=== PATIENT | female | born 1945 | race Caucasian/White ===

== ENCOUNTER → 2016-05-18 | Outpatient (CLI) | payer OTHER, MEDICARE | LOC: FIMAGING 10:35 | DX: Z12.31 Encounter for screening mammogram for malignant neoplasm of breast (principal); Z85.3 Personal history of malignant neoplasm of breast; Z80.3 Family history of malignant neoplasm of breast | CPT/HCPCS: G0202 ==

== ENCOUNTER → 2016-05-29 | Outpatient (CLI) | payer OTHER, MEDICARE | LOC: FIMAGING 10:15 | PROVIDERS: ATTEND Internal Medicine | DX: L90.5 Scar conditions and fibrosis of skin (principal) ==

== ENCOUNTER 2017-03-01 10:20 | Day surgery (SDC) | payer OTHER, MEDICARE ==
--- NOTE | 2017-03-01 07:23 | PDHPUP ---
History & Physical Update H&P update statement: This history and physical update is based on an assessment of the patient which was completed after admission or registration (within 24 hours), but prior to the surgery/procedure. updated
[~2017-03-01 10:20] MED LIST: CLINDAMYCIN 900 MG/DEXTROSE 50 ML IV ONE
[2017-03-01] MEDS ORDERED: LIDOCAINE 1% 2 ML INJ ID PRN (10:31)
[2017-03-01] MEDS ORDERED: LR 1,000 ML IV ONE (10:31)
[2017-03-01 11:07] VITALS: PULSE 74
[2017-03-01] MEDS ORDERED: CLINDAMYCIN 900 MG/DEXTROSE 50 ML IV ONE (11:30)
--- NOTE | 2017-03-01 11:43 | PDANEPAE ---
ANE History of Present Illness I& D of R breast ANE Past Medical History - Cardiovascular History Hx Hypertension: Yes Hx Arrhythmias: No Hx Chest Pain: No Hx Coronary Artery / Peripheral Vascular Disease: No Hx CHF / Valvular Disease: No Hx Palpitations: No Cardiovascular History Comment: AORTIC REGURITATION. HX PVC'S,SINUS TACH - Pulmonary History Hx COPD: No Hx Asthma/Reactive Airway Disease: Yes Hx Oxygen in Use at Home: No Hx Sleep Apnea: No Sleep Apnea Screening Result - Last Documented: Negative Pulmonary History Comment: ASTHMA TRIGGERS VIRUS. PE 1983 - Neurologic History Hx Cerebrovascular Accident: No Hx Seizures: No Hx Dementia: No - Endocrine History Hx Diabetes: Yes Endocrine History Comment: NIDDM - Renal History Hx Renal Disorders: No - Liver History Hx Hepatic Disorders: No - Neurological & Psychiatric Hx Hx Neurological and Psychiatric Disorders: No - Cancer History Hx Cancer: Yes Cancer History Comment: BREAST POST LYMPHEDEMA - Congenital Disorder History Hx Congenital Disorders: No - GI History Hx Gastrointestinal Disorders: Yes Gastrointestinal History Comment: REFLUX - Other Health History Other Health History: RT LEG RELLEX SYMPATHETIC DYSTROPHY. CHRONIC SINUS - Chronic Pain History Chronic Pain: Yes (RT BREAST) - Surgical History Prior Surgeries: RT BREAST LUMPECTOMY 01/29/2017 DEVELOPED POST HEMATOMA. RT EYE VITRECTOMY 04/2014. RT BREAST LUMPECTOMY. RT KNEE SCOPE. RT SHLDR SCOPE. LT ARM ORIF. APPENDECTOMY ANE Review of Systems Review of Systems: - Exercise capacity METS (RN): 4 METS ANE Patient History - Allergies Allergies/Adverse Reactions: meperidine HCl [From Demerol] Allergy (Intermediate, Verified 01/15/14 00:03) TACHYCARDIC levofloxacin [From Levaquin] Allergy (Mild, Verified 01/15/14 00:03) "COULDNT STAND UP - NO STRENGTH" epinephrine [Epinephrine] Allergy (Unknown, Verified 01/15/14 00:03) TACHYCARDIC acetaminophen [From Percocet] Allergy (Verified 03/01/17 11:27) Other-Enter Comments oxycodone [From Percocet] Allergy (Verified 03/01/17 11:27) Other-Enter Comments Penicillins Allergy (Verified 01/15/14 00:03) THROAT SWELLING - Home Medications Home Medications: Atenolol [Tenormin 50 mg (RX)] 50 mg PO DAILY06 01/15/14 [Last Taken 03/01/17] CETIRIZINE HCL [ZYRTEC] 10 mg PO DAILY06 01/15/14 [Last Taken 02/28/17] Fluticasone Nasal [Flonase Nasal [place] (RX)] 1 sprays NASAL PRN 01/15/14 [Last Taken 02/28/17] Losartan Potassium [Cozaar] 100 mg PO DAILY06 01/15/14 [Last Taken 03/01/17] Montelukast Sodium [Singulair] 10 mg PO DAILY06 01/15/14 [Last Taken 03/01/17] metFORMIN HCL [Glucophage] 500 mg PO DAILY06 01/15/14 [Last Taken 02/28/17] Herbal Drugs DAILY 02/28/17 [Last Taken 02/22/17] Nexium DAILY06 02/28/17 [Last Taken 03/01/17] - NPO status NPO Since - Liquids (Date): 03/01/17 NPO Since - Liquids (Time): 08:00 NPO Since - Solids (Date): 02/28/17 NPO Since - Solids (Time): 21:30 - Anes Hx Hx Anesthesia Complications (with details): postoperative hypoxia with previous anesthetics - Smoking Hx Smoking Status: Never smoked - Alcohol Use Alcohol Use: Rarely - Family Anes Hx Family Anes Hx: none ANE Labs/Vital Signs - Vital Signs Blood Pressure: 133/81 Heart Rate: 74 Respiratory Rate: 14 O2 Sat (%): 93 Height: 173.99 cm Weight: 95.254 kg ANE Physical Exam - Airway Neck exam: FROM Mallampati Score: Class 1 Mouth exam: normal dental/mouth exam - Pulmonary Pulmonary: clear to auscultation - Cardiovascular Cardiovascular: regular rate and rhythym (1) ANE Anesthesia Plan Anesthesia Plan: general endotracheal anesthesia (possibility of need for postop O2 use discussed.)
[2017-03-01] MEDS ORDERED: MIDAZOLAM 2 MG/2 ML VIAL IVP ONE (11:48)
[2017-03-01] MEDS ORDERED: REMIFENTANIL HCL 1 MG VIAL ONE (11:59)
[2017-03-01] MEDS ORDERED: PROPOFOL 200 MG/20 ML VIAL ONE (12:00)
[2017-03-01] MEDS ORDERED: ROCURONIUM 50 MG/5 ML VIAL ONE (12:06)
[2017-03-01] MEDS ORDERED: DEXAMETHASONE 4 MG/ML VIAL ONE (12:06)
[2017-03-01] MEDS ORDERED: BUPIVACAINE 0.5% 30 ML SDV ONE (12:09)
[2017-03-01] MEDS ORDERED: PHENYLEPHRINE HCL 100 MCG/ML SYR ONE (12:17)
[2017-03-01] MEDS ORDERED: THROMBIN (BOVINE) 5,000 UNIT VIAL TP ONE (12:36)
[2017-03-01] MEDS ORDERED: GLYCOPYRROLATE 0.2 MG/1 ML VIAL ONE ×2 (12:45)
[2017-03-01] MEDS ORDERED: NEOSTIGMINE METHYLSULFATE 3 MG/3 ML SYR ONE (12:45)
--- NOTE | 2017-03-01 12:49 | POSTOPPROG ---
Post Op Note Date of Operation: 03/01/17 Surgeon: José Arango Anesthesiologist: CARMEN Anesthesia: GET(General Endotracheal) Pre-op Diagnosis: RIGHT BREAST HEMATOMA Post-op Diagnosis: SAME Indication: PAIN Procedure: I&D RT BREAST HEMATOMA Findings: 50 CC HEMATOMA Inf/Abcess present in the surg proc area at time of surgery?: No Depth: Deep Incisional (Fascial) EBL: Minimal Complications: 0 Drains: Grant Graham
[2017-03-01] MEDS ORDERED: ALBUTEROL 3 ML DEYVIAL IH PRN (13:01)
[2017-03-01] MEDS ORDERED: ALBUTEROL 3 ML DEYVIAL ONE (13:10)
--- NOTE | 2017-03-01 14:01 | PDHOMEO2F ---
Home Oxygen Face to Face Home Orders: I certify that a physician or a nurse practitioner or physician's assistant elementary teacher has had a [id number] encounter with this patient on the date of this order due to the diagnosis listed, which relates to the primary reason the patient requires home oxygen. Alternative treatments have been tried, or considered, and deemed ineffective. It is anticipated that supplemental oxygen will result in improvement with treatment. Home oxygen qualifying diagnosis: postop hypoxia SpO2 on room air (%): 84 Frequency of home oxygen needed: continuous Home oxygen liters per minute: 0.5-2 l/min to maintain O2Sat > 92 Home oxygen delivery device: nasal cannula Concentrator: Yes E-tanks for mobility and back up: Yes If ordering portable O2, is the patient mobile in the home?: Yes I certify that, based on these findings, the home oxygen is medically necessary for this patient for the following length of time. Length of time home oxygen needed: 1 week
[2017-03-01] MEDS ORDERED: IBUPROFEN 800 MG TAB PO ONE (14:06)
--- NOTE | 2017-03-01 14:09 | POSTANESTH ---
Post Anesthetic Evaluation Cardiovascular Status: Normal, Stable Respiratory Status: Tx Decrease in SpO2 Level of Consciousness/Mental Status: Can Participate in Eval Pain Control: Adequate, Prn Tx Ordered Nausea/Vomiting Control: Adequate, Prn Tx Ordered Complications Possibly Related to Anesthesia: Other, See Comments (patient with postoperative hypoxia after general anesthesia. She will require supplemental O2 at home. Discussed with patient, questions answered.)
[2017-03-01] MEDS ORDERED: IBUPROFEN 200 MG TAB PO ONE (14:13)
[2017-03-01 14:44] VITALS: RESP 19
[2017-03-01 17:06] VITALS: BP 127/87; O2SAT 95
[2017-03-01 17:09] VITALS: TEMP 98.1
== END 2017-03-01 16:40 | disposition home or self-care (01) ==
LOC: FSGY 10:20
PROVIDERS: ATTEND Surgery
PROC: 0H9T0ZZ Drainage of Right Breast, Open Approach (ICD-10-PCS; principal; 2017-03-01 11:45)
DX: N64.89 Other specified disorders of breast (principal); L76.32 Postprocedural hematoma of skin and subcutaneous tissue following other procedure; N64.4 Mastodynia; I10 Essential (primary) hypertension; J45.909 Unspecified asthma, uncomplicated; K22.70 Barrett's esophagus without dysplasia; I35.1 Nonrheumatic aortic (valve) insufficiency; E11.9 Type 2 diabetes mellitus without complications; Z85.3 Personal history of malignant neoplasm of breast; Z86.711 Personal history of pulmonary embolism
CPT/HCPCS: J1100; J2250; J2370; J2704; J2710

== ENCOUNTER 2017-03-11 21:19 | Emergency (ER) | payer OTHER, MEDICARE ==
[2017-03-11 21:26] VITALS: RESP 18
--- NOTE | 2017-03-11 22:14 | EDPHY ---
H & P Time Seen by Provider: 03/11/17 21:37 HPI/ROS: CHIEF COMPLAINT: [Breast swelling, pain ] HISTORY OF PRESENT ILLNESS: The patient is a 72-year-old female with a remote history of breast cancer in 2008. She had a lumpectomy at that time. Patient had a repeat lumpectomy on 01/29/2017. She subsequently developed hematoma. This required repeat surgery on 03/07/2017. A drain was placed. On Saturday the patient saw her physician, Dr. Arango, and her breasts was noted to be slightly more red and swollen. The drain was pulled. Patient was started on Bactrim. The patient states that since that time she has had increased swelling and pain. Drastically increased today. She also reports fevers and chills. Her temperature was 100degrees at home. She describes moderate pain. Her daughter is a nurse. She states that this is much more red and swollen than it had been yesterday. REVIEW OF SYSTEMS: My complete review of systems is negative except as mentioned in the HPI. Past Medical/Surgical History: Includes breast cancer, prediabetes, asthma, coronary artery disease with [place] Past surgical history: Lumpectomy Social history: Patient works at [employer]. She denies smoking. Smoking Status: Never smoked Physical Exam: 37.1, 131/90, 82, 18, 97% on room air GENERAL: Well-appearing, in no acute distress, alert. HEENT: Eyes normal to inspection, normal pharynx, no signs of dehydration. NECK: [No thyromegaly, no lymphadenopathy, supple. RESPIRATORY: Clear to auscultation bilaterally, no rales, rhonchi or wheezing. Chest: Patient has a markedly swollen right breast. There is significant erythema surrounding the breast. This is warm to touch. There is streaking into the right axilla. There is a 4 in palpable mass. This is not fluctuant. CVS: Regular rate and rhythm, no rubs, murmurs, or gallops. ABDOMEN: Soft, nontender, nondistended, no organomegaly. BACK: Normal to inspection, no CVA tenderness. SKIN: Normal color, no rash, warm, dry. No pallor. EXTREMITIES: No pedal edema, no calf tenderness, no Homans sign or cords, no joint swelling. NEURO/PSYCH: Alert and oriented x3, normal mood and affect, normal motor sensory exam. No obvious cranial nerve deficit. Constitutional: Initial Vital Signs Temperature (C) 37.1 C 03/11/17 21:25 Heart Rate 82 03/11/17 21:25 Respiratory Rate 18 03/11/17 21:25 Blood Pressure 131/90 H 03/11/17 21:25 O2 Sat (%) 97 03/11/17 21:25 O2 Delivery Mode Room Air Allergies/Adverse Reactions: meperidine HCl [From Demerol] Allergy (Intermediate, Verified 03/11/17 21:27) TACHYCARDIC levofloxacin [From Levaquin] Allergy (Mild, Verified 03/11/17 21:27) "COULDNT STAND UP - NO STRENGTH" epinephrine [Epinephrine] Allergy (Unknown, Verified 03/11/17 21:27) TACHYCARDIC oxycodone [From Percocet] Allergy (Verified 03/11/17 21:27) Other-Enter Comments Penicillins Allergy (Verified 03/11/17 21:27) THROAT SWELLING Home Medications: Medication Instructions Recorded Atenolol [Tenormin 50 mg (RX)] 50 mg PO DAILY06 01/15/14 CETIRIZINE HCL [ZYRTEC] 10 mg PO DAILY06 01/15/14 Fluticasone Nasal [Flonase Nasal 1 sprays NASAL PRN 01/15/14 [place] (RX)] Losartan Potassium [Cozaar] 100 mg PO DAILY06 01/15/14 Montelukast Sodium [Singulair] 10 mg PO DAILY06 01/15/14 metFORMIN HCL [Glucophage] 500 mg PO DAILY06 01/15/14 Herbal Drugs DAILY 02/28/17 Nexium DAILY06 02/28/17 Medical Decision Making ED Course/Re-evaluation: In the emergency department I discussed possible etiologies with the patient and her daughter. I answered all her questions. IV was placed. Laboratory studies and blood cultures were obtained. Patient was given vancomycin 1 g IV. I discussed the case with Dr. Burden who will admit the patient for further evaluation and care. I discussed the plan with the patient. I answered all her questions. Differential Diagnosis: My differential includes but is not limited to cellulitis, abscess, malignancy, mass, bacteremia, sepsis Departure - Departure Disposition: [facility] Inpatient Acute Clinical Impression: Cellulitis Qualifiers: Site of cellulitis: other site Qualified Code(s): L03.818 - Cellulitis of other sites Condition: Good Referrals: Lilia Romero MD [Primary Care Provider] - As per Instructions
[2017-03-11] MEDS ORDERED: VANCOMYCIN HCL/NORMAL SALINE 250 ML IV ONE (22:22)
[2017-03-11 22:28] LABS: PLATELET COUNT 353 10^3/uL (150-400)
[2017-03-11 22:37] LABS: INR 1.03 (0.83-1.16); PROTIME(PATIENT) 13.7 SEC (12.0-15.0)
[2017-03-11 23:01] VITALS: TEMP 97.9
[2017-03-11] MEDS ORDERED: NS 1,000 ML IV ONE (23:24)
[2017-03-12 00:54] VITALS: BP 117/70; PULSE 75; O2SAT 96
--- NOTE | 2017-03-12 03:13 | GCON ---
[f rep st] CONSULTATION DATE OF CONSULTATION: 03/11/2017 CHIEF COMPLAINT: Right breast pain. HISTORY OF PRESENT ILLNESS: This is a 72-year-old, patient of my partner Dr. Arango. Briefly, she had lumpectomy all the way back in 2008 and had a persistent area of what appeared to be necrotic breast tissue and was subsequently taken back for repeat lumpectomy in January of this year. At any rate, had a hematoma at the residual operative site and subsequently went back last week on the with Dr. Arango where this was washed out and a drain was placed on an outpatient procedure. She subsequently went home. She followed up with him in clinic this last Saturday. The drain output was fairly minimal, and there was no residual cellulitis, and the drain was subsequently removed. She states that Donnie she felt well, yesterday began to have what appeared to be more general malaise feeling, but otherwise felt fine. She did have a little bit of increasing fullness in her breast and today this increased even more so to the point where she had worsening cellulitis and pain at the area in addition to the cellulitis and pain, which she describes as burning, constant, and nonradiating 7/10 at worst intensity. She does endorse having chills, but without gregoria fever. Because of this, she presented to the emergency department. Upon presentation, she was evaluated by the ED physician, who noted a fair amount of induration and fluctuance on the right breast. On my examination, currently the patient complains of the same. She has gotten some pain medicine, which has helped somewhat. She is overall well-appearing, but does still complain of persistent pain. She is currently taking Bactrim, which was prescribed on Saturday for the cellulitis, which I think is appropriate. PAST MEDICAL HISTORY: Breast cancer, pre-diabetes, asthma, coronary artery disease with a history of CA. PAST SURGICAL HISTORY: Lumpectomy x2. 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 Denies illicit drug use. Nonsmoker. REVIEW OF SYSTEMS: A full 10-point review was performed and, unless explicitly stated above, is otherwise negative. PHYSICAL EXAMINATION: VITAL SIGNS: Temp 36.6, blood pressure 104/84, her heart rate is 76, and she is 94% on room air. CONSTITUTIONAL: She is in no apparent distress. She appears comfortable. EYES: Her pupils are equal, round , and reactive to light and accommodation. EARS, NOSE, MOUTH, THROAT: Moist mucous membranes. Her hearing is normal. CARDIOVASCULAR: She has a regular rate and rhythm without murmur. RESPIRATORY: She has no respiratory distress, rales, or rhonchi. BREASTS: The previous drainage and drain sites on the right breast are well healed. In the superior portion of the central portion of the breast, there is a significant amount of induration with central fluctuance, which is tender to palpation. There is no nipple drainage or ipsilateral axillary adenopathy. The left breast is unremarkable. SKIN: Aside from the cellulitis on the right breast, she has no other skin lesions. MUSCULOSKELETAL: Full strength, no weakness, no tenderness. NEUROLOGIC: She is alert and oriented x3. Her cranial nerves 2-12 are intact. PSYCH: She is interacting appropriately, she is not anxious, and she has a linear thought process. LYMPH/HEMO/IMMUNOLOGIC: No cervical, axillary, or groin lymphadenopathy appreciated. LABORATORY DATA: Leukocytosis to 12,000 without a left shift. H and H 12 and 36. Coag's are normal. Chemistry is unremarkable. Bedside ultrasound performed by me does show a significant probably 3 x 2 fluid collection 2 cm deep to the area of greatest induration, which appears simple without loculations. ASSESSMENT AND PLAN: A 72-year-old female with breast cellulitis and underlying fluid collection status post drainage procedure. I discussed my findings with the patient. It appears as though the fluid collection has recurred. The overlying cellulitis, at this point is not overly concerning, but I do feel that she warrants aspiration here at the bedside to remove that residual fluid collection today. I also told her that given the aggressive nature of the fluid recurrence and cellulitis that she would likely benefit from at least a dose of IV antibiotics and re-evaluation to see whether or not she meets criteria for admission at that point in time or can be discharged home. She is eager to be discharged home. After discussing the risks, benefits , and alternatives, she does wish to proceed with bedside aspiration. Please see separate dictation for this. /[id number]/MODL MTDD
--- NOTE | 2017-03-12 03:17 | GOP ---
[f rep st] OPERATIVE REPORT DATE OF OPERATION: 03/11/2017 SURGEON: Ignacio Burden MD FINANCIAL REPORTING ANALYST: None. ANESTHESIA: 1% lidocaine. PREOPERATIVE DIAGNOSIS: Right breast hematoma. POSTOPERATIVE DIAGNOSIS: Right breast hematoma. PROCEDURE PERFORMED: Right breast fluid aspiration, ultrasound-guided. FINDINGS: Fluid completely removed, approximately 45 cc in total. It did appear somewhat purulent. Cultures were taken. SPECIMENS: Fluid for culture. DESCRIPTION OF PROCEDURE: The patient was greeted in the Emergency Room [place]. After describing the r isks, benefits, and alternatives, consent was signed. A World Health Organization time-out was perfo rmed, after which the right breast was prepped and draped in the typical sterile fashion. I anesthet ized the area using approximately 5 cc of 1% lidocaine without epinephrine. After successful anesthe tization, I used an 18-gauge needle and successfully entered the cavity, which was identified via ult rasound guidance. Once in the cavity, I removed approximately 45 cc of mostly seropurulent fluid, a portion of which was sent for cultures. After this was done, hemostasis was obtained with gentle pre ssure. A post-procedure ultrasound showed that the fluid cavity had completely resolved. The patien t tolerated the procedure well, with no intraprocedural complications. DRAINS: None. /[id number]/MODL
== END 2017-03-12 00:52 | disposition still patient (30) ==
LOC: EEVIPCON 22:22 → UNDOADMOB 22:22
PROC: 0H9T3ZX Drainage of Right Breast, Percutaneous Approach, Diagnostic (ICD-10-PCS; principal; 2017-03-11)
DX: N61.0 Mastitis without abscess (principal); Z85.3 Personal history of malignant neoplasm of breast; E11.9 Type 2 diabetes mellitus without complications; I25.10 Atherosclerotic heart disease of native coronary artery without angina pectoris
CPT/HCPCS: 10021; 96361; 96365; 99285; J3370

== ENCOUNTER 2017-03-13 14:47 | Inpatient (IN) | payer OTHER, MEDICARE ==
[2017-03-13] MEDS ORDERED: ERTAPENEM 1 GM VIAL IVP SCH (16:30)
[2017-03-13] MEDS ORDERED: ONDANSETRON 4 MG/2 ML VIAL IVP PRN (16:31)
[2017-03-13] MEDS ORDERED: HYDROmorphONE/DILAUDID 1 MG/ML INJ IVP PRN (16:31)
[2017-03-13] MEDS ORDERED: diphenhydrAMINE 25 MG CAP PO PRN (16:32)
--- NOTE | 2017-03-13 18:45 | GHP ---
[f rep st] HISTORY AND PHYSICAL DATE OF ADMISSION: 03/13/2017 HISTORY OF PRESENT ILLNESS: The patient is a 72-year-old female with a history of breast cancer who is now status post right surgical breast biopsy with benign findings of stromal fibrosis and ductal h yperplasia without atypia. She developed a hematoma which was quite tender and eventually elected fo r incision and drainage. Her Esther drain was removed and her wound had healed. Two days ago, on mas, she developed increased tenderness, warmth, and general malaise. She was seen in the emerg ency department and underwent aspiration with reportedly gross purulence. About 45 mL were removed. This was confirmed with ultrasound guidance. Cultures ultimately revealed coagulase negative Staph and ESBL Klebsiella pneumonia. She was given vancomycin in the ED and told to continue her Bactrim. She returned today with increased tenderness and redness of her right breast despite the above. Als o, she and her daughter, who is a nurse, note a malodor. She denies fevers or chills but is feeling tired. No nausea, vomiting, diarrhea, or constipation. PAST MEDICAL AND SURGICAL HISTORY: Right breast cancer status post lumpectomy, shoulder surgery, RSD resulting from a crush injury of her lower extremity, lymphedema, hypertension, history of pulmonary embolism, section, arthroscopic knee surgery, ovarian cystectomy, appendectomy, tonsillecto my, breast lumpectomy. 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 She comes today with her daughter who is a nurse. She also has a grandchild. FAMILY HISTORY: Noncontributory. MEDICINES: Please see MAR. ALLERGIES: Penicillin, meperidine, levofloxacin, oxycodone, and epinephrine. REVIEW OF SYSTEMS: Negative aside from that in the HPI. PHYSICAL EXAMINATION: GENERAL: A well-developed, well-nourished, pleasant, 72-year-old female, aler t and oriented x3, in no acute distress. HEENT: Normocephalic, atraumatic. Mucous membranes moist. Sclerae anicteric. CHEST: Clear to auscultation bilaterally. CARDIAC: Regular rate and rhythm. ABDOMEN: Soft, nontender. BREAST EXAM: Right breast with tenderness, erythema and warmth. Incisi on is clean, dry, and intact. IMPRESSION: This is a 72-year-old female with a recurrent right breast abscess. PLAN: Admit the patient for observation and IV antibiotics. I have also discussed this with Dr. Shanta Pollard, who will assist in antibiotic selection and will continue to follow her along. We plan to br ing her to the operating room tomorrow for incision and drainage. We will hold any anticoagulants. Risks and options have been discussed with both Mahnaz and her daughter and they request to proceed. /[id number]/MODL
[2017-03-13] MEDS: diphenhydrAMINE 25 MG CAP PO PRN (20:36)
[2017-03-13] MEDS: ERTAPENEM 1 GM VIAL IVP SCH (21:23)
[2017-03-14] MEDS: ACETAMINOPHEN 325 MG TAB PO PRN ×2 (05:22→13:46)
--- NOTE | 2017-03-14 05:36 | GCON ---
[f rep st] CONSULTATION INFECTIOUS DISEASE CONSULTATION. DATE OF CONSULTATION: 03/13/2017 REQUESTING PHYSICIAN: JERMAN Butler. REASON FOR CONSULTATION: Right breast infection. HISTORY OF PRESENT ILLNESS: The patient is a 72-year-old female with a past medical history of breas t cancer, who underwent right-sided lumpectomy in January for persistent breast mass which revealed benign findings. Postoperatively, she developed a hematoma which required incision and drainage. Th e patient had a MAGALY drain in place which had stopped draining and subsequently was removed. Thereafte r, she developed recurrent erythema, edema, and tenderness. This was associated with significant mal aise with chills but no fever. The patient had progressive symptoms prompting her evaluation in the emergency department on 03/11/2017. She underwent aspiration of a recurrent fluid collection at that point in time, which yielded 45 mL of seropurulent fluid. Gram stain of the specimen showed 1+ GPC these with 1+ gram-negative rods. Culture is currently growing an ESBL producing Klebsiella pneumoni ae. She also had blood cultures done at the time of presentation with 1 of 4 bottles showing coagula se-negative Staphylococcus. She was given a dose of vancomycin and discharged home on Bactrim. She initially felt significantly improved post aspiration, but developed recurrent pain, erythema, indura tion, and tenderness with malaise, prompting admission today. She is scheduled to undergo incision a nd drainage of the right breast in the a.m. She does not have any active fever. Did have subjective chills but no rigors. She also describes having intermittent flank pain over the last several days. She has had some nausea, but no vomiting or diarrhea. Given the ice impression she had a prior pen icillin allergy at age 8, which she described as being consistent with anaphylaxis. When she took Le vaquin, she developed tendinopathy in the hip. Given isolation of ESBL producing Klebsiella pneumoni ae, breast infection, and allergy history, I am now asked to assist in her ongoing management. 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 PAST SURGICAL HISTORY: Prior lumpectomy and lumpectomy as outlined above, shoulder surgery, C-sectio n, arthroscopic knee surgery, appendectomy, tonsillectomy. MEDICATIONS: Prior to admission, Bactrim DS twice daily, metformin 500 mg p.o. daily, atenolol 25 mg p.o. daily, Zyrtec 10 mg p.o. daily, Flonase nasal spray daily, vitamin D 2000 units p.o. daily, pro biotics daily, losartan 100 mg p.o. daily, Singulair 10 mg p.o. daily, albuterol as needed, Nexium 40 mg p.o. daily, Flovent 1 puff twice daily. ALLERGIES: Penicillin associated with anaphylaxis at approximately age 8, levofloxacin associated wi th tendon inflammation and inability to ambulate, meperidine. Vancomycin associated with scalp itchi ng which is consistent with red man syndrome rather than true allergy. SOCIAL HISTORY: No tobacco or alcohol use. 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 FAMILY HISTORY: Noncontributory. REVIEW OF SYSTEMS: Outside that noted in the HPI, remainder of a review of systems is unremarkable. PHYSICAL EXAMINATION: VITAL SIGNS: Temperature 37.1, heart rate 82, respiratory rate 16, blood pres sure 113/74, oxygen saturation 92% on room air. GENERAL: Patient is well nourished, well developed, in no acute distress. She appears nontoxic. HEENT: There is no scleral icterus, conjunctival inje ction, or conjunctival petechiae. Oropharynx clear without lesions. Dentition is in good repair. M ucous membranes are moist. No nasal discharge. NECK: Supple without palpable lymphadenopathy or th yromegaly. CHEST: Clear to auscultation bilaterally without adventitious sounds. Respiratory effor t is normal. CARDIOVASCULAR: Regular rate and rhythm with a 2/6 systolic ejection murmur heard at t he left and right upper sternal borders. ABDOMEN: Soft, nontender, nondistended. There is no palpa ble organomegaly. BACK: No CVA tenderness bilaterally. BREASTS: Right breast shows erythema, dianne ration, warmth and tenderness over the upper quadrants bilaterally; no palpable fluctuance or express ible discharge. Erythema does not extend over the chest wall or into the upper extremity. MUSCULOSK ELETAL: No cyanosis, clubbing, or edema. LYMPHATICS: No cervical or supraclavicular nodes palpable . No lymphangitis in right upper extremity. NEUROLOGIC: Patient is alert and interacts appropriate ly with examiner. Cranial nerves 2-12 are grossly intact. Sensation is grossly intact. Muscle tone and bulk are normal. LABORATORY DATA: White blood cell count 12.5, hematocrit 36.6, platelets 353, neutrophils 53%, lymph ocytes 28%, creatinine 0.9 (laboratory data is from 03/11/2017). Blood cultures from 03/11/2017 with 1 of 4 bottles showing coagulase-negative Staph; breast cultures from 03/11/2017 showing 1+ GPC, 1+ gram-negative rods, 4+ white blood cells with growth of Klebsiella pneumoniae which is an ESBL produc ing organisms; no Gram positives are growing to date; isolate is resistant to Bactrim. IMPRESSION: 1. Right breast infection with probable recurrent infected hematoma/seroma: Cultures have shown aletha wth of extended-spectrum beta-lactamaseses producing Klebsiella pneumoniae and Gram stain also showed gram-positive cocci. No gram-positive key have grown, however. Will initiate therapy with ertape nem, which will provide activity against extended-spectrum beta-lactamaseses producing Klebsiella pne umoniae as well as activity against gram-positive key other than methicillin-resistant Staphylococc us aureus. Given allergy history is remote, suspect will tolerate ertapenem. Will premedicate with Benadryl prior to infusion. Agree with plans for incision and drainage of this will be necessary for definitive resolution. 2. Positive blood cultures: 1 of 4 bottles with growth of coagulase-negative Staphylococcus. Suspe ct this represents skin contamination rather than true bacteremia. 3. Penicillin allergy: See above discussion. RECOMMENDATIONS: 1. Ertapenem 1 g IV q.24 hours with Benadryl premedication. 2. Follow up prior cultures as available and will obtain new intraoperative cultures. 3. Repeat blood cultures x2 sets. 4. Contact isolation for ESBL. 5. Plan of care discussed with patient and family this evening. Thank you for this consultation. We will continue to follow the patient with you. /[id number]/MODL
[2017-03-14 05:48] LABS: PLATELET COUNT 437 10^3/uL (150-400)
[2017-03-14] MEDS: ERTAPENEM 1 GM VIAL IVP SCH (09:01)
[2017-03-14] MEDS ORDERED: MIDAZOLAM 2 MG/2 ML VIAL IVP ONE (09:26)
[2017-03-14] MEDS ORDERED: BUPIVACAINE 0.5% 30 ML SDV ONE (09:28)
--- NOTE | 2017-03-14 09:28 | PDANEPAE ---
ANE History of Present Illness R breast hematoma drainage, I and D ANE Past Medical History - Cardiovascular History Hx Hypertension: Yes Hx Arrhythmias: No Hx Chest Pain: No Hx Coronary Artery / Peripheral Vascular Disease: No Hx CHF / Valvular Disease: No Hx Palpitations: No Cardiovascular History Comment: AORTIC REGURITATION. HX PVC'S,SINUS TACH - Pulmonary History Hx COPD: No Hx Asthma/Reactive Airway Disease: Yes Hx Oxygen in Use at Home: No Hx Sleep Apnea: No Sleep Apnea Screening Result - Last Documented: Negative Pulmonary History Comment: ASTHMA TRIGGERS VIRUS. PE 1982. probable sleep apnea, requiring O2 recently - Neurologic History Hx Cerebrovascular Accident: No Hx Seizures: No Hx Dementia: No - Endocrine History Hx Diabetes: Yes Endocrine History Comment: NIDDM - Renal History Hx Renal Disorders: No - Liver History Hx Hepatic Disorders: No - Neurological & Psychiatric Hx Hx Neurological and Psychiatric Disorders: No - Cancer History Hx Cancer: Yes Cancer History Comment: BREAST POST LYMPHEDEMA - Congenital Disorder History Hx Congenital Disorders: No - GI History Hx Gastrointestinal Disorders: Yes Gastrointestinal History Comment: REFLUX - Other Health History Other Health History: RT LEG RELLEX SYMPATHETIC DYSTROPHY. CHRONIC SINUS - Chronic Pain History Chronic Pain: No (RT BREAST) - Surgical History Prior Surgeries: RT BREAST LUMPECTOMY 01/29/2017 DEVELOPED POST HEMATOMA. RT EYE VITRECTOMY 04/2014. RT BREAST LUMPECTOMY. RT KNEE SCOPE. RT SHLDR SCOPE. LT ARM ORIF. APPENDECTOMY ANE Review of Systems Review of systems is: negative Review of Systems: - Exercise capacity Exercise capacity: >=4 METS ANE Patient History - Allergies Allergies/Adverse Reactions: Penicillins Allergy (Severe, Verified 03/13/17 16:34) THROAT SWELLING meperidine HCl [From Demerol] Allergy (Intermediate, Verified 03/11/17 21:27) TACHYCARDIC levofloxacin [From Levaquin] Allergy (Mild, Verified 03/11/17 21:27) "COULDNT STAND UP - NO STRENGTH" oxycodone [From Percocet] Allergy (Mild, Verified 03/13/17 16:34) Other-Enter Comments epinephrine [Epinephrine] Allergy (Unknown, Verified 03/11/17 21:27) TACHYCARDIC - Home Medications Home Medications: Atenolol [Tenormin 50 mg (RX)] 25 mg PO DAILY06 01/15/14 [Last Taken 03/13/17] CETIRIZINE HCL [ZYRTEC] 10 mg PO DAILY06 01/15/14 [Last Taken 02/28/17] Fluticasone Nasal [Flonase Nasal [place] (RX)] 1 sprays NASAL DAILY PRN 01/15/14 [ Last Taken 02/28/17] Losartan Potassium [Cozaar] 100 mg PO DAILY06 01/15/14 [Last Taken 03/13/17] Montelukast Sodium [Singulair] 10 mg PO DAILY06 01/15/14 [Last Taken 03/13/17] Albuterol [Proventil Inhaler HFA (*)] 1 - 2 puffs IH Q4H PRN 03/13/17 [Last Taken Unknown] Cholecalciferol Vit D3 [Vitamin D3 (*)] 2,000 units PO DAILY 03/13/17 [Last Taken 03/13/17] Esomeprazole Mag Trihydrate [Nexium] 40 mg PO DAILY 03/13/17 [Last Taken ] Fluticasone Hfa 220 Mcg [Flovent 220 MCG Hfa MDI (*)] 1 puffs IH BID PRN [Last Taken Unknown] Herbals/Supplements -Info Only 1 ea PO DAILY 03/13/17 [Last Taken 03/13/17] metFORMIN HCL [Metformin HCl ER] 500 mg PO DAILY 03/13/17 [Last Taken 03/13/17] - NPO status NPO Since - Liquids (Date): 03/14/17 NPO Since - Liquids (Time): 00:00 NPO Since - Solids (Date): 03/14/17 NPO Since - Solids (Time): 00:00 - Smoking Hx Smoking Status: Never smoked ANE Labs/Vital Signs - Labs Result Diagrams: 03/14/17 05:35 03/14/17 05:35 - Vital Signs Blood Pressure: 115/65 Heart Rate: 86 Respiratory Rate: 16 O2 Sat (%): 88 Height: 173.99 cm Weight: 96.2 kg ANE Physical Exam - Airway Neck exam: FROM Mallampati Score: Class 1 Mouth exam: normal dental/mouth exam - Pulmonary Pulmonary: no respiratory distress - Cardiovascular Cardiovascular: regular rate and rhythym - ASA Status ASA Status: III ANE Anesthesia Plan Anesthesia Plan: GA w LMA
[2017-03-14] MEDS ORDERED: fentaNYL 100 MCG/2 ML INJ ONE (09:41)
[2017-03-14] MEDS ORDERED: DEXAMETHASONE 4 MG/ML VIAL ONE (09:41)
[2017-03-14] MEDS ORDERED: ONDANSETRON 4 MG/2 ML VIAL ONE (09:41)
[2017-03-14] MEDS ORDERED: LIDOCAINE 2% 100 MG/5 ML SYR ONE (09:41)
[2017-03-14] MEDS ORDERED: PROPOFOL 200 MG/20 ML VIAL ONE (09:41)
[2017-03-14] MEDS ORDERED: ACETAMINOPHEN 500 MG TAB PO PRN (10:03)
[2017-03-14] MEDS ORDERED: fentaNYL 100 MCG/2 ML INJ IVP PRN (10:03)
[2017-03-14] MEDS ORDERED: HYDROmorphONE/DILAUDID 1 MG/ML INJ IVP PRN (10:03)
[2017-03-14] MEDS ORDERED: DEXAMETHASONE 4 MG/ML VIAL IVP PRN (10:03)
[2017-03-14] MEDS ORDERED: NALOXONE HCL 0.4 MG/ML INJ IVP PRN (10:03)
[2017-03-14] MEDS ORDERED: ONDANSETRON 4 MG/2 ML VIAL IVP PRN (10:03)
[2017-03-14] MEDS ORDERED: HYDROCODONE/APAP 5/325 TAB PO PRN (10:03)
[2017-03-14] MEDS ORDERED: PROMETHAZINE HCL 25 MG/ML INJ IVP PRN (10:03)
--- NOTE | 2017-03-14 10:03 | POSTANESTH ---
Post Anesthetic Evaluation Cardiovascular Status: Similar to Pre-Op Cond Respiratory Status: Similar to Pre-op Cond. Level of Consciousness/Mental Status: Can Participate in Eval, Moderately Sleepy Pain Control: Adequate, Prn Tx Ordered Nausea/Vomiting Control: Adequate, Prn Tx Ordered Complications Possibly Related to Anesthesia: None Noted
[2017-03-14] MEDS ORDERED: HYDROmorphone HCL/NS/PF 0.4 MG/2 ML SYR IVP PRN (10:30)
[2017-03-14] MEDS ORDERED: FLUTICASONE NASAL 120 SPRAYS/16 GM MDI EACHNARE PRN (10:37)
[2017-03-14] MEDS ORDERED: FLUTICASONE HFA 220 MCG MDI IH PRN (10:37)
--- NOTE | 2017-03-14 10:42 | POSTOPPROG ---
Post Op Note Date of Operation: 03/14/17 Surgeon: José Arango Back Hoe Operator: Hossein Lomax Anesthesiologist: Dr Grady Anesthesia: GET(General Endotracheal) Pre-op Diagnosis: right breast abscess Post-op Diagnosis: same Indication: same, infection Procedure: R breast I&D Findings: abscess, small amount of purulent material Inf/Abcess present in the surg proc area at time of surgery?: Yes Depth: Deep Incisional (Fascial) EBL: Minimal Drains: [place] Specimen(s): cultures
[2017-03-14] MEDS ORDERED: NON-FORMULARY NEW DRUG (Losartan Potassium [Cozaar] 100 MG) PO SCH (10:45)
[2017-03-14] MEDS ORDERED: NON-FORMULARY NEW DRUG (Esomeprazole Mag Trihydrate [Nexium] 40 MG) PO SCH (10:45)
[2017-03-14] MEDS ORDERED: CETIRIZINE HCL 10 MG PO SCH (10:45)
--- NOTE | 2017-03-14 11:33 | GOP ---
[f rep st] OPERATIVE REPORT DATE OF OPERATION: 03/14/2017 SURGEON: José Arango MD INSPECTOR RAG SORTING: JERMAN Smith ANESTHESIOLOGIST: Dave Grady MD PREOPERATIVE DIAGNOSIS: Breast abscess POSTOPERATIVE DIAGNOSIS: Breast abscess. PROCEDURE PERFORMED: Right breast mastotomy and drainage. FINDINGS: The patient was found to have a previous biopsy pocket containing some purulent fluid with some gas in the pocket. DESCRIPTION OF PROCEDURE: The patient was taken to the operating room where she received satisfactor y general and mask anesthesia by Dr. Grady. She was placed in supine position, prepped and draped in the usual sterile fashion. Incision was made through a previous old incision, carried through th e subcutaneous tissue to the breast tissue. The biopsy cavity was entered. A fair amount of purulen t fluid was encountered along with some gas, this was all drained out and suctioned clear and then co piously irrigated and sharply debrided in a few areas. Two 0.5 inch [place] drains were brought out through the wound and secured to the skin with 3-0 nylon sutures. The wound was dressed. She tolera bri the procedure well. There were no complications. She was taken to the recovery room in good con dition. /[id number]/MODL
--- NOTE | 2017-03-14 15:14 | ASMTCMCOM ---
CM Note CM Note Notes: Spoke w/RN, pt went to surgery today for drainage of wound, had drain placed. Unclear if will need IV abx, GRIS w/f. Date Signed: 03/14/2017 03:14 PM Electronically Signed By:Jade Vergara RN
[2017-03-14] MEDS: CETIRIZINE 10 MG TAB PO SCH (15:57)
[2017-03-14] MEDS: ATENOLOL 50 MG TAB PO SCH (15:57)
[2017-03-14] MEDS: MONTELUKAST SODIUM 10 MG TAB PO SCH (15:57)
[2017-03-14] MEDS: LOSARTAN POTASSIUM 50 MG TAB PO SCH (15:58)
[2017-03-14] MEDS: PANTOPRAZOLE SODIUM 40 MG TAB PO SCH (15:58)
[2017-03-14] MEDS: metFORMIN SR 500 MG TAB PO SCH (15:58)
--- NOTE | 2017-03-14 16:31 | PCMIDPN ---
Assessment/Plan: Assessment: Right breast infected hematoma. Status post incision and drainage. Patient feels much better. Prior cultures positive for Klebsiella pneumoniae. This isolate has ESBL characteristics. Covering currently with ertapenem 1 g daily. Plan for a 2 week duration of treatment. Probable PICC line placement tomorrow. Plan: 1. Continue IV ertapenem 1 g daily. 2. PICC line placement tomorrow. 3. Probable discharge home with 2 weeks of home IV antibiotics verses infusion center. 03/14/17 17:12 03/14/17 17:13 Subjective: Patient is resting in her hospital bed. She feels better than yesterday and definitely better than this weekend. Still feels weak and unable to go home. No fevers or chills. Objective: Ertapenem # 2 Vital Signs Temp Pulse Resp BP Pulse Ox 37.1 C 82 16 112/67 92 03/14/17 15:53 03/14/17 15:53 03/14/17 15:53 03/14/17 15:53 03/14/17 15:53 Microbiology 03/14/17 10:14 Gram Stain - Final Breast - Eswab Laboratory Results 03/14/17 05:35 03/14/17 05:35 03/13/17 03/14/17 03/15/17 05:59 05:59 05:59 Intake Total 240 200 Balance 240 200 - Physical Exam General Appearance: WD/WN, alert, no apparent distress, non-toxic Skin: normal color, warm/dry, No rash Neuro/Psych: alert, normal mood/affect, oriented x 3 ICD10 Worksheet Patient Problems: Problems Problem Status Onset Cellulitis Acute
[2017-03-14] MEDS: HYDROCODONE/APAP 5/325 TAB PO PRN (20:50)
[2017-03-15] MEDS: HYDROCODONE/APAP 5/325 TAB PO PRN ×2 (00:12→21:40)
[2017-03-15] MEDS: LOSARTAN POTASSIUM 50 MG TAB PO SCH (05:35)
[2017-03-15] MEDS: MONTELUKAST SODIUM 10 MG TAB PO SCH (05:36)
[2017-03-15] MEDS: ATENOLOL 50 MG TAB PO SCH (05:36)
[2017-03-15] MEDS: ACETAMINOPHEN 325 MG TAB PO PRN ×2 (05:45→14:20)
[2017-03-15] MEDS: CETIRIZINE 10 MG TAB PO SCH (08:38)
[2017-03-15] MEDS: metFORMIN SR 500 MG TAB PO SCH (08:38)
[2017-03-15] MEDS: PANTOPRAZOLE SODIUM 40 MG TAB PO SCH (08:38)
[2017-03-15] MEDS: diphenhydrAMINE 25 MG CAP PO PRN (08:38)
[2017-03-15] MEDS ORDERED: NON-FORMULARY NEW DRUG (Metformin Hcl [Metformin Hcl Er] 500 MG) PO SCH (09:00)
[2017-03-15] MEDS ORDERED: ALTEPLASE 2 MG VIAL IVP PRN (09:18)
[2017-03-15] MEDS: ERTAPENEM 1 GM VIAL IVP SCH (09:23)
--- NOTE | 2017-03-15 09:47 | ASMTCMCOM ---
CM Note CM Note Notes: Spoke w/pt, will likely need home IV infusion. CM faxed [employer] and pt would like [facility] for homecare, Gissel at [facility] notified. DC Plan: home care + Home infusion? Date Signed: 03/15/2017 09:46 AM Electronically Signed By:Jade Vergara RN
--- NOTE | 2017-03-15 12:44 | SOAPPROG ---
SOAP Progress Note Assessment/Plan: Assessment: 72-year-old female status post right breast incision and drainage postop day 1 Worried about increased hardness around surgical site, no fevers, tolerating diet, pain well controlled, reports there was significant drainage during the night when she rolled over a out of [place] drain site. Physical exam Nontoxic alert accompanied by daughter Right breast incision clean, mostly dry comma [place] in place, firm tissue superior and lateral to the incision likely indurated indurated versus hematoma Plan: Continue antibiotics per Infectious Disease, likely discharge on Saturday Patient seen examined by Dr. Arango 03/15/17 12:43 Objective: Vital Signs Temp Pulse Resp BP Pulse Ox 36.9 C 68 14 107/65 90 L 03/15/17 11:51 03/15/17 11:51 03/15/17 11:51 03/15/17 11:51 03/15/17 11:51 Microbiology 03/14/17 10:14 Gram Stain - Final Breast - Eswab Laboratory Results 03/14/17 05:35 03/14/17 05:35 03/14/17 03/15/17 03/16/17 05:59 05:59 05:59 Intake Total 240 1450 Balance 240 1450 ICD10 Worksheet Patient Problems: Problems Problem Status Onset Cellulitis Acute
--- NOTE | 2017-03-15 16:15 | ASMTCMCOM ---
CM Note CM Note Notes: Received call from Radha at [facility], pt unfortunately in the "donught hole" for infusion coverage, so she would have to pay $993.00 per week for IV abx. Pt notified and would prefer to do outpt infusion if necessary. DC Plan: [facility] (RN) Date Signed: 03/15/2017 04:15 PM Electronically Signed By:Jade Vergara RN
--- NOTE | 2017-03-15 18:01 | PCMIDPN ---
Assessment/Plan: Assessment: Right breast infected hematoma. Status post incision and drainage. Patient feels much better. Prior cultures positive for Klebsiella pneumoniae. This isolate has ESBL characteristics. Covering currently with ertapenem 1 g daily. Plan for a 2 week duration of treatment. PICC line today. Plan: 1. Continue IV ertapenem 1 g daily. 2. PICC line placement today. 3. Probable discharge home with 2 weeks of home IV antibiotics verses infusion center. Subjective: Patient doing fairly well. Surgery in to re-evaluate operative area. No plans for return to surgery. Objective: Ertapenem # 3 Vital Signs Temp Pulse Resp BP Pulse Ox 36.8 C 69 12 107/62 92 03/15/17 15:49 03/15/17 15:49 03/15/17 15:49 03/15/17 15:49 03/15/17 15:49 Microbiology 03/14/17 10:14 Gram Stain - Final Breast - Eswab Laboratory Results 03/14/17 05:35 03/14/17 05:35 03/14/17 03/15/17 03/16/17 05:59 05:59 05:59 Intake Total 240 1450 Balance 240 1450 - Physical Exam General Appearance: WD/WN, alert, no apparent distress, non-toxic Skin: normal color, rash, other (Right breast with mild amount of erythema and induration surrounding operative site.) Neuro/Psych: alert, normal mood/affect, oriented x 3 ICD10 Worksheet Patient Problems: Problems Problem Status Onset Cellulitis Acute
[2017-03-16] MEDS: LOSARTAN POTASSIUM 50 MG TAB PO SCH (05:29)
[2017-03-16] MEDS: ATENOLOL 50 MG TAB PO SCH (05:29)
[2017-03-16] MEDS: MONTELUKAST SODIUM 10 MG TAB PO SCH (05:30)
[2017-03-16] MEDS ORDERED: Herbals/Supplements -Info Only PO SCH (09:00)
[2017-03-16] MEDS: diphenhydrAMINE 25 MG CAP PO PRN (09:44)
[2017-03-16] MEDS: PANTOPRAZOLE SODIUM 40 MG TAB PO SCH (09:44)
[2017-03-16] MEDS: metFORMIN SR 500 MG TAB PO SCH (09:44)
[2017-03-16] MEDS: CETIRIZINE 10 MG TAB PO SCH (09:45)
[2017-03-16] MEDS: ERTAPENEM 1 GM VIAL IVP SCH (10:40)
--- NOTE | 2017-03-16 11:33 | SOAPPROG ---
SOAP Progress Note Assessment/Plan: Assessment: continues to have mastitis Requests wound vac Placed with Vashe solution verafbk My first time seeing her. She reports some areas of her breast are worse and others are better. erythema and induration around breast upper inner quadrant more prounounced Cavity with some slough [place] applied Plan: 03/16/17 11:32 Objective: Vital Signs Temp Pulse Resp BP Pulse Ox 37.1 C 74 16 105/60 92 03/16/17 11:29 03/16/17 11:29 03/16/17 11:29 03/16/17 11:29 03/16/17 11:29 Microbiology 03/14/17 10:14 Gram Stain - Final Breast - Eswab Laboratory Results 03/14/17 05:35 03/14/17 05:35 03/15/17 03/16/17 03/17/17 05:59 05:59 05:59 Intake Total 1450 Balance 1450 ICD10 Worksheet Patient Problems: Problems Problem Status Onset Cellulitis Acute
--- NOTE | 2017-03-16 11:50 | PCMIDPN ---
Assessment/Plan: Assessment/Plan: 1. Right breast infected hematoma/abscess: - Cx with ESBL klebsiella. -currenlty on invanz therapy. - wound vac applied this AM, with improvement and near resolution of previous erythema. -induration present - monitor clinically. if still significantly indurated tomorrow especially in a noncontinuous area, may need a f/u [facility]. Reassess in Am. -check labs in Am. -interagency done. - care coordinated with RN and case management. - picc line in place - blood cx from 03/03 ngtd - plan of care reviewed in detail with patient, daughter at bedside. med invanz 1g daily- 03/13/17 Subjective: afebrile. sitting in chair. denies sob, cough. denies abd pain or diarrhea. having formed stools. had increase in redness, this AM. wound vac placed and this has since improved. Objective: Vital Signs Temp Pulse Resp BP Pulse Ox 37.1 C 74 16 105/60 92 03/16/17 11:29 03/16/17 11:29 03/16/17 11:29 03/16/17 11:29 03/16/17 11:29 Microbiology 03/14/17 10:14 Gram Stain - Final Breast - Eswab Laboratory Results 03/14/17 05:35 03/14/17 05:35 03/15/17 03/16/17 03/17/17 05:59 05:59 05:59 Intake Total 1450 Balance 1450 - Physical Exam General Appearance: alert, no apparent distress Respiratory: lungs clear Cardiac/Chest: regular rate, rhythm Extremities: No swelling Abdomen: normal bowel sounds, non-tender, soft, No distended Skin: No erythema (right breast: no erythema noted at present. induration present around wound vac extending in superior direction. mild tender. warmth appreciated. ) - Time Spent With Patient Time Spent with Patient: greater than 35 minutes Time Spent with Patient: Greater than 35 minutes spent on this patients care, greater than 50% of time spent counseling, educating, and coordinating care regarding the above mentioned plan. ICD10 Worksheet Patient Problems: Problems Problem Status Onset Cellulitis Acute
--- NOTE | 2017-03-16 11:57 | PDIAF ---
- Diagnosis Diagnosis: Recurrent right breast hematoma/abscess Code Status: Full Code - Medication Management Discharge Medications: Medications to Continue on Transfer Atenolol [Tenormin 50 mg (RX)] 25 mg PO DAILY06 01/15/14 [Last Taken 03/13/17] CETIRIZINE HCL [ZYRTEC] 10 mg PO DAILY06 01/15/14 [Last Taken 02/28/17] Fluticasone Nasal [Flonase Nasal [place] (RX)] 1 sprays NASAL DAILY PRN 01/15/14 [ Last Taken 02/28/17] Losartan Potassium [Cozaar] 100 mg PO DAILY06 01/15/14 [Last Taken 03/13/17] Montelukast Sodium [Singulair] 10 mg PO DAILY06 01/15/14 [Last Taken 03/13/17] Albuterol [Proventil Inhaler HFA (*)] 1 - 2 puffs IH Q4H PRN 03/13/17 [Last Taken Unknown] Cholecalciferol Vit D3 [Vitamin D3 (*)] 2,000 units PO DAILY 03/13/17 [Last Taken 03/13/17] Esomeprazole Mag Trihydrate [Nexium] 40 mg PO DAILY 03/13/17 [Last Taken ] Fluticasone Hfa 220 Mcg [Flovent 220 MCG Hfa MDI (*)] 1 puffs IH BID PRN [Last Taken Unknown] Herbals/Supplements -Info Only 1 ea PO DAILY 03/13/17 [Last Taken 03/13/17] metFORMIN HCL [Metformin HCl ER] 500 mg PO DAILY 03/13/17 [Last Taken 03/13/17] Residential Antibiotics: invanz Ig IV dailimandeep Glove Brusher Antibiotic Stop Date: 03/27/17 Discharge Medications: Refer to the Discharge Home Medication list for PRN reason. PICC Care - Routine: Yes - Orders Isolation Type: Contact Isolation - Labs/Radiology CBC w/diff Date: 03/25/17 CMP Date: 03/25/17 Call or Fax Lab and Imaging Results to: to Dr. Casa Pollard-[phone] - Follow Up Care Current Providers and Referrals: Patient,NotPresent [Primary Care Provider] - 03/27/17 1:30 pm (f/u with Dr. Pollard (Infectious diseases) on 03/27/17 at 1:30pm. Check in time is at : 1:10pm. Thanks. )
[2017-03-16] MEDS: ACETAMINOPHEN 325 MG TAB PO PRN (14:11)
[2017-03-16] MEDS: HYDROCODONE/APAP 5/325 TAB PO PRN (22:11)
[2017-03-17] MEDS: ACETAMINOPHEN 325 MG TAB PO PRN ×2 (05:07→17:25)
[2017-03-17] MEDS: MONTELUKAST SODIUM 10 MG TAB PO SCH (05:07)
[2017-03-17] MEDS: LOSARTAN POTASSIUM 50 MG TAB PO SCH (05:08)
[2017-03-17] MEDS: ATENOLOL 50 MG TAB PO SCH (05:08)
[2017-03-17 05:20] LABS: PLATELET COUNT 396 10^3/uL (150-400)
--- NOTE | 2017-03-17 07:51 | SOAPPROG ---
SOAP Progress Note Assessment/Plan: Assessment: Mastitis s/p Incision and drainage Continue Vashe solution veraflo Will likely discharge tomorrow with a standard dressing Approving SNAP vac through outpatient wound healing center Will continue oxygen at home. She already has this set up S: Feeling much improved today O: General: Pleasant, well-nourished and well-groomed woman sitting up in bed HENT: Normocephalic, no gross hearing deficits, mucous membranes moist, pupils equal and round, no scleral icterus Lungs: No increased work of breathing Breast: No erythema and induration is much improved MSK: normal nails Psych: Mood and affect normal Neuro: Grossly intact Plan: 03/16/17 11:32 03/17/17 07:49 Objective: Vital Signs Temp Pulse Resp BP Pulse Ox 36.9 C 83 16 117/62 94 03/17/17 04:00 03/17/17 04:00 03/17/17 04:00 03/17/17 04:00 03/17/17 04:00 Microbiology 03/14/17 10:14 Gram Stain - Final Breast - Eswab Laboratory Results 03/17/17 05:10 03/17/17 05:10 03/16/17 03/17/17 03/18/17 05:59 05:59 05:59 Intake Total 300 Balance 300 ICD10 Worksheet Patient Problems: Problems Problem Status Onset Cellulitis Acute
[2017-03-17] MEDS: CETIRIZINE 10 MG TAB PO SCH (09:43)
[2017-03-17] MEDS: diphenhydrAMINE 25 MG CAP PO PRN (09:43)
[2017-03-17] MEDS: metFORMIN SR 500 MG TAB PO SCH (09:43)
[2017-03-17] MEDS: PANTOPRAZOLE SODIUM 40 MG TAB PO SCH (09:43)
[2017-03-17] MEDS: ERTAPENEM 1 GM VIAL IVP SCH (10:42)
--- NOTE | 2017-03-17 11:21 | PCMIDPN ---
Assessment/Plan: Assessment/Plan: 1. Right breast infected hematoma/abscess: - Cx with ESBL klebsiella. -currenlty on invanz therapy. continue until 03/27/17 - wound vac on with resolution of erythema. -induration present - labs stable. -interagency done. f/u in office on 03/27/17. - care coordinated with RN and case management. - picc line in place - blood cx from 03/03 ngtd - plan of care reviewed in detail with patient, daughter at bedside. - care coordinated with surgery. med invanz 1g daily- 03/13/17 Subjective: afebrile. feels well. no redness on right breast. wound vac in place. denies sob , abd pain. had 1 loose stool yesterday and today. no abd cramping. Objective: Vital Signs Temp Pulse Resp BP Pulse Ox 37.0 C 83 16 123/79 H 90 L 03/17/17 07:55 03/17/17 07:55 03/17/17 07:55 03/17/17 07:55 03/17/17 07:55 Microbiology 03/14/17 10:14 Gram Stain - Final Breast - Eswab Laboratory Results 03/17/17 05:10 03/17/17 05:10 03/16/17 03/17/17 03/18/17 05:59 05:59 05:59 Intake Total 300 Balance 300 - Physical Exam General Appearance: alert, no apparent distress Respiratory: lungs clear Cardiac/Chest: regular rate, rhythm Skin: No erythema (right breast: no redness. indurated above wound vac. mild discomfort. ) ICD10 Worksheet Patient Problems: Problems Problem Status Onset Cellulitis Acute
--- NOTE | 2017-03-17 13:35 | ASMTCMCOM ---
CM Note CM Note Notes: Chart reviewed. Met with patient to review discharge plan of care. She will go to her daughter's home initially. She will go to the outpatient would clinic and have a SNAP wound vac placed after discharge. She will come to the infusion center here at the hospital for IV antibiotics as per orders. She will have no other needs at this time. CM will continue to follow. Date Signed: 03/17/2017 01:35 PM Electronically Signed By:Beth Benavides RN
[2017-03-17] MEDS: HYDROCODONE/APAP 5/325 TAB PO PRN (21:34)
[2017-03-18] MEDS: MONTELUKAST SODIUM 10 MG TAB PO SCH (05:31)
[2017-03-18] MEDS: ATENOLOL 50 MG TAB PO SCH (05:32)
[2017-03-18] MEDS: LOSARTAN POTASSIUM 50 MG TAB PO SCH (05:32)
[2017-03-18 05:36] VITALS: RESP 16
[2017-03-18 07:45] VITALS: BP 113/69; PULSE 71; TEMP 98.7; O2SAT 95
[2017-03-18] MEDS: CETIRIZINE 10 MG TAB PO SCH (08:44)
[2017-03-18] MEDS: metFORMIN SR 500 MG TAB PO SCH (08:44)
[2017-03-18] MEDS: PANTOPRAZOLE SODIUM 40 MG TAB PO SCH (08:44)
[2017-03-18] MEDS: diphenhydrAMINE 25 MG CAP PO PRN (08:44)
--- NOTE | 2017-03-18 08:51 | SOAPPROG ---
SOAP Progress Note Assessment/Plan: Assessment: Mastitis s/p Incision and drainage Discontinue Vashe solution veraflo Discharge today Pack with hydrofera blue transfer Follow up wound healing center Dr. Pollard and Dr. Arango Approving SNAP vac through outpatient wound healing center Will continue oxygen at home. She already has this set up S: Feeling much improved today O: General: Pleasant, well-nourished and well-groomed woman sitting up in bed HENT: Normocephalic, no gross hearing deficits, mucous membranes moist, pupils equal and round, no scleral icterus Lungs: No increased work of breathing Breast: No erythema and induration is much improved. Base of wound is clean MSK: normal nails Psych: Mood and affect normal Neuro: Grossly intact Plan: 03/16/17 11:32 03/17/17 07:49 03/18/17 08:49 Objective: Vital Signs Temp Pulse Resp BP Pulse Ox 37.1 C 71 16 113/69 95 03/18/17 07:43 03/18/17 07:43 03/18/17 07:43 03/18/17 07:43 03/18/17 07:43 Microbiology 03/14/17 10:14 Gram Stain - Final Breast - Eswab Laboratory Results 03/17/17 05:10 03/17/17 05:10 03/17/17 03/18/17 03/19/17 05:59 05:59 05:59 Intake Total 300 1600 Balance 300 1600 ICD10 Worksheet Patient Problems: Problems Problem Status Onset Cellulitis Acute
--- NOTE | 2017-03-18 08:54 | PDHOMEO2F ---
Home Oxygen Face to Face Home Orders: I certify that a physician or a nurse practitioner or physician's assistant community manager has had a wbwl-cj-cfyc encounter with this patient on the date of this order due to the diagnosis listed, which relates to the primary reason the patient requires home oxygen. Alternative treatments have been tried, or considered, and deemed ineffective. It is anticipated that supplemental oxygen will result in improvement with treatment. Home oxygen qualifying diagnosis: respiratory insufficiency SpO2 on room air (%): 84 Frequency of home oxygen needed: continuous Home oxygen liters per minute: 2 Home oxygen delivery device: nasal cannula Concentrator: Yes E-tanks for mobility and back up: Yes If ordering portable O2, is the patient mobile in the home?: Yes I certify that, based on these findings, the home oxygen is medically necessary for this patient for the following length of time. Length of time home oxygen needed: 1 month (already has oxygen set up at home)
[2017-03-18] MEDS: ERTAPENEM 1 GM VIAL IVP SCH (09:55)
[2017-03-18] MEDS: ACETAMINOPHEN 325 MG TAB PO PRN (10:54)
--- NOTE | 2017-03-19 16:28 | ASDISCHSUM ---
Discharge Information Plan Status:Home with DME or Oxygen Medically Cleared to Leave:03/17/2017 Discharge Date:03/18/2017 11:20 AM CM D/C Disposition:Home, Routine, Self-Care ADT D/C Disposition:Home, Routine, Self-Care Projected Discharge Date:03/18/2017 11:00 AM Transportation at D/C: Discharge Delay Reason: Follow-Up Date:03/18/2017 11:00 AM Discharge Slot: Final Diagnosis: Placement Information Referral Type:*Home Health Care Services Referral ID:[id number] Provider Name: Address 1: Phone Number: Address 2: Fax Number: City: Selection Factors: State: Referral Type:Home Infusion Referral ID:[id number] Provider Name: Address 1: Phone Number: Address 2: Fax Number: City: Selection Factors: State: Patient Contact Information Contact Name:NGOC Relationship:Daughter Address: City: Alternate Phone: [facility] Code: Email: Financial Information Financial Class: Primary Plan Desc:MEDICARE INPATIENT Primary Plan Number:[id number] Secondary Plan Desc:[employer]/MDR SUPPLEMENT Secondary Plan Number:[id number] Assessment Information BC CM Progress Note CM Note CM Note Notes: Spoke w/NESSA pt went to surgery today for drainage of wound, had drain placed. Unclear if will need IV abx, CM w/f. Date Signed: 03/14/2017 03:14 PM Electronically Signed By:Jade Vergara RN [facility] CM Progress Note CM Note CM Note Notes: Spoke w/pt, will likely need home IV infusion. CM faxed [employer] and pt would like [facility] for homecare, Gissel at [facility] notified. DC Plan: home care + Home infusion? Date Signed: 03/15/2017 09:46 AM Electronically Signed By:Jade Vergara RN [facility] CM Progress Note CM Note CM Note Notes: Received call from Radha at [facility], pt unfortunately in the "donught hole" for infusion coverage, so she would have to pay $993.00 per week for IV abx. Pt notified and would prefer to do outpt infusion if necessary. DC Plan: [facility] (NESSA) Date Signed: 03/15/2017 04:15 PM Electronically Signed By:Jade Vergara RN [facility] GRIS Progress Note CM Note GRIS Note Notes: Chart reviewed. Met with patient to review discharge plan of care. She will go to her daughter's home initially. She will go to the outpatient would clinic and have a SNAP wound vac placed after discharge. She will come to the infusion center here at the hospital for IV antibiotics as per orders. She will have no other needs at this time. CM will continue to follow. Date Signed: 03/17/2017 01:35 PM Electronically Signed By:Beth Benavides RN Case Management Discharge Plan Note Case Management Discharge Discharge Order Complete? Answers: Yes Patient to Obtain Answers: Independently Medications Transportation Arranged Answers: Family/Friends Family Notified Answers: Yes Notes: Patient's daughterMartina is taking her home Discharge Comments Notes: Patient was given a copy of Dr. Berger's order for O2 at home. The service is already in place. Patient to return to the infusion center to finish her antibiotics for the next 9 days. Date Signed: 03/18/2017 10:21 AM Electronically Signed By:Scarlett Domingo LCSW Intervention Information Intervention Type:*Incorrect Registration Date of Service:03/14/2017 09:10 AM Patient Type:Inpatient Staff Member:NESSA Ashby Courtney Hours: Discipline: Severity: Comment:
== END 2017-03-18 11:20 | disposition home or self-care (01) | DRG 585 ==
LOC: EEVIPCON → F3E 15:47 → INTOOBSV 15:47 → OBSVTOIN 03-14 14:20
PROVIDERS: ADMIT Surgery; ATTEND Surgery
PROC: 0H9T0ZX Drainage of Right Breast, Open Approach, Diagnostic (ICD-10-PCS; principal; 2017-03-14 09:45)
PROC: 02HV33Z Insertion of Infusion Device into Superior Vena Cava, Percutaneous Approach (ICD-10-PCS; 2017-03-15)
DX: N61.0 Mastitis without abscess (principal); A49.8 Other bacterial infections of unspecified site; Z85.3 Personal history of malignant neoplasm of breast; I10 Essential (primary) hypertension; R73.03 Prediabetes; Z86.718 Personal history of other venous thrombosis and embolism; Z86.711 Personal history of pulmonary embolism; Z88.1 Allergy status to other antibiotic agents
CPT/HCPCS: C1751; G0378; G0379; J1100; J1335; J2001; J2250; J2405; J2704; J3010

== ENCOUNTER 2017-04-18 09:19 | Inpatient (IN) | payer OTHER, MEDICARE ==
--- NOTE | 2017-04-18 09:56 | EDPHY ---
H & P Time Seen by Provider: 04/18/17 09:41 HPI/ROS: CHIEF COMPLAINT: Breast infection HISTORY OF PRESENT ILLNESS: The patient is a 72-year-old female who presents to the emergency department with right breast infection. Patient has had an ongoing issue with a right breast infection. She was admitted to the hospital on 03/12/2017 for 3 weeks. She was diagnosed with a Klebsiella infection. This required prolonged treatment with ertapenem. She had her breast drain by Dr. Burden all other and then a lumpectomy performed by Dr. Arango. She has good follow-up by Dr. Casa Pollard from Infectious Disease. She went into an appointment today and saw Dr. Pollard. He sent her to the emergency department for admission and further care. The patient states that she has had increased redness around her breast since yesterday. She has also felt "off. "She feels similar when she was previously admitted. She denies fevers or chills at home but does have a fever today. REVIEW OF SYSTEMS: My complete review of systems is negative except as mentioned in the HPI. Past Medical/Surgical History: Includes asthma, prediabetes, breast cancer, ESBL PSH: includes appendectomy, lumpectomy, tonsillectomy Social history: Patient does not smoke Smoking Status: Never smoked Physical Exam: Vitals noted. 39.1, 106 GENERAL: Well-appearing, in no acute distress, alert. HEENT: Eyes normal to inspection, normal pharynx, no signs of dehydration. NECK: [No thyromegaly, no lymphadenopathy, supple. RESPIRATORY: Clear to auscultation bilaterally, no rales, rhonchi or wheezing. CVS: Regular rate and rhythm, no rubs, murmurs, or gallops. Chest: Patient has an erythematous right breast. Dressing is in place. It is warm to touch. ABDOMEN: Soft, nontender, nondistended, no organomegaly. BACK: Normal to inspection, no CVA tenderness. SKIN: Normal color, no rash, warm, dry. No pallor. EXTREMITIES: No pedal edema, no calf tenderness, no Homans sign or cords, no joint swelling. NEURO/PSYCH: Alert and oriented x3, normal mood and affect, normal motor sensory exam. No obvious cranial nerve deficit. Constitutional: Initial Vital Signs Temperature (C) 39.1 C H 04/18/17 09:31 Heart Rate 106 H 04/18/17 09:31 Respiratory Rate 22 H 04/18/17 09:31 Blood Pressure 141/94 H 04/18/17 09:31 O2 Sat (%) 95 04/18/17 09:31 O2 Delivery Mode Room Air Allergies/Adverse Reactions: Penicillins Allergy (Severe, Verified 03/13/17 16:34) THROAT SWELLING meperidine HCl [From Demerol] Allergy (Intermediate, Verified 03/11/17 21:27) TACHYCARDIC levofloxacin [From Levaquin] Allergy (Mild, Verified 03/11/17 21:27) "COULDNT STAND UP - NO STRENGTH" oxycodone [From Percocet] Allergy (Mild, Verified 03/13/17 16:34) Other-Enter Comments epinephrine [Epinephrine] Allergy (Unknown, Verified 03/11/17 21:27) TACHYCARDIC chloramphenicol [From Chloromycetin] Allergy (Verified 04/18/17 09:31) Home Medications: Medication Instructions Recorded Atenolol [Tenormin 50 mg (*)] 25 mg PO DAILY06 01/15/14 CETIRIZINE HCL [ZYRTEC] 10 mg PO DAILY06 01/15/14 Fluticasone Nasal [Flonase Nasal 1 sprays NASAL DAILY PRN 01/15/14 [place]] Losartan Potassium [Cozaar] 100 mg PO DAILY06 01/15/14 Montelukast Sodium [Singulair 10 10 mg PO DAILY06 01/15/14 mg (*)] Albuterol [Proventil Inhaler HFA 1 - 2 puffs IH Q4H PRN 03/13/17 (*)] Cholecalciferol Vit D3 [Vitamin D3 2,000 units PO DAILY 03/13/17 (*)] Esomeprazole Mag Trihydrate 40 mg PO DAILY 03/13/17 [Nexium] Fluticasone Hfa 220 Mcg [Flovent 1 puffs IH BID PRN 03/13/17 220 MCG Hfa MDI (*)] Herbals/Supplements -Info Only 1 ea PO DAILY 03/13/17 metFORMIN HCL [Metformin HCl ER] 500 mg PO DAILY 03/13/17 Aspirin [Aspirin 325 mg (*)] 325 mg PO DAILY 03/24/17 Medical Decision Making ED Course/Re-evaluation: Prior to the patient's arrival I discussed case with Dr. Pollard. He states the patient had purulent drainage from her breast. This was cultured by him. He recommends the patient have blood cultures drawn and be started on ertapenem. He also recommends admission. I discussed this plan with the patient. I answered all her questions. IV was placed in blood cultures were obtained. Patient was given ertapenem 1 [place] [address]. The chemistry panel is notable for a mildly elevated anion gap. The patient's lactic acid is 2.1. Using the sepsis protocol, sepsis was declared. Repeat lactic acid was ordered. Patient was given a full volume placement of normal saline 30 milliliters/kilogram. Vancomycin 1 g IV was ordered. Discussed case with hospital service. Dr. Ashby will admit. 1045: Patient is doing well. No new complaints. 1055: I discussed case with Dr. Arango who was in the emergency department to evaluate the patient. Ultrasound was added. Differential Diagnosis: My differential includes but is not limited to cellulitis, abscess, malignancy, uremia, sepsis - Data Points Laboratory Results: Laboratory Results 04/18/17 09:50 04/18/17 09:50 04/18/17 04/18/17 04/18/17 09:50 09:50 09:50 WBC RBC Hgb Hct MCV MCH MCHC RDW Plt Count MPV Neut % (Auto) Lymph % (Auto) Davidson % (Auto) Eos % (Auto) Baso % (Auto) Nucleat RBC Rel Count Absolute Neuts (auto) Absolute Lymphs (auto) Absolute Monos (auto) Absolute Eos (auto) Absolute Basos (auto) Absolute Nucleated RBC Immature Gran % Immature Gran # PT 13.3 SEC SEC (12.0-15.0) INR 0.99 (0.83-1.16) APTT 29.4 SEC SEC (23.0-38.0) VBG Lactic Acid 2.1 mmol/L mmol/L (0.7-2.1) Sodium 138 mEq/L mEq/L (135-145) Potassium 4.5 mEq/L mEq/L (3.5-5.2) Chloride 98 mEq/L mEq/L (97-110) Carbon Dioxide 22 mEq/l mEq/l (22-31) Anion Gap 18 mEq/L H mEq/L (8-16) BUN 7 mg/dL mg/dL (7-23) Creatinine 0.7 mg/dL mg/dL (0.6-1.0) Estimated GFR > 60 Glucose 112 mg/dL H mg/dL (70-100) Calcium 9.5 mg/dL mg/dL (8.5-10.4) Total Bilirubin 0.6 mg/dL mg/dL (0.1-1.4) 04/18/17 09:50 WBC 17.54 10^3/uL H 10^3/uL (3.80-9.50) RBC 4.64 10^6/uL 10^6/uL (4.18-5.33) Hgb 13.7 g/dL g/dL (12.6-16.3) Hct 40.8 % % (38.0-47.0) MCV 87.9 fL fL (81.5-99.8) MCH 29.5 pg pg (27.9-34.1) MCHC 33.6 g/dL g/dL (32.4-36.7) RDW 13.8 % % (11.5-15.2) Plt Count 373 10^3/uL 10^3/uL (150-400) MPV 8.4 fL L fL (8.7-11.7) Neut % (Auto) 74.7 % H % (39.3-74.2) Lymph % (Auto) 13.2 % L % (15.0-45.0) Davidson % (Auto) 9.9 % % (4.5-13.0) Eos % (Auto) 1.4 % % (0.6-7.6) Baso % (Auto) 0.3 % % (0.3-1.7) Nucleat RBC Rel Count 0.0 % % (0.0-0.2) Absolute Neuts (auto) 13.11 10^3/uL H 10^3/uL (1.70-6.50) Absolute Lymphs (auto) 2.32 10^3/uL 10^3/uL (1.00-3.00) Absolute Monos (auto) 1.73 10^3/uL H 10^3/uL (0.30-0.80) Absolute Eos (auto) 0.25 10^3/uL 10^3/uL (0.03-0.40) Absolute Basos (auto) 0.05 10^3/uL 10^3/uL (0.02-0.10) Absolute Nucleated RBC 0.00 10^3/uL 10^3/uL (0-0.01) Immature Gran % 0.5 % % (0.0-1.1) Immature Gran # 0.08 10^3/uL 10^3/uL (0.00-0.10) PT INR APTT VBG Lactic Acid Sodium Potassium Chloride Carbon Dioxide Anion Gap BUN Creatinine Estimated GFR Glucose Calcium Total Bilirubin Medications Given: Vancomycin HCl 1 gm/ Dextrose 250 mls @ 250 mls/hr IV EDNOW ONE Stop: 04/18/17 11:29 Last Admin: 04/18/17 10:37 Dose: 250 mls Discontinued Medications Diphenhydramine HCl (Benadryl) 25 mg PO EDNOW ONE Stop: 04/18/17 10:16 Last Admin: 04/18/17 10:17 Dose: 25 mg Ertapenem (Invanz) 1 gm IV EDNOW ONE PRN Reason: Protocol Stop: 04/18/17 09:59 Last Admin: 04/18/17 10:14 Dose: 1 gm Sodium Chloride (Ns) 1,000 mls @ 0 mls/hr IV ONCE ONE PRN Reason: Wide Open Stop: 04/18/17 09:59 Last Admin: 04/18/17 10:08 Dose: 1,000 mls Sodium Chloride (Ns) 2,800 mls @ 5,600 mls/hr 30 ml/kg infuse over 30 min ( 2800 ml) IV EDNOW ONE PRN Reason: Protocol Stop: 04/18/17 10:50 Last Admin: 04/18/17 10:27 Dose: 1,800 mls Ibuprofen (Motrin) 600 mg PO EDNOW ONE Stop: 04/18/17 09:58 Last Admin: 04/18/17 10:04 Dose: 600 mg Departure - Departure Disposition: [facility] Inpatient Acute Clinical Impression: Cellulitis of right breast, Severe sepsis Cellulitis Qualifiers: Site of cellulitis: other site Qualified Code(s): L03.818 - Cellulitis of other sites Condition: Good
[2017-04-18] MEDS ORDERED: IBUPROFEN 600 MG TAB PO ONE (09:57)
[2017-04-18] MEDS ORDERED: NS 1,000 ML IV ONE (09:58)
[2017-04-18] MEDS ORDERED: ERTAPENEM 1 GM VIAL IV ONE (09:58)
[2017-04-18 10:10] LABS: PLATELET COUNT 373 10^3/uL (150-400)
[2017-04-18 10:15] LABS: INR 0.99 (0.83-1.16); PROTIME(PATIENT) 13.3 SEC (12.0-15.0)
[2017-04-18] MEDS ORDERED: diphenhydrAMINE 25 MG CAP PO ONE (10:15)
[2017-04-18] MEDS ORDERED: VANCOMYCIN HCL/NORMAL SALINE 250 ML IV ONE (10:21)
[2017-04-18] MEDS ORDERED: NS 2,800 ML IV ONE (10:21)
[2017-04-18] MEDS ORDERED: VANCOMYCIN 1 GM in D5W 250 ML IV ONE (10:30)
--- NOTE | 2017-04-18 11:44 | PCMIDPN ---
Assessment/Plan: Assessment/Plan: * Recurrent right breast infection status post course of ertapenem for prior abscess due to ESBL producing Klebsiella pneumoniae and Finegoldia: Significant breast cellulitis with purulent drainage from wound site. Patient also with fever and rigors concerning for possible concomitant bacteremia. Gram stain of purulent material shows gram-positive cocci in chains consistent with streptococci or possibly Finegoldia. Suspect will require repeat incision and drainage. Have asked Dr. Arango to see for surgical assessment. Will begin vancomycin and ertapenem pending additional cultures. * Sepsis: See above findings. Lactic acid has decreased with IV fluid. 04/18/17 11:37 04/18/17 11:46 Subjective: Patient seen earlier today at wound healing center when wound VAC was changed. Notes development of increasing tenderness in breast beginning on Saturday. Yesterday noted onset of right breast erythema and then subsequently developed rigors. She felt feverish overnight. Previously completed 3 week course of ertapenem for right breast abscess/skin and soft tissue infection with culture showing growth of ESBL producing Klebsiella and Finegoldia. Patient also notes increasing brownish drainage through wound VAC. Overall does not feel well and notes decreased appetite. Based on findings at [facility], advised patient go to emergency department for rapid evaluation and hospital admission with probable need for incision and drainage. Cultures were obtained in the Wound Healing Center from the purulent drainage Objective: Vital Signs Temp Pulse Resp BP Pulse Ox 37.5 C 88 16 117/66 96 04/18/17 11:21 04/18/17 11:21 04/18/17 11:21 04/18/17 11:21 04/18/17 11:21 - Physical Exam General Appearance: alert, other (Mildly ill-appearing) EENT: dry mucous membranes, No scleral icterus, No thrush Respiratory: lungs clear, No respiratory distress Cardiac/Chest: tachycardia, other (Right breast with erythema with well-defined sharp margins over almost entirety of breast; induration present superior to wound bed; copious yelllow purulent drainage from wound bed which can be easily expressed when pressure applied to indurated area ) ICD10 Worksheet Patient Problems: Problems Problem Status Onset Cellulitis Acute Cellulitis of right breast Acute Severe sepsis Acute
[2017-04-18] MEDS ORDERED: diphenhydrAMINE 25 MG CAP PO PRN (11:49)
[2017-04-18] MEDS ORDERED: ONDANSETRON DISINTEGRATING 4 MG TAB PO PRN (13:48)
[2017-04-18] MEDS ORDERED: ONDANSETRON 4 MG/2 ML VIAL IVP PRN (13:48)
[2017-04-18] MEDS ORDERED: ALBUTEROL 60 PUFFS/8 GM MDI IH PRN (14:00)
[2017-04-18] MEDS ORDERED: FLUTICASONE NASAL 120 SPRAYS/16 GM MDI NS PRN (14:00)
[2017-04-18] MEDS ORDERED: FLUTICASONE HFA 220 MCG MDI IH PRN (14:00)
[2017-04-18] MEDS ORDERED: ACETAMINOPHEN 325 MG TAB PO SCH (14:00)
[2017-04-18] MEDS ORDERED: NS 1,000 ML IV SCH (14:00)
--- NOTE | 2017-04-18 14:32 | GHP ---
[f rep st] HISTORY AND PHYSICAL DATE OF ADMISSION: 04/18/2017 HISTORY OF PRESENT ILLNESS: The patient is a pleasant 72-year-old female with history of breast canc er of the right breast as well as recent difficulties left breast abscess. She was admitted here to the hospital from the through the . At that point in time, her micro grew out Klebsiella pne umoniae with ESBL as well as Finegoldia. She was treated with 3 weeks of ertapenem as well as a woun d VAC and is followed up in the [facility] Center. She was in the wound center today and erythema wa s noted on her breast. The wound VAC was removed and there was a foul odor and a fair amount of puru lence that drained. She has had some rigors over the last couple of days but no gregoria fever. She ramirez s also had malaise. She has not had nausea, vomiting or shortness of breath. She did have an excision of a mass in January from her breast that was the result of a long-standing hematoma and that pathology returned benign. She has not had weight loss. REVIEW OF SYSTEMS: Complete 10-point review of systems conducted and negative except as noted in the HPI. PAST MEDICAL HISTORY: 1. Breast cancer in 2008. She had 2 tumors in the same breast. She received a lumpectomy and radia tion. 2. Recent struggles with breast abscess. 3. Pre-diabetes. 4. History of pulmonary embolism after child . 5. Hypertension. 6. 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 7. Lumpectomy. 8. Shoulder surgery. 9. . 10. Arthroscopic knee surgery. 11. Appendectomy. 12. Tonsillectomy. HOME MEDICATIONS: Albuterol, aspirin, atenolol, cetirizine, vitamin D3, esomeprazole, Flovent, Flona se, losartan, metformin 500 daily, montelukast. ALLERGIES: Penicillins, meperidine, levofloxacin, oxycodone, epinephrine, chloramphenicol. 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 She has rare alcohol. No tobacco. 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 FAMILY HISTORY: Reviewed and unremarkable. PHYSICAL EXAMINATION: VITAL SIGNS: Temperature 39.1 at 9:30 a.m. this morning, blood pressure 141/9 4, pulse 106 breathing 20 times a minute, 95% on room air. Her pulse has only subsequently come down to 90 as she has defervesced. GENERAL: No acute distress. HEENT: Sclerae anicteric. Oropharynx clear. Mucous membranes moist. NECK: Supple. No lymphadenopathy or JVD. LUNGS: Clear to auscult ation bilaterally. HEART: S1, S2. Not tachycardic. BREASTS: Her left breast shows an area about the size of 3 x 5 inches that is lobulated in shape of cellulitis of her breast. She has purulence d raining from the 2 cm incision without foul odor. ABDOMEN: Soft, nontender, nondistended. LOWER EX TREMITIES: No edema. Calves nontender. SKIN: Without rash. NEUROLOGIC: Nonfocal. LABS: Initial lactate was 2.1 and is now 1.0. White count elevated at 17.5, a month ago it was 7.6, hematocrit 40, platelets 373,000. Coags normal. Sodium 138, potassium 4.5, chloride 98, bicarb 22, BUN 7, creatinine 0.7, glucose 112. There is no imaging. I have discussed the case with Dr. Casa flores. ASSESSMENT/PLAN: A 72-year-old female with recurrent breast infection. 1. Breast infection. She had ESBL and Finegoldia. Certainly we need to consider those as pathogens as well as possible Staph and Methicillin-resistant staph aureus. Vancomycin and ertapenem have bee n started. ID will see her and Dr. Arango will see her from surgery. It is not clear that surgical m anagement is required at this time. We will hold off on feeding her until we know. 2. Sepsis. The patient had mild sepsis on presentation. We will follow. 3. History of breast cancer. This is noted. Pathology has been benign thus far. 4. Multiple drug allergies. The patient is on vancomycin and ertapenem which she has noted to horacio ated. She takes Benadryl prior to ertapenem. 5. Pain. Scheduled Tylenol. She did not tolerate pain medicines all that well so we will hold off on further pain medicines. 6. Prophylaxis. Pharmacologic prophylaxis indicated. Start low-molecular heparin. Given possibili ty for surgery I have written for it to start at 5 p.m. Saturday the . 7. Pre-diabetes. Blood sugar was okay now. We are going to hold her metformin. DISPOSITION: Inpatient status. /[id number]/MODL
--- NOTE | 2017-04-18 15:47 | PDMN ---
Medical Necessity Medical necessity: est los>2mn for breast infection and mild sepsis, w/elevated wbc, fever, and tachycardia; admit for IV abx, ID and surgical consults; comorbid pre-diabetes, , htn, and hx breast cancer, and recent breast abscess ; per order and H&P 04/18/17
[2017-04-18] MEDS: ACETAMINOPHEN 500 MG TAB PO SCH ×2 (15:56→22:54)
[2017-04-18] MEDS: ATENOLOL 25 MG TAB PO SCH (21:42)
[2017-04-18] MEDS: LOSARTAN POTASSIUM 50 MG TAB PO SCH (21:42)
[2017-04-18] MEDS: PANTOPRAZOLE SODIUM 40 MG TAB PO SCH (21:43)
[2017-04-18] MEDS: VANCOMYCIN HCL/NORMAL SALINE 250 ML IV SCH (22:54)
[2017-04-19 05:10] LABS: PLATELET COUNT 278 10^3/uL (150-400)
[2017-04-19] MEDS ORDERED: CETIRIZINE HCL 10 MG PO SCH (06:00)
[2017-04-19] MEDS: MONTELUKAST SODIUM 10 MG TAB PO SCH (06:41)
[2017-04-19] MEDS: CETIRIZINE 10 MG TAB PO SCH (06:41)
[2017-04-19] MEDS: LOSARTAN POTASSIUM 50 MG TAB PO SCH (06:41)
[2017-04-19] MEDS: ACETAMINOPHEN 500 MG TAB PO SCH ×3 (07:56→22:59)
[2017-04-19] MEDS: ATENOLOL 25 MG TAB PO SCH (07:57)
[2017-04-19] MEDS: CHOLECALCIFEROL VIT D3 1,000 UNITS TAB PO SCH (07:58)
[2017-04-19] MEDS: PANTOPRAZOLE SODIUM 40 MG TAB PO SCH (07:58)
[2017-04-19] MEDS: diphenhydrAMINE 25 MG CAP PO SCH (08:01)
--- NOTE | 2017-04-19 08:05 | SOAPPROG ---
SOAP Progress Note Assessment/Plan: Assessment: 72 FEMALE WITH BREAST ABSCESS BEING TREATED AT WOUND CENTER NOW WITH FLORID CELLULITIS AND DRAINAGE WITH FEVER AND CHILLS AND ELEVATED WBC PT DESCRIBES INCREASING INDURATION AND PAIN [id number] Plan:START ABX/ MAY NEED I&D/ WILL RECHECK IN AM 04/19/17 08:02 Objective: Vital Signs Temp Pulse Resp BP Pulse Ox 36.9 C 80 16 119/63 95 04/19/17 06:42 04/19/17 07:57 04/19/17 06:42 04/19/17 07:57 04/19/17 06:42 Laboratory Results 04/19/17 04:54 04/19/17 04:54 04/18/17 04/19/17 04/20/17 05:59 05:59 05:59 Intake Total 4980 Balance 4980 PT 13.3 SEC (12.0-15.0) 04/18/17 09:50 INR 0.99 (0.83-1.16) 04/18/17 09:50 ICD10 Worksheet Patient Problems: Problems Problem Status Onset Cellulitis Acute Cellulitis of right breast Acute Severe sepsis Acute
[2017-04-19] MEDS: ERTAPENEM 1 GM VIAL IV SCH ×2 (08:35→09:31)
[2017-04-19] MEDS ORDERED: Herbals/Supplements -Info Only PO SCH (09:00)
[2017-04-19] MEDS ORDERED: NON-FORMULARY NEW DRUG (Esomeprazole Mag Trihydrate [Nexium] 40 MG) PO SCH (09:00)
--- NOTE | 2017-04-19 09:28 | HOSPPROG ---
Hospitalist Progress Note Assessment/Plan: 72 yo F e recurrent breast cellulitis and possible abscess breast infection: worsened overnight despite vanc/erta u/s yesterday w what seems like early abscess (d/w dr james) continue abx probably needs surgical management h/o PE: continue lmwh proph to start today at 5 PM pain: well controlled pre diabetes: metformin on hold blood sugar OK dispo: inpt Subjective: case d/w dr levin. worsening cellulitis and purulent drainage overnight Objective: Vital Signs Temp Pulse Resp BP Pulse Ox 36.9 C 80 16 119/63 95 04/19/17 06:42 04/19/17 07:57 04/19/17 06:42 04/19/17 07:57 04/19/17 06:42 Laboratory Results 04/19/17 04:54 04/19/17 04:54 04/18/17 04/19/17 04/20/17 05:59 05:59 05:59 Intake Total 4980 Balance 4980 PT 13.3 SEC (12.0-15.0) 04/18/17 09:50 INR 0.99 (0.83-1.16) 04/18/17 09:50 - Physical Exam Constitutional: no apparent distress, appears nourished Eyes: PERRL, anicteric sclera Ears, Nose, Mouth, Throat: moist mucous membranes, hearing normal Cardiovascular: regular rate and rhythym, no murmur, rub, or gallop Respiratory: no respiratory distress, no rales or rhonchi Gastrointestinal: normoactive bowel sounds, soft, non-tender abdomen Genitourinary: no bladder fullness, No decker in urethra Skin: other (cellulitis on breast extending laterally. several cc's purulence on dressing) Musculoskeletal: full muscle strength, no muscle tenderness Neurologic: AAOx3 ICD10 Worksheet Patient Problems: Problems Problem Status Onset Cellulitis Acute Cellulitis of right breast Acute Severe sepsis Acute
[2017-04-19] MEDS: HYDROmorphONE/DILAUDID 1 MG/ML INJ IVP PRN ×2 (10:52→18:51)
[2017-04-19] MEDS: VANCOMYCIN HCL/NORMAL SALINE 250 ML IV SCH (11:03)
[2017-04-19] MEDS ORDERED: ALTEPLASE 2 MG VIAL IVP PRN (11:42)
--- NOTE | 2017-04-19 11:44 | PCMIDPN ---
Assessment/Plan: Recurrent R breast abscess and breast/chest wall cellulitis. Wound cx 4+ GAS as well as MRSA 2+ and GNR (suspect ESBL) - suspect primary mediated of disease is group a strep. Developing some superficial bulla on the underside of her breast gives increasing concern for necrotizing infection. Significant leukocytosis on admission significantly improved today. This is my 1st exam but patient and daughter (who is a nurse) report slightly fainter erythema. Patient with rigors at admission now resolved. Blood cultures from 04/18/2017 are no growth today --to the OR today for debridement and wound VAC placement --continue ertapenem, vancomycin and will add clindamycin for the [place] affect/ finding of toxin release from group a strep treatment --contact precautions for ESBL and MRSA --education about antibiotic risks including C diff Medication Vancomycin 1 g IV q.12 Ertapenem 1 g IV Q 24 Time 35 min greater than 50% time spent with education counseling patient and her daughter and coordination of care with hospitalist. Subjective: Patient was persistent erythema of the right breast and induration. No diarrhea , myalgia/feeling of illness improved as compared to yesterday Objective: Vital Signs Temp Pulse Resp BP Pulse Ox 37 C 75 16 116/69 90 L 04/19/17 09:30 04/19/17 09:30 04/19/17 09:30 04/19/17 09:30 04/19/17 09:30 Laboratory Results 04/19/17 04:54 04/19/17 04:54 04/18/17 04/19/17 04/20/17 05:59 05:59 05:59 Intake Total 4980 Balance 4980 - Physical Exam General Appearance: alert, no apparent distress EENT: other (Good dentition), No thrush Respiratory: lungs clear, No accessory muscle use Neck: supple Cardiac/Chest: regular rate, rhythm Extremities: No pedal edema Abdomen: non-tender, soft Skin: erythema (Encompasses entire Right breast with induration surrounding 1-2 cm incision site, no purulence, small blister on the underside of the breast) Neuro/Psych: alert, normal mood/affect, oriented x 3 - Line/s PIV Lines: other (Right hand), No drainage, No erythema ICD10 Worksheet Patient Problems: Problems Problem Status Onset Cellulitis Acute Cellulitis of right breast Acute Severe sepsis Acute
[2017-04-19] MEDS: CLINDAMYCIN 600 MG/DEXTROSE 50 ML IV SCH ×2 (14:07→22:52)
--- NOTE | 2017-04-19 14:33 | PDANEPAE ---
ANE History of Present Illness right breast abscess for I&D ANE Past Medical History - Cardiovascular History Hx Hypertension: Yes Hx Arrhythmias: No Hx Chest Pain: No Hx Coronary Artery / Peripheral Vascular Disease: No Hx CHF / Valvular Disease: No Hx Palpitations: No Cardiovascular History Comment: AORTIC REGURITATION. HX PVC'S,SINUS TACH - Pulmonary History Hx COPD: No Hx Asthma/Reactive Airway Disease: Yes Hx Oxygen in Use at Home: No Hx Sleep Apnea: No Sleep Apnea Screening Result - Last Documented: Negative Pulmonary History Comment: ASTHMA TRIGGERS VIRUS. PE 1982. probable sleep apnea, requiring O2 recently - Neurologic History Hx Cerebrovascular Accident: No Hx Seizures: No Hx Dementia: No - Endocrine History Hx Diabetes: Yes Hypothyroid: No Hyperthyroid: No Obesity: yes Endocrine History Comment: NIDDM - Renal History Hx Renal Disorders: No - Liver History Hx Hepatic Disorders: No - Neurological & Psychiatric Hx Hx Neurological and Psychiatric Disorders: No - Cancer History Hx Cancer: Yes Cancer History Comment: BREAST POST LYMPHEDEMA - Congenital Disorder History Hx Congenital Disorders: No - GI History GERD: no Hx Gastrointestinal Disorders: Yes Gastrointestinal History Comment: REFLUX - Other Health History Other Health History: RT LEG RELLEX SYMPATHETIC DYSTROPHY. CHRONIC SINUS - Chronic Pain History Chronic Pain: Yes (RT BREAST) - Surgical History Prior Surgeries: RT BREAST LUMPECTOMY 01/29/2017 DEVELOPED POST HEMATOMA. RT EYE VITRECTOMY 04/2014. RT BREAST LUMPECTOMY. RT KNEE SCOPE. RT SHLDR SCOPE. LT ARM ORIF. APPENDECTOMY ANE Review of Systems Review of systems is: negative Review of Systems: - Exercise capacity Exercise capacity: >=4 METS ANE Patient History - Allergies Allergies/Adverse Reactions: Penicillins Allergy (Severe, Verified 03/13/17 16:34) THROAT SWELLING meperidine HCl [From Demerol] Allergy (Intermediate, Verified 03/11/17 21:27) TACHYCARDIC levofloxacin [From Levaquin] Allergy (Mild, Verified 03/11/17 21:27) "COULDNT STAND UP - NO STRENGTH" oxycodone [From Percocet] Allergy (Mild, Verified 03/13/17 16:34) Other-Enter Comments epinephrine [Epinephrine] Allergy (Unknown, Verified 03/11/17 21:27) TACHYCARDIC chloramphenicol [From Chloromycetin] Allergy (Verified 04/18/17 09:31) - Home Medications Home medications: home medication list seen and reviewed Home Medications: Atenolol [Tenormin 50 mg (*)] 25 mg PO DAILY06 01/15/14 [Last Taken 04/17/17] CETIRIZINE HCL [ZYRTEC] 10 mg PO DAILY06 01/15/14 [Last Taken 04/17/17] Fluticasone Nasal [Flonase Nasal [place]] 1 sprays NASAL DAILY PRN 01/15/14 [Last Taken 04/18/17] Losartan Potassium [Cozaar] 100 mg PO DAILY06 01/15/14 [Last Taken 04/17/17] Montelukast Sodium [Singulair 10 mg (*)] 10 mg PO DAILY06 01/15/14 [Last Taken 04/17/17] Albuterol [Proventil Inhaler HFA (*)] 1 - 2 puffs IH Q4H PRN 03/13/17 [Last Taken Unknown] Cholecalciferol Vit D3 [Vitamin D3 (*)] 2,000 units PO DAILY 03/13/17 [Last Taken 04/17/17] Esomeprazole Mag Trihydrate [Nexium] 40 mg PO DAILY 03/13/17 [Last Taken ] Fluticasone Hfa 220 Mcg [Flovent 220 MCG Hfa MDI (*)] 1 puffs IH BID PRN [Last Taken 1 Week Ago ~04/11/17] Herbals/Supplements -Info Only 1 ea PO DAILY 03/13/17 [Last Taken 03/13/17] metFORMIN HCL [Metformin HCl ER] 500 mg PO DAILY 03/13/17 [Last Taken 04/17/17] Aspirin [Aspirin 325 mg (*)] 325 mg PO DAILY 03/24/17 [Last Taken 04/17/17] - NPO status NPO Since - Liquids (Date): 04/18/17 NPO Since - Liquids (Time): 00:00 NPO Since - Solids (Date): 04/18/17 NPO Since - Solids (Time): 00:00 - Anes Hx Anes Hx: no prior problems - Smoking Hx Smoking Status: Never smoked - Family Anes Hx Family Anes Hx: none ANE Labs/Vital Signs - Labs Result Diagrams: 04/19/17 04:54 04/19/17 04:54 - Vital Signs Blood Pressure: 116/68 Heart Rate: 73 Respiratory Rate: 14 O2 Sat (%): 96 Height: 172.72 cm Weight: 95.254 kg ANE Physical Exam - Airway Neck exam: FROM Mallampati Score: Class 2 Mouth exam: normal dental/mouth exam - Pulmonary Pulmonary: no respiratory distress - Cardiovascular Cardiovascular: regular rate and rhythym - ASA Status ASA Status: III ANE Anesthesia Plan Anesthesia Plan: GA w LMA
[2017-04-19] MEDS ORDERED: BUPIVACAINE 0.5% 30 ML SDV ONE (14:37)
[2017-04-19] MEDS ORDERED: MIDAZOLAM 2 MG/2 ML VIAL ONE (14:46)
[2017-04-19] MEDS ORDERED: MIDAZOLAM 2 MG/2 ML VIAL IVP ONE (14:47)
[2017-04-19] MEDS ORDERED: fentaNYL 100 MCG/2 ML INJ ONE ×2 (14:49→16:08)
[2017-04-19] MEDS ORDERED: PROPOFOL 200 MG/20 ML VIAL ONE (14:49)
[2017-04-19] MEDS ORDERED: LIDOCAINE 2% 5 ML SDV ONE (14:50)
[2017-04-19] MEDS ORDERED: DEXAMETHASONE 4 MG/ML VIAL ONE (14:50)
[2017-04-19] MEDS ORDERED: KETOROLAC 30 MG/1 ML SDV ONE (14:50)
[2017-04-19] MEDS ORDERED: ONDANSETRON 4 MG/2 ML VIAL ONE (14:50)
[2017-04-19] MEDS ORDERED: PHENYLEPHRINE HCL 100 MCG/ML SYR ONE (15:02)
[2017-04-19] MEDS ORDERED: THROMBIN (BOVINE) 20,000 UNIT VIAL TP ONE (15:28)
[2017-04-19] MEDS ORDERED: PROMETHAZINE HCL 25 MG/ML INJ IVP PRN (15:45)
[2017-04-19] MEDS ORDERED: OXYCODONE/APAP 5/325 TAB PO PRN (15:45)
[2017-04-19] MEDS ORDERED: HYDROCODONE/APAP 5/325 TAB PO PRN (15:45)
[2017-04-19] MEDS ORDERED: ALBUTEROL 3 ML DEYVIAL IH PRN (15:45)
[2017-04-19] MEDS ORDERED: fentaNYL 100 MCG/2 ML INJ IVP PRN (15:45)
[2017-04-19] MEDS ORDERED: ACETAMINOPHEN 500 MG TAB PO PRN (15:45)
[2017-04-19] MEDS ORDERED: ONDANSETRON 4 MG/2 ML VIAL IVP PRN (15:45)
[2017-04-19] MEDS ORDERED: NALOXONE HCL 0.4 MG/ML INJ IVP PRN (15:45)
[2017-04-19] MEDS ORDERED: HYDROmorphONE/DILAUDID 1 MG/ML INJ IVP PRN (15:45)
[2017-04-19] MEDS ORDERED: METOCLOPRAMIDE 10 MG/2 ML VIAL IVP PRN (15:45)
[2017-04-19] MEDS ORDERED: PHENYLEPHRINE HCL 100 MCG/ML SYR IVP PRN (15:45)
[2017-04-19] MEDS ORDERED: epHEDrine SULFATE 10 MG/ML SYR IVP PRN (15:45)
--- NOTE | 2017-04-19 16:07 | POSTANESTH ---
Post Anesthetic Evaluation Cardiovascular Status: Normal, Stable Respiratory Status: Normal, Stable Level of Consciousness/Mental Status: Can Participate in Eval Pain Control: Adequate, Prn Tx Ordered Nausea/Vomiting Control: Adequate, Prn Tx Ordered Complications Possibly Related to Anesthesia: None Noted
--- NOTE | 2017-04-19 16:42 | POSTOPPROG ---
Post Op Note Date of Operation: 04/19/17 Surgeon: José Arango Sales Service Coordinator: Lia Anesthesiologist: Mandi Anesthesia: GET(General Endotracheal) Pre-op Diagnosis: Right breast abscess Post-op Diagnosis: same Indication: same Procedure: Right breast I&D and wound vac placement Findings: Right breast abscess Inf/Abcess present in the surg proc area at time of surgery?: Yes Depth: Deep Incisional (Fascial) EBL: Minimal Specimen(s): Right breast abscess
[2017-04-19] MEDS: ENOXAPARIN 40 MG/0.4 ML SYR SC SCH (18:50)
[2017-04-20] MEDS: VANCOMYCIN HCL/NORMAL SALINE 250 ML IV SCH ×3 (01:15→23:18)
[2017-04-20] MEDS: LOSARTAN POTASSIUM 50 MG TAB PO SCH (05:33)
[2017-04-20] MEDS: ACETAMINOPHEN 500 MG TAB PO SCH ×3 (05:34→22:26)
[2017-04-20] MEDS: CETIRIZINE 10 MG TAB PO SCH (05:34)
[2017-04-20] MEDS: MONTELUKAST SODIUM 10 MG TAB PO SCH (05:35)
[2017-04-20] MEDS: ATENOLOL 25 MG TAB PO SCH (05:35)
[2017-04-20] MEDS: CLINDAMYCIN 600 MG/DEXTROSE 50 ML IV SCH ×3 (05:36→22:25)
[2017-04-20 06:01] LABS: PLATELET COUNT 268 10^3/uL (150-400)
[2017-04-20] MEDS: diphenhydrAMINE 25 MG CAP PO SCH (08:28)
[2017-04-20] MEDS: CHOLECALCIFEROL VIT D3 1,000 UNITS TAB PO SCH (08:40)
[2017-04-20] MEDS: HYDROmorphONE/DILAUDID 1 MG/ML INJ IVP PRN ×3 (08:40→23:19)
[2017-04-20] MEDS: PANTOPRAZOLE SODIUM 40 MG TAB PO SCH (08:40)
[2017-04-20] MEDS: ERTAPENEM 1 GM VIAL IV SCH (09:30)
[2017-04-20] MEDS: ENOXAPARIN 40 MG/0.4 ML SYR SC SCH (09:35)
--- NOTE | 2017-04-20 10:27 | PCMIDPN ---
Assessment/Plan: Recurrent R breast abscess and breast/chest wall cellulitis due to GAS, MRSA, ESBL E Coli- remarkable improvement today s/p debridement 04/20/17! probably 80% improvement in intensity of erythema. WBC normalized. AF --continue vancomycin, ertapenem, clindamycin --likely dc clindamycin tomorrow --vanco T okay Medication Vancomycin 1 g IV q.12, #2 Ertapenem 1 g IV Q 24, #3 clindamycin 600mg IV q8 #1 Time 35 min greater than 50% time spent with education counseling patient and her daughter Subjective: feeling much better no diarrhea no itching no rash PICC line placed yesterday w/o problem Objective: Vital Signs Temp Pulse Resp BP Pulse Ox 36.7 C 64 16 133/73 H 98 04/20/17 07:23 04/20/17 07:23 04/20/17 07:23 04/20/17 07:23 04/20/17 07:23 Laboratory Results 04/20/17 05:40 04/20/17 05:40 04/19/17 04/20/17 04/21/17 05:59 05:59 05:59 Intake Total 4980 450 Output Total 10 Balance 4980 440 Gen: pleasant, cheerful nontoxic O/p MMM CV: RRR Chest Clear B R breast faint erythema encompassing entire breast, wound vac in place, induration over top of wound vac from 10-2 oclock LUE PICC c/d/i lisa HERNANDES ICD10 Worksheet Patient Problems: Problems Problem Status Onset Cellulitis Acute Cellulitis of right breast Acute Severe sepsis Acute
--- NOTE | 2017-04-20 12:39 | SOAPPROG ---
SOAP Progress Note Assessment/Plan: Assessment: 72 FEMALE WITH BREAST ABSCESS BEING TREATED AT WOUND CENTER NOW WITH FLORID CELLULITIS AND DRAINAGE WITH FEVER AND CHILLS AND ELEVATED WBC PT DESCRIBES INCREASING INDURATION AND PAIN WB Plan:START ABX/ MAY NEED I&D/ WILL RECHECK IN AM 04/19/17 08:02 04/20/17 12:37 FEELS GREAT/AFEBRILE/WOUND VAC MINIMAL DRAINAGE/ERYTHEMA RESOLVING/PAIN MUCH BETTER CONTROL Objective: Vital Signs Temp Pulse Resp BP Pulse Ox 36.8 C 71 16 141/71 H 96 04/20/17 11:40 04/20/17 11:40 04/20/17 11:40 04/20/17 11:40 04/20/17 11:40 Laboratory Results 04/20/17 05:40 04/20/17 05:40 04/19/17 04/20/17 04/21/17 05:59 05:59 05:59 Intake Total 4980 450 Output Total 10 Balance 4980 440 PT 13.3 SEC (12.0-15.0) 04/18/17 09:50 INR 0.99 (0.83-1.16) 04/18/17 09:50 ICD10 Worksheet Patient Problems: Problems Problem Status Onset Cellulitis Acute Cellulitis of right breast Acute Severe sepsis Acute
[2017-04-20] MEDS ORDERED: POLYETHYLENE GLYCOL 3350 17 GM PKT PO PRN (13:41)
--- NOTE | 2017-04-20 15:02 | ASMTCMCOM ---
CM Note CM Note Notes: Spoke w/pt, dc date unclear. May need IV abx at dc, last time she did outpt infusion. Otherwise pt independent, good support from family. DC Plan: TBD Date Signed: 04/20/2017 03:01 PM Electronically Signed By:Jade Vergara RN
--- NOTE | 2017-04-20 15:08 | HOSPPROG ---
Hospitalist Progress Note Assessment/Plan: 72 yo F e recurrent breast cellulitis and possible abscess # breast infection/Abscess - worsened 24 hours ago despite vancomycin and ertapenem u/s (reviewed) consistent with early abscess s/p OR yesterday - wound vac in place - cellulitis is improved - continue current abx per ID - surgery and wound care following # sepsis- (patient with leukocytosis fever at presentation)- source secondary to breast infection/abscess Both fever and leukocytosis now resolved Blood cultures remain no growth to date - continue current antibiotics # Acute leukocytosis- markedly improved 17 on admission down to 6 today- oxygen saturation 96% on 2 L - continue current antibiotics # HTN- continue home meds # pain- currently well controlled - cont prn IV meds # constipation - starting bowel regimen # pre diabetes:- blood sugar 108-184 - cont to hold metformin # proph - lovenox # dispo> 2MN as pt requires ongoing IV antibiotics and close monitoring Subjective: Feeling much better Objective: Vital Signs Temp Pulse Resp BP Pulse Ox 36.8 C 71 16 141/71 H 96 04/20/17 11:40 04/20/17 11:40 04/20/17 11:40 04/20/17 11:40 04/20/17 11:40 Laboratory Results 04/20/17 05:40 04/20/17 05:40 04/19/17 04/20/17 04/21/17 05:59 05:59 05:59 Intake Total 4980 450 Output Total 10 Balance 4980 440 PT 13.3 SEC (12.0-15.0) 04/18/17 09:50 INR 0.99 (0.83-1.16) 04/18/17 09:50 - Physical Exam Constitutional: no apparent distress Eyes: anicteric sclera Ears, Nose, Mouth, Throat: moist mucous membranes Cardiovascular: No edema Respiratory: no respiratory distress Gastrointestinal: No distension Genitourinary: no bladder fullness Skin: warm Musculoskeletal: No asymmetric calves Neurologic: AAOx3 Psychiatric: interacting appropriately Lymph, Heme, Immunologic: no cervical LAD ICD10 Worksheet Patient Problems: Problems Problem Status Onset Cellulitis Acute Cellulitis of right breast Acute Severe sepsis Acute
--- NOTE | 2017-04-20 20:56 | GOP ---
[f rep st] OPERATIVE REPORT DATE OF OPERATION: 04/19/2017 SURGEON: José Arango MD VICE PRESIDENT RESEARCH: Tiffanie Fitzgerald NP. PREOPERATIVE DIAGNOSIS: Right breast abscess and cellulitis. POSTOPERATIVE DIAGNOSIS: Right breast abscess and cellulitis. PROCEDURE PERFORMED: Right partial mastectomy and resection of abscess cavity. FINDINGS: The patient was found to have a 4 cm cavity area in the right breast which had essentially no good granulation tissue and completely lined with necrotic abscess wall with no undrained pockets and no other extensions or connections to the nipple. ESTIMATED BLOOD LOSS: Minimal. DESCRIPTION OF PROCEDURE: The patient was taken to the operating room where he received satisfactory general endotracheal anesthesia. He was placed in supine position with the right arm outstretched on arm board, prepped and draped in the usual sterile fashion. A transverse incision was made over the opening to the abscess cavity and appeared to be up to approximately 1.5 cm deep. The cavity opened up into a larger pocket as described above. This entire pocket was then completely excised circumferentially and removed. Hemostasis was assured with electrocautery. The wound was infiltrated with 0.5% Marcaine. Topical thrombin was also placed in the cavity. It was then dressed with a wound VAC. She tolerated the procedure well. She was taken to the recovery room in good condition. /[id number]/MODL MTDD
[2017-04-20] MEDS: SENNOSIDES/DOCUSATE SODIUM TAB PO SCH (23:00)
--- NOTE | 2017-04-21 00:35 | HOSPPROG ---
Hospitalist Progress Note Assessment/Plan: XC: Notified by RN of hyperglycemia. Metformin being held in setting of acute illness and other nephrotoxic agents needed (Vanc). Will order sensitive sliding scale insulin for control. Objective: Vital Signs Temp Pulse Resp BP Pulse Ox 36.7 C 76 16 116/58 L 93 04/20/17 22:38 04/20/17 22:38 04/20/17 22:38 04/20/17 22:38 04/20/17 22:38 Laboratory Results 04/20/17 05:40 04/20/17 05:40 04/19/17 04/20/17 04/21/17 05:59 05:59 05:59 Intake Total 4980 450 1500 Output Total 10 Balance 4980 440 1500 PT 13.3 SEC (12.0-15.0) 04/18/17 09:50 INR 0.99 (0.83-1.16) 04/18/17 09:50 ICD10 Worksheet Patient Problems: Problems Problem Status Onset Cellulitis Acute Cellulitis of right breast Acute Severe sepsis Acute
[2017-04-21] MEDS ORDERED: D50W 25 GM/50 ML VIAL IVP PRN (01:00)
[2017-04-21] MEDS ORDERED: D50W 25 GM/50 ML SYR IVP PRN (01:00)
[2017-04-21] MEDS: HYDROmorphONE/DILAUDID 1 MG/ML INJ IVP PRN ×2 (03:32→22:06)
[2017-04-21] MEDS ORDERED: diphenhydrAMINE 25 MG CAP PO PRN (03:46)
[2017-04-21] MEDS: ACETAMINOPHEN 500 MG TAB PO SCH ×3 (06:11→21:55)
[2017-04-21] MEDS: CLINDAMYCIN 600 MG/DEXTROSE 50 ML IV SCH ×3 (06:11→21:57)
[2017-04-21] MEDS: CETIRIZINE 10 MG TAB PO SCH (06:13)
[2017-04-21] MEDS: LOSARTAN POTASSIUM 50 MG TAB PO SCH (06:13)
[2017-04-21] MEDS: ATENOLOL 25 MG TAB PO SCH (06:13)
[2017-04-21] MEDS: MONTELUKAST SODIUM 10 MG TAB PO SCH (06:13)
[2017-04-21] MEDS: INSULIN LISPRO 100 UNIT/ML SC SCH ×3 (07:37→17:57)
[2017-04-21] MEDS: diphenhydrAMINE 25 MG CAP PO SCH (08:19)
[2017-04-21] MEDS: PANTOPRAZOLE SODIUM 40 MG TAB PO SCH (08:19)
[2017-04-21] MEDS: CHOLECALCIFEROL VIT D3 1,000 UNITS TAB PO SCH (08:20)
[2017-04-21] MEDS: SENNOSIDES/DOCUSATE SODIUM TAB PO SCH ×2 (08:20→22:51)
[2017-04-21] MEDS: ERTAPENEM 1 GM VIAL IV SCH (09:40)
[2017-04-21] MEDS: ENOXAPARIN 40 MG/0.4 ML SYR SC SCH (09:40)
--- NOTE | 2017-04-21 10:59 | PCMIDPN ---
Assessment/Plan: Recurrent R breast abscess and breast/chest wall cellulitis due to GAS, MRSA ( Vancomycin RANDY = 1), ESBL E Coli- continued gradual improvement, most erythematous area is under right axilla --continue vancomycin, ertapenem, clindamycin --repeat Vanco T tomorrow AM --clindamycin through today then dc (mar adjusted) --check labs today Medication Vancomycin 1 g IV q.12, #3 Ertapenem 1 g IV Q 24, #4 clindamycin 600mg IV q8 #2 Time 35 min greater than 50% time spent with education counseling patient and her daughter and son Subjective: patient worried about redness and itching under right arm also very worried about recurrent infection Objective: Vital Signs Temp Pulse Resp BP Pulse Ox 36.8 C 69 16 136/75 H 98 04/21/17 07:30 04/21/17 07:30 04/21/17 07:30 04/21/17 07:30 04/21/17 07:30 Laboratory Results 04/20/17 05:40 04/20/17 05:40 04/20/17 04/21/17 04/22/17 05:59 05:59 05:59 Intake Total 450 1500 Output Total 10 Balance 440 1500 Gen: pleasant, cheerful nontoxic O/p MMM CV: RRR Chest Clear B R breast almost no erythema over breast, slight band like erythema under right axilla; wound vac in place, hard area over top of wound vac from 10-2 oclock - but suspect is sponge. TUNG PICC c/d/i lisa HERNANDES ICD10 Worksheet Patient Problems: Problems Problem Status Onset Cellulitis Acute Cellulitis of right breast Acute Severe sepsis Acute
[2017-04-21] MEDS: VANCOMYCIN HCL/NORMAL SALINE 250 ML IV SCH ×2 (11:04→23:10)
[2017-04-21 13:25] LABS: PLATELET COUNT 345 10^3/uL (150-400)
--- NOTE | 2017-04-21 13:39 | SOAPPROG ---
SOAP Progress Note Assessment/Plan: Assessment: 72 FEMALE WITH BREAST ABSCESS BEING TREATED AT WOUND CENTER NOW WITH FLORID CELLULITIS AND DRAINAGE WITH FEVER AND CHILLS AND ELEVATED WBC PT DESCRIBES INCREASING INDURATION AND PAIN WB Plan:START ABX/ MAY NEED I&D/ WILL RECHECK IN AM 04/19/17 08:02 04/20/17 12:37 FEELS GREAT/AFEBRILE/WOUND VAC MINIMAL DRAINAGE/ERYTHEMA RESOLVING/PAIN MUCH BETTER CONTROL 04/21/17 13:38 Stable vital signs/afebrile/breast erythema and resolving/pain is improved/ minimal wound VAC output Plan is wound VAC change in the a.m./continue antibiotics Objective: Vital Signs Temp Pulse Resp BP Pulse Ox 36.8 C 71 16 137/67 H 95 04/21/17 11:52 04/21/17 11:52 04/21/17 11:52 04/21/17 11:52 04/21/17 11:52 Laboratory Results 04/21/17 13:10 04/20/17 04/21/17 04/22/17 05:59 05:59 05:59 Intake Total 450 1500 Output Total 10 Balance 440 1500 PT 13.3 SEC (12.0-15.0) 04/18/17 09:50 INR 0.99 (0.83-1.16) 04/18/17 09:50 ICD10 Worksheet Patient Problems: Problems Problem Status Onset Cellulitis Acute Cellulitis of right breast Acute Severe sepsis Acute
--- NOTE | 2017-04-21 15:51 | HOSPPROG ---
Hospitalist Progress Note Assessment/Plan: 72 yo F e recurrent breast cellulitis and possible abscess # breast infection/Abscess - exam appears stable to me overnight - wound vac in place u/s (reviewed) consistent with early abscess s/p OR 04/19/17 for debridement and washout - continue current abx per ID - surgery and wound care following # sepsis- (patient with leukocytosis fever at presentation)- source secondary to breast infection/abscess Both fever and leukocytosis now resolved Blood cultures remain no growth to date - continue current antibiotics # Acute leukocytosis- markedly improved 17 on admission down to 7 today- oxygen saturation 98% on 2.5 L - continue current antibiotics # HTN- continue home meds # pain- currently well controlled - cont prn IV meds # constipation - starting bowel regimen # pre diabetes:- blood sugar 86-184 - cont to hold metformin - cont SSI # proph - lovenox # dispo> 2MN as pt requires ongoing IV antibiotics and close monitoring I have discussed the case with Dr. Wyatt - we will continue current abx today Subjective: new heat and pain of breast Objective: Vital Signs Temp Pulse Resp BP Pulse Ox 36.8 C 73 16 113/61 95 04/21/17 15:25 04/21/17 15:25 04/21/17 15:25 04/21/17 15:25 04/21/17 15:25 Laboratory Results 04/21/17 13:10 04/21/17 13:10 04/20/17 04/21/17 04/22/17 05:59 05:59 05:59 Intake Total 450 1500 Output Total 10 Balance 440 1500 PT 13.3 SEC (12.0-15.0) 04/18/17 09:50 INR 0.99 (0.83-1.16) 04/18/17 09:50 - Physical Exam Constitutional: appears nourished Eyes: anicteric sclera Ears, Nose, Mouth, Throat: moist mucous membranes Cardiovascular: regular rate and rhythym Respiratory: no respiratory distress Gastrointestinal: normoactive bowel sounds Genitourinary: no bladder fullness Skin: warm, other (erythema of right breast stable) Musculoskeletal: No asymmetric calves Neurologic: AAOx3 Psychiatric: interacting appropriately Lymph, Heme, Immunologic: no cervical LAD ICD10 Worksheet Patient Problems: Problems Problem Status Onset Cellulitis Acute Cellulitis of right breast Acute Severe sepsis Acute
[2017-04-22] MEDS: CLINDAMYCIN 600 MG/DEXTROSE 50 ML IV SCH (05:16)
[2017-04-22] MEDS: LOSARTAN POTASSIUM 50 MG TAB PO SCH (05:16)
[2017-04-22] MEDS: ACETAMINOPHEN 500 MG TAB PO SCH ×3 (05:17→21:01)
[2017-04-22] MEDS: ATENOLOL 25 MG TAB PO SCH (05:17)
[2017-04-22] MEDS: CETIRIZINE 10 MG TAB PO SCH (05:20)
[2017-04-22] MEDS: MONTELUKAST SODIUM 10 MG TAB PO SCH (05:20)
[2017-04-22] MEDS: PANTOPRAZOLE SODIUM 40 MG TAB PO SCH (08:40)
[2017-04-22] MEDS: SENNOSIDES/DOCUSATE SODIUM TAB PO SCH ×2 (08:40→22:13)
[2017-04-22] MEDS: diphenhydrAMINE 25 MG CAP PO SCH (08:40)
[2017-04-22] MEDS: CHOLECALCIFEROL VIT D3 1,000 UNITS TAB PO SCH (08:41)
[2017-04-22] MEDS: INSULIN LISPRO 100 UNIT/ML SC SCH ×3 (09:48→18:04)
[2017-04-22] MEDS: ERTAPENEM 1 GM VIAL IV SCH (09:51)
[2017-04-22] MEDS ORDERED: LORazepam 2 MG/ML INJ IVP ONE (09:53)
[2017-04-22] MEDS: HYDROmorphONE/DILAUDID 1 MG/ML INJ IVP PRN (09:59)
--- NOTE | 2017-04-22 10:39 | WOCRNPDOC ---
[facility]ANK[facility] Advanced Assessment Note - Skin Integrity Problem, Advanced Assess Right Chest Dressing Type: Black Vac Foam (x1), Wound Vac Dressing Description: Clean/Dry, Intact Exudate Amount: Scant Exudate Characteristic(s): Sanguinous Integumentary Issue Intervention: Dressing Changed Wound Bed Constitution: Smooth Tissue, Red/[place] - Non Granular Tissue, Undermining (10-2 oclock 2.2 cm ) Site Measurement - Head-to-Toe Length X Width X Depth (cm): 4x6.5x1.8 Skin Integrity Problem Comment: Changed vac with Mimi GARZA and Narcisa CANTU. No issues. Patient tolerated proceedure well. Used one small simplace black foam for wound bed after draping andrés wound and protecting with skin prep. Vac restarted at -125 mm Hg continuous suction no leaks. Next change Wed.
[2017-04-22] MEDS: ENOXAPARIN 40 MG/0.4 ML SYR SC SCH (10:59)
[2017-04-22] MEDS: VANCOMYCIN HCL/NORMAL SALINE 250 ML IV SCH ×2 (12:33→23:55)
--- NOTE | 2017-04-22 12:44 | SOAPPROG ---
SOAP Progress Note Assessment/Plan: Assessment: 72 FEMALE WITH BREAST ABSCESS BEING TREATED AT WOUND CENTER NOW WITH FLORID CELLULITIS AND DRAINAGE WITH FEVER AND CHILLS AND ELEVATED WBC PT DESCRIBES INCREASING INDURATION AND PAIN WB S: Pt doing well. Erythema is much improved. Pain is improved as well. Denies chills. O: Wound is starting to heal. Minimal drainage in wound VAC. Afebrile. Plan: Wound vac changed today. Will continue to monitor. No need for further irrigation and debridement at this time. 04/22/17 12:40 Objective: Vital Signs Temp Pulse Resp BP Pulse Ox 36.9 C 74 16 115/66 94 04/22/17 12:00 04/22/17 12:00 04/22/17 12:00 04/22/17 12:00 04/22/17 12:00 Laboratory Results 04/21/17 13:10 04/21/17 13:10 04/21/17 04/22/17 04/23/17 05:59 05:59 05:59 Intake Total 1500 870 Balance 1500 870 PT 13.3 SEC (12.0-15.0) 04/18/17 09:50 INR 0.99 (0.83-1.16) 04/18/17 09:50 ICD10 Worksheet Patient Problems: Problems Problem Status Onset Cellulitis Acute Cellulitis of right breast Acute Severe sepsis Acute
--- NOTE | 2017-04-22 15:30 | PCMIDPN ---
Assessment/Plan: Assessment: Right breast postoperative infection secondary to polymicrobial bacteria. Group a strep and MRSA as well as anaerobes in culture. Currently treating with vancomycin and ertapenem. Clindamycin on previously. Significant reduction in erythema around the right breast as well as erythema tracking to the right flank. Will continue the vancomycin and ertapenem. Ertapenem necessary secondary to Klebsiella ESBL. Plan: 1. Continue both vancomycin and ertapenem. 2. Continue to follow appearance of wound. 3. Discuss with wound care about strategy going forward. Subjective: Patient is resting comfortably in her hospital bed. She has no new complaint. Notes that her erythema on the right side of her breast is significantly reduced. No fevers or chills. Tolerating vancomycin and ertapenem without issue. Objective: Vancomycin # 4 Ertapenem # 5 Vital Signs Temp Pulse Resp BP Pulse Ox 36.9 C 74 16 115/66 94 04/22/17 12:00 04/22/17 12:00 04/22/17 12:00 04/22/17 12:00 04/22/17 12:00 Laboratory Results 04/21/17 13:10 04/21/17 13:10 04/21/17 04/22/17 04/23/17 05:59 05:59 05:59 Intake Total 1500 870 Balance 1500 870 - Physical Exam General Appearance: WD/WN, alert, no apparent distress, non-toxic Respiratory: lungs clear, normal breath sounds, No respiratory distress Cardiac/Chest: regular rate, rhythm, No tachycardia Skin: normal color, warm/dry, other (Right breast with VAC dressing attached. No surrounding erythema. No significant induration.), No rash Neuro/Psych: alert, normal mood/affect, oriented x 3 ICD10 Worksheet Patient Problems: Problems Problem Status Onset Cellulitis Acute Cellulitis of right breast Acute Severe sepsis Acute
--- NOTE | 2017-04-22 16:54 | HOSPPROG ---
Hospitalist Progress Note Assessment/Plan: 72 yo F recurrent breast cellulitis and possible abscess # breast infection/Abscess - exam appears stable to me overnight - wound vac changed today u/s (reviewed) consistent with early abscess s/p OR 04/19/17 for debridement and washout - continue current abx per ID - surgery and wound care following # sepsis- (patient with leukocytosis fever at presentation)- source secondary to breast infection/abscess Both fever and leukocytosis now resolved Blood cultures remain no growth to date - continue current antibiotics # Acute leukocytosis- markedly improved 17 on admission down to 7 today- oxygen saturation 97% on 2L - continue current antibiotics # HTN- continue home meds # pain- currently well controlled - cont prn IV meds # constipation - starting bowel regimen # pre diabetes:- blood sugar 86-122 - cont to hold metformin - cont SSI # proph - lovenox # dispo> 2MN as pt requires ongoing IV antibiotics and close monitoring I have discussed the case with RN - continue current course Subjective: pain stable Objective: Vital Signs Temp Pulse Resp BP Pulse Ox 36.9 C 75 14 122/95 H 97 04/22/17 15:49 04/22/17 15:49 04/22/17 15:49 04/22/17 15:49 04/22/17 15:49 Laboratory Results 04/21/17 13:10 04/21/17 13:10 04/21/17 04/22/17 04/23/17 05:59 05:59 05:59 Intake Total 1500 870 Balance 1500 870 PT 13.3 SEC (12.0-15.0) 04/18/17 09:50 INR 0.99 (0.83-1.16) 04/18/17 09:50 - Physical Exam Constitutional: no apparent distress Eyes: anicteric sclera Ears, Nose, Mouth, Throat: moist mucous membranes Cardiovascular: regular rate and rhythym Respiratory: no respiratory distress Gastrointestinal: normoactive bowel sounds Genitourinary: no bladder fullness Skin: warm Musculoskeletal: No asymmetric calves Neurologic: AAOx3 Psychiatric: interacting appropriately Lymph, Heme, Immunologic: no cervical LAD ICD10 Worksheet Patient Problems: Problems Problem Status Onset Cellulitis Acute Cellulitis of right breast Acute Severe sepsis Acute
[2017-04-23] MEDS: ACETAMINOPHEN 500 MG TAB PO SCH ×3 (05:06→21:26)
[2017-04-23] MEDS: ATENOLOL 25 MG TAB PO SCH (05:06)
[2017-04-23] MEDS: LOSARTAN POTASSIUM 50 MG TAB PO SCH (05:06)
[2017-04-23] MEDS: MONTELUKAST SODIUM 10 MG TAB PO SCH (05:06)
[2017-04-23] MEDS: CETIRIZINE 10 MG TAB PO SCH (05:06)
[2017-04-23] MEDS: INSULIN LISPRO 100 UNIT/ML SC SCH ×3 (08:11→17:17)
[2017-04-23] MEDS: diphenhydrAMINE 25 MG CAP PO SCH (08:26)
[2017-04-23] MEDS: PANTOPRAZOLE SODIUM 40 MG TAB PO SCH (09:39)
[2017-04-23] MEDS: SENNOSIDES/DOCUSATE SODIUM TAB PO SCH ×2 (09:39→21:26)
[2017-04-23] MEDS: CHOLECALCIFEROL VIT D3 1,000 UNITS TAB PO SCH (09:39)
[2017-04-23] MEDS: ERTAPENEM 1 GM VIAL IV SCH (09:42)
[2017-04-23] MEDS: ENOXAPARIN 40 MG/0.4 ML SYR SC SCH (09:45)
[2017-04-23] MEDS: VANCOMYCIN HCL/NORMAL SALINE 250 ML IV SCH ×2 (11:37→23:37)
--- NOTE | 2017-04-23 14:12 | PCMIDPN ---
Assessment/Plan: Assessment/Plan: 1. Right breast cellulitis/abscess with wound vac: - s/p I & D. - Cx with MRsa, GAs, anaerobe. Previous cx with ESBL kleb -wbc improved - creatinine stable. - vanco trough 14 currently on vanco, invanz -s/p clinda from 04/19-04/22/17 -Reviewed plan of care with patient, son at bedside. meds vanco invanz Subjective: afebrile. tender on superior margin of breast. wound vac in place. resolution of erythema over breast extending to back. denies abd pain or diarrhea. breathing easy. Objective: Vital Signs Temp Pulse Resp BP Pulse Ox 36.9 C 71 18 140/75 H 86 L 04/23/17 11:25 04/23/17 11:25 04/23/17 11:25 04/23/17 11:25 04/23/17 11:25 Laboratory Results 04/23/17 05:05 04/23/17 05:05 04/22/17 04/23/17 04/24/17 05:59 05:59 05:59 Intake Total 870 600 Balance 870 600 - Physical Exam General Appearance: alert, no apparent distress Extremities: No swelling Abdomen: normal bowel sounds, non-tender, soft, No distended Skin: other (right breast: no erythema. wound vac noted. induration superior to wound vac. slgihtly tender there. ) ICD10 Worksheet Patient Problems: Problems Problem Status Onset Cellulitis Acute Cellulitis of right breast Acute Severe sepsis Acute
--- NOTE | 2017-04-23 15:17 | SOAPPROG ---
SOAP Progress Note Assessment/Plan: Assessment/Plan: 72 Y F s/p I&D R breast abscess, hx of excisional bx, infected hematoma. WBCs normalized. Afebrile. Erythema and induration improved. Wound vac change tomorrow. If looks good, then likely d/c with wound vac. Appreciate ID input. Seen with Dr. Arango today. 04/23/17 15:16 Objective: Vital Signs Temp Pulse Resp BP Pulse Ox 36.9 C 78 20 144/91 H 93 04/23/17 15:11 04/23/17 15:11 04/23/17 15:11 04/23/17 15:11 04/23/17 15:11 Laboratory Results 04/23/17 05:05 04/23/17 05:05 04/22/17 04/23/17 04/24/17 05:59 05:59 05:59 Intake Total 870 600 Balance 870 600 PT 13.3 SEC (12.0-15.0) 04/18/17 09:50 INR 0.99 (0.83-1.16) 04/18/17 09:50 ICD10 Worksheet Patient Problems: Problems Problem Status Onset Cellulitis Acute Cellulitis of right breast Acute Severe sepsis Acute
--- NOTE | 2017-04-23 16:33 | HOSPPROG ---
Hospitalist Progress Note Assessment/Plan: 72 yo F recurrent breast cellulitis and possible abscess # breast infection/Abscess - exam improved again this morning - wound vac changed yesterday u/s (reviewed) consistent with early abscess s/p OR 04/19/17 for debridement and washout - continue current abx per ID - surgery and wound care following - expect wound vac change tomorrow and possible dc with wound vac # sepsis- (patient with leukocytosis fever at presentation)- source secondary to breast infection/abscess Both fever and leukocytosis now resolved Blood cultures remain no growth to date - continue current antibiotics # Acute leukocytosis- markedly improved 17 on admission down to 6 today- oxygen saturation 93% on RA - continue current antibiotics # HTN- continue home meds # pain- currently well controlled - cont prn IV meds # constipation - starting bowel regimen # pre diabetes- blood sugar 86-122 - cont to hold metformin - cont SSI # proph - lovenox # dispo> 2MN as pt requires ongoing IV antibiotics and close monitoring I have discussed the case with RN - continue current course - anticipate possible dc tomorrow Subjective: improved pain ovenright - tolerating PO Objective: Vital Signs Temp Pulse Resp BP Pulse Ox 36.9 C 78 20 144/91 H 93 04/23/17 15:11 04/23/17 15:11 04/23/17 15:11 04/23/17 15:11 04/23/17 15:11 Laboratory Results 04/23/17 05:05 04/23/17 05:05 04/22/17 04/23/17 04/24/17 05:59 05:59 05:59 Intake Total 870 600 Balance 870 600 PT 13.3 SEC (12.0-15.0) 04/18/17 09:50 INR 0.99 (0.83-1.16) 04/18/17 09:50 - Physical Exam Constitutional: no apparent distress Eyes: anicteric sclera Ears, Nose, Mouth, Throat: moist mucous membranes Cardiovascular: regular rate and rhythym Respiratory: no respiratory distress, no rales or rhonchi Gastrointestinal: normoactive bowel sounds Genitourinary: no bladder fullness Skin: warm Musculoskeletal: No asymmetric calves Neurologic: AAOx3 Psychiatric: interacting appropriately Lymph, Heme, Immunologic: no cervical LAD ICD10 Worksheet Patient Problems: Problems Problem Status Onset Cellulitis Acute Cellulitis of right breast Acute Severe sepsis Acute
--- NOTE | 2017-04-23 16:34 | ASMTCMCOM ---
CM Note CM Note Notes: CM spoke w/ NESSA Jung and PEPE Garcia regarding d/c POC. Pt is now on vanco and invanz for iv antibiotics. Pt will need a wound vac at time of d/c. CM faxed signed copy of [facility] order to [facility]. CM met w/ pt for dispo planning. It is uncertain what pt will need for ivabx at this time. Pt would like to hold off on referrals to [facility] at this time. Pt is uncertain if she would like outpatient infusion or home infusion. CM to follow. Plan: TBD Date Signed: 04/23/2017 04:34 PM Electronically Signed By:KAYLA Shaw
[2017-04-24] MEDS: ACETAMINOPHEN 500 MG TAB PO SCH ×3 (05:52→21:59)
[2017-04-24] MEDS: MONTELUKAST SODIUM 10 MG TAB PO SCH (05:52)
[2017-04-24] MEDS: CETIRIZINE 10 MG TAB PO SCH (05:53)
[2017-04-24] MEDS: ATENOLOL 25 MG TAB PO SCH (05:53)
[2017-04-24] MEDS: LOSARTAN POTASSIUM 50 MG TAB PO SCH (05:54)
[2017-04-24] MEDS ORDERED: LORazepam 2 MG/ML INJ IVP ONE (08:22)
[2017-04-24] MEDS ORDERED: LIDOCAINE HCL 4% TOPICAL SOLN 50ML MM ONE (08:22)
[2017-04-24] MEDS: diphenhydrAMINE 25 MG CAP PO SCH (08:26)
[2017-04-24] MEDS: INSULIN LISPRO 100 UNIT/ML SC SCH ×3 (08:32→18:36)
[2017-04-24] MEDS: PANTOPRAZOLE SODIUM 40 MG TAB PO SCH (08:33)
[2017-04-24] MEDS: SENNOSIDES/DOCUSATE SODIUM TAB PO SCH ×2 (08:34→21:59)
[2017-04-24] MEDS: CHOLECALCIFEROL VIT D3 1,000 UNITS TAB PO SCH (08:35)
--- NOTE | 2017-04-24 08:44 | SOAPPROG ---
SOAP Progress Note Assessment/Plan: Assessment/Plan: 72 Y F s/p I&D R breast abscess, hx of excisional bx, infected hematoma. Contacting wound care to coordinate vac change today. Ordered ativan and viscous lidocaine. May need some bedside sharp debridement today but still suspect she could discharge after vac change if arrangements made. Outpatient wound vac paperwork completed yesterday. Vac to suction this am. No erythema, and surrounding breast tissue is still soft. 04/24/17 08:41 Objective: Vital Signs Temp Pulse Resp BP Pulse Ox 36.9 C 81 16 116/60 93 04/24/17 04:00 04/24/17 05:53 04/24/17 04:00 04/24/17 05:54 04/24/17 04:00 Laboratory Results 04/23/17 05:05 04/23/17 05:05 04/23/17 04/24/17 04/25/17 05:59 05:59 05:59 Intake Total 600 1460 Balance 600 1460 PT 13.3 SEC (12.0-15.0) 04/18/17 09:50 INR 0.99 (0.83-1.16) 04/18/17 09:50 ICD10 Worksheet Patient Problems: Problems Problem Status Onset Cellulitis Acute Cellulitis of right breast Acute Severe sepsis Acute
[2017-04-24] MEDS: ERTAPENEM 1 GM VIAL IV SCH (08:57)
[2017-04-24] MEDS: ENOXAPARIN 40 MG/0.4 ML SYR SC SCH (09:44)
[2017-04-24] MEDS: VANCOMYCIN HCL/NORMAL SALINE 250 ML IV SCH ×2 (11:17→22:02)
[2017-04-24] MEDS ORDERED: LORazepam 2 MG/ML INJ ONE (11:54)
[2017-04-24] MEDS: HYDROmorphONE/DILAUDID 1 MG/ML INJ IVP PRN (11:58)
--- NOTE | 2017-04-24 13:02 | PCMIDPN ---
Assessment/Plan: #Recurrent R breast abscess and breast/chest wall cellulitis due to GAS, MRSA ( Vancomycin RANDY = 1), ESBL E Coli- complete resolution of erythema, tender LN at 10-11 o'clock no fluctuance. Base of wound healthy appearing --continue wound vac --cont IV ertapenem through 05/03 --continue another day of vancomycin, like dc at discharge. GAS primary pathogen #Diarrhea, abdominal cramping, anorexia: check Cdiff Medication Vancomycin 1 g IV q.12h, #5 Ertapenem 1 g IV Q 24h, #6 Time 35 min greater than 50% time spent with education counseling patient Subjective: patient with 2 loose stools and abdominal cramping feels too tired to go home Objective: Vital Signs Temp Pulse Resp BP Pulse Ox 36.9 C 73 18 146/69 H 93 04/24/17 08:00 04/24/17 08:00 04/24/17 08:00 04/24/17 08:00 04/24/17 08:00 Laboratory Results 04/23/17 05:05 04/23/17 05:05 04/23/17 04/24/17 04/25/17 05:59 05:59 05:59 Intake Total 600 1460 542 Balance 600 1460 542 Gen: pleasant, cheerful nontoxic O/p MMM CV: RRR Chest Clear B R breast no erythema over breast, or under right axilla; wound vac in place, tender LN at 10-11 oclock towards axilla, based of wound c/w healthy appearing fatty tissue. no purulence no necrotic material LUE PICC c/d/i no CECILIO ICD10 Worksheet Patient Problems: Problems Problem Status Onset Cellulitis Acute Cellulitis of right breast Acute Severe sepsis Acute
--- NOTE | 2017-04-24 13:37 | HOSPPROG ---
Hospitalist Progress Note Assessment/Plan: 72 yo F recurrent breast cellulitis and possible abscess. Today is my first encounter with the patient, reviewed her care with Dr Wyatt. #Recurrent R breast abscess and breast/chest wall cellulitis due to GAS, MRSA, ESBL E Coli -wound vac in place -Vancomycin and Ertapenem -PICC in place # sepsis- (patient with leukocytosis fever at presentation)- source secondary to breast infection/abscess -fever and leukocytosis resolved -Blood cultures no growth #mild hyperkalemia -labs for a.m. #anorexia -appetite is poor -does best w Jamba juices #loose stools per patient -c diff pcr ordered # Acute leukocytosis -resolved # HTN- continue home meds # pain- currently well controlled - cont prn IV meds # constipation - resolved # pre diabetes- blood sugar 86-122 - cont to hold metformin - cont SSI # proph - lovenox # dispo> 2MN as pt requires ongoing IV antibiotics and close monitoring #Plan: will see how she is tomorrow, possible dc in the next or so depending on how she is feeling Subjective: Mahnaz said breast is still painful on the outer edge area. Has a poor appetite. Objective: Vital Signs Temp Pulse Resp BP Pulse Ox 36.1 C 76 18 146/68 H 93 04/24/17 12:00 04/24/17 12:00 04/24/17 12:00 04/24/17 12:00 04/24/17 12:00 Laboratory Results 04/23/17 05:05 04/23/17 05:05 04/23/17 04/24/17 04/25/17 05:59 05:59 05:59 Intake Total 600 1460 542 Balance 600 1460 542 PT 13.3 SEC (12.0-15.0) 04/18/17 09:50 INR 0.99 (0.83-1.16) 04/18/17 09:50 - Physical Exam Constitutional: uncomfortable Eyes: PERRL Ears, Nose, Mouth, Throat: hearing normal Cardiovascular: regular rate and rhythym Respiratory: no respiratory distress Skin: warm, other (right breast with wound vac in place, tenderness on the outer edge of the breast area, minimal redness) Neurologic: AAOx3 Psychiatric: interacting appropriately ICD10 Worksheet Patient Problems: Problems Problem Status Onset Cellulitis Acute Cellulitis of right breast Acute Severe sepsis Acute
[2017-04-24] MEDS ORDERED: LORazepam 0.5 MG TAB PO PRN (14:14)
--- NOTE | 2017-04-24 15:32 | WOCRNPDOC ---
WOCRN Advanced Assessment Note - Skin Integrity Problem, Advanced Assess Right Chest Dressing Type: Black Vac Foam, Wound Vac Other Dressing Type: x2 Dressing Description: Clean/Dry, Intact Exudate Amount: Minimal Exudate Color: Reddish/Yellow Exudate Characteristic(s): Serosanguinous Integumentary Issue Intervention: Dressing Changed Andrés Wound Tissue: Swollen, Intact, Painful/Tender Andrés Wound Swelling: Mild Wound Bed Color: Steen, Yellow Wound Bed Constitution: Red/[place] - Non Granular Tissue, Undermining (10 o'clock to 2 o'clock, 1.6cm), Subcutaneous Fat Wound Edges: Attached, Well Defined Site Measurement - Head-to-Toe Length X Width X Depth (cm): 4x7x1.6 Skin Integrity Problem Comment: Patient premedicated with dilaudid and ativan by student RN and instructor. Vac removed by this RN and Dr. Arango and Narcisa Orr in to see. Topical lidocaine applied by Narcisa Orr for debridement. Once debridement complete, wound vac placed by this RN. Skin prep applied to andrés wound skin and draped in the typical fashion. Two pieces small black simplace foam applied to wound bed, including area of undermining. Wound vac reconnected to low continuous suction at -125mmHg with good seal. Patient tolerated the procedure well. Wound care will round again on Saturday.
[2017-04-25] MEDS: LOSARTAN POTASSIUM 50 MG TAB PO SCH (06:19)
[2017-04-25] MEDS: ACETAMINOPHEN 500 MG TAB PO SCH ×3 (06:19→20:31)
[2017-04-25] MEDS: MONTELUKAST SODIUM 10 MG TAB PO SCH (06:19)
[2017-04-25] MEDS: ATENOLOL 25 MG TAB PO SCH (06:19)
[2017-04-25] MEDS: CETIRIZINE 10 MG TAB PO SCH (06:20)
[2017-04-25] MEDS: PANTOPRAZOLE SODIUM 40 MG TAB PO SCH (08:23)
[2017-04-25] MEDS: CHOLECALCIFEROL VIT D3 1,000 UNITS TAB PO SCH (08:23)
[2017-04-25] MEDS: ENOXAPARIN 40 MG/0.4 ML SYR SC SCH (08:24)
[2017-04-25] MEDS: diphenhydrAMINE 25 MG CAP PO SCH (08:24)
[2017-04-25] MEDS: SENNOSIDES/DOCUSATE SODIUM TAB PO SCH ×2 (08:24→20:33)
[2017-04-25] MEDS: INSULIN LISPRO 100 UNIT/ML SC SCH ×3 (08:34→18:33)
[2017-04-25] MEDS: ERTAPENEM 1 GM VIAL IV SCH (08:52)
[2017-04-25] MEDS ORDERED: SULFAMETHOX/TMP 800/160 MG 1 TAB PO SCH (09:00)
--- NOTE | 2017-04-25 09:09 | SOAPPROG ---
SOAP Progress Note Assessment/Plan: Assessment/Plan: 72 Y F s/p I&D R breast abscess, hx of excisional bx, infected hematoma S: Pt doing well overall, although still c/o periareolar pain, as well as in the right axilla. Pt reports that she is unable to be discharged at this time d /t still being on 2 IV antibiotics. O: Afebrile. Tissue around wound soft and dry. No erythema appreciated. Wound to vac suction. Minimal discharge. Persistent pain most likely due to reactive lymph nodes. Plan: Continue to monitor. Will plan for wound vac change tomorrow. Pt seen with Dr. Arango. Objective: Vital Signs Temp Pulse Resp BP Pulse Ox 36.7 C 68 20 127/65 H 90 L 04/25/17 07:54 04/25/17 07:54 04/25/17 07:54 04/25/17 07:54 04/25/17 07:54 Laboratory Results 04/23/17 05:05 04/25/17 06:25 04/24/17 04/25/17 04/26/17 05:59 05:59 05:59 Intake Total 1460 742 Balance 1460 742 PT 13.3 SEC (12.0-15.0) 04/18/17 09:50 INR 0.99 (0.83-1.16) 04/18/17 09:50 ICD10 Worksheet Patient Problems: Problems Problem Status Onset Cellulitis Acute Cellulitis of right breast Acute Severe sepsis Acute
[2017-04-25] MEDS: VANCOMYCIN HCL/NORMAL SALINE 250 ML IV SCH (10:41)
--- NOTE | 2017-04-25 10:50 | PCMIDPN ---
Assessment/Plan: #Recurrent R breast abscess and breast/chest wall cellulitis due to GAS, MRSA ( Vancomycin RANDY = 1), ESBL E Coli- Continued complete resolution of erythema, tender LN at 10-11 o'clock no fluctuance. --continue wound vac --cont IV ertapenem through 05/03 --DC vancomycin today, reasoning explained to patient - basically GAS primary pathogen and does not need ongoing MRSA coverage and risks associated with Vancomycin. #Diarrhea, abdominal cramping, anorexia: Cdiff negative Medication Vancomycin 1 g IV q.12h, #6 Ertapenem 1 g IV Q 24h, #7 Time 35 min greater than 50% time spent with education counseling patient Subjective: patient feeling somewhat down today, very worried about recurrence of infection Objective: Vital Signs Temp Pulse Resp BP Pulse Ox 36.7 C 68 20 127/65 H 90 L 04/25/17 07:54 04/25/17 07:54 04/25/17 07:54 04/25/17 07:54 04/25/17 07:54 Laboratory Results 04/23/17 05:05 04/25/17 06:25 04/24/17 04/25/17 04/26/17 05:59 05:59 05:59 Intake Total 1460 742 Balance 1460 742 - Physical Exam General Appearance: alert, no apparent distress Respiratory: No accessory muscle use Extremities: No pedal edema Skin: other (R breast wound vac in place, mild tenderness 1 to 3 oclock adjacent to wound vac, persistent tenderness of LN midway to axilla), No rash Neuro/Psych: alert, oriented x 3, depressed affect - Time Spent With Patient Time Spent with Patient: greater than 35 minutes Time Spent with Patient: Greater than 35 minutes spent on this patients care, greater than 50% of time spent counseling, educating, and coordinating care regarding the above mentioned plan. ICD10 Worksheet Patient Problems: Problems Problem Status Onset Cellulitis Acute Cellulitis of right breast Acute Severe sepsis Acute
--- NOTE | 2017-04-25 12:31 | HOSPPROG ---
Hospitalist Progress Note Assessment/Plan: 72 yo F recurrent breast cellulitis and possible abscess. #Recurrent R breast abscess and breast/chest wall cellulitis due to GAS, MRSA, ESBL E Coli -wound vac in place -Vancomycin (dc 04/25) and Ertapenem -PICC in place # sepsis- (patient with leukocytosis fever at presentation)- source secondary to breast infection/abscess -fever and leukocytosis resolved -Blood cultures no growth #mild hyperkalemia -resolved #anorexia -appetite is poor -does best w Jamba juices #loose stools per patient -c diff negative # Acute leukocytosis -resolved # HTN- continue home meds # pain- currently well controlled - cont prn IV meds # constipation - resolved # pre diabetes- blood sugar 86-122 - cont to hold metformin - cont SSI # proph - lovenox # dispo> 2MN as pt requires ongoing IV antibiotics and close monitoring #Plan: Dr Arango to further evaluated her wound on r breast tomorrow, hopefully, can dc in the next day or so. Subjective: Mahnaz still has pain on right breast area, outer edge, and medial to the left on right nipple area. Objective: Vital Signs Temp Pulse Resp BP Pulse Ox 36.9 C 72 20 141/69 H 91 L 04/25/17 11:26 04/25/17 11:26 04/25/17 11:26 04/25/17 11:26 04/25/17 11:26 Laboratory Results 04/23/17 05:05 04/25/17 06:25 04/24/17 04/25/17 04/26/17 05:59 05:59 05:59 Intake Total 1460 742 Balance 1460 742 PT 13.3 SEC (12.0-15.0) 04/18/17 09:50 INR 0.99 (0.83-1.16) 04/18/17 09:50 - Physical Exam Constitutional: uncomfortable Eyes: PERRL Ears, Nose, Mouth, Throat: hearing normal Cardiovascular: regular rate and rhythym Respiratory: no respiratory distress Gastrointestinal: normoactive bowel sounds Skin: warm, other (right breast with some tenderness to the medial side of nipple aea) Musculoskeletal: full muscle strength Neurologic: AAOx3 Psychiatric: interacting appropriately ICD10 Worksheet Patient Problems: Problems Problem Status Onset Cellulitis Acute Cellulitis of right breast Acute Severe sepsis Acute
[2017-04-26] MEDS: LOSARTAN POTASSIUM 50 MG TAB PO SCH (05:05)
[2017-04-26] MEDS: ACETAMINOPHEN 500 MG TAB PO SCH ×3 (05:05→21:12)
[2017-04-26] MEDS: ATENOLOL 25 MG TAB PO SCH (05:06)
[2017-04-26] MEDS: MONTELUKAST SODIUM 10 MG TAB PO SCH (05:06)
[2017-04-26] MEDS: CETIRIZINE 10 MG TAB PO SCH (05:07)
[2017-04-26] MEDS: INSULIN LISPRO 100 UNIT/ML SC SCH ×3 (07:47→17:06)
[2017-04-26] MEDS: ENOXAPARIN 40 MG/0.4 ML SYR SC SCH (08:37)
[2017-04-26] MEDS: CHOLECALCIFEROL VIT D3 1,000 UNITS TAB PO SCH (08:38)
[2017-04-26] MEDS: diphenhydrAMINE 25 MG CAP PO SCH (08:40)
[2017-04-26] MEDS: SENNOSIDES/DOCUSATE SODIUM TAB PO SCH ×2 (08:41→21:13)
[2017-04-26] MEDS: PANTOPRAZOLE SODIUM 40 MG TAB PO SCH (08:42)
[2017-04-26] MEDS: ERTAPENEM 1 GM VIAL IV SCH (08:42)
--- NOTE | 2017-04-26 09:59 | SOAPPROG ---
SOAP Progress Note Assessment/Plan: Assessment/Plan: 72 Y F s/p I&D R breast abscess, hx of excisional bx, infected hematoma S: More pain today. This time in the 12 O'clock position on the right breast. She is concerned about possible spread of infection. Getting out of bed some. O: Afebrile. Tissue around wound soft and dry. No erythema appreciated. Wound to vac suction. Minimal discharge. Spread of infection seems unlikely, but will evaluate during wound vac change. Pt now only on one IV antibiotic. Plan: Change wound vac today. Plan for discharge in the next day or so. Would like to see pt get up out of bed more frequently. Pt seen with Dr. Arango. 04/26/17 09:54 Objective: Vital Signs Temp Pulse Resp BP Pulse Ox 36.8 C 70 18 116/67 95 04/26/17 07:38 04/26/17 07:38 04/26/17 07:38 04/26/17 07:38 04/26/17 07:38 Laboratory Results 04/23/17 05:05 04/25/17 06:25 04/25/17 04/26/17 04/27/17 05:59 05:59 05:59 Intake Total 742 300 Balance 742 300 PT 13.3 SEC (12.0-15.0) 04/18/17 09:50 INR 0.99 (0.83-1.16) 04/18/17 09:50 ICD10 Worksheet Patient Problems: Problems Problem Status Onset Cellulitis Acute Cellulitis of right breast Acute Severe sepsis Acute
[2017-04-26] MEDS: HYDROmorphONE/DILAUDID 1 MG/ML INJ IVP PRN (11:57)
--- NOTE | 2017-04-26 13:16 | WOCRNPDOC ---
WOCRN Advanced Assessment Note - Skin Integrity Problem, Advanced Assess Right Chest Dressing Type: Black Vac Foam (x2 pieces removed), Wound Vac Dressing Description: Intact Exudate Amount: Scant Exudate Color: Reddish/Yellow Exudate Characteristic(s): Serosanguinous Integumentary Issue Intervention: Dressing Changed Laurita Wound Tissue: Intact, Painful/Tender (pt reports tenderness along R lateral aspect of R breast; MD ordered ultrasound) Laurita Wound Swelling: None Wound Bed Color: Black (<5%,scattered,likely cautery), Red, Yellow Wound Bed Constitution: Red/[place] - Non Granular Tissue (80%), Undermining ( 1.5cm from 9-12 o'clock; 3cm @ 1 o'clock), Subcutaneous Fat (20%) Wound Edges: Well Defined Site Odor: None Site Measurement - Head-to-Toe Length X Width X Depth (cm): [id number] Skin Integrity Problem Comment: Prior to dressing change, patient ws administered Ativan and Dilaudid, and 4% Lidocaine solution was injected into the existing vac dressing to soak prior to dressing removal. Surgical wound on R lateral breast, predominantly pink/red well-vascularized breast tissue w/ scattered subcutaneous fat, some of which has trace necrosis evident. There are also occasional black spots throughout, which I suspect is cautery. No purulence observed, and no periwound swelling or erythema. Patient does c/o tenderness along the R lateral aspect of her breast; while there is no induration or redness, surgeon has ordered an ultrasound to r/o abscess. Periwound skin prepped and draped. One continuous piece of black Simplace foam placed into wound bed. Vac settings resumed at -125mmHg, no leaks detected. Patient tolerated the procedure well; plan is for dressing to changed again on Saturday 04/29. Drs. Arango and present to visualize wound.
--- NOTE | 2017-04-26 13:34 | PCMIDPN ---
Assessment/Plan: Assessment/Plan: * Recurrent right breast infection status post incision and drainage: Marked clinical improvement post drainage with full resolution of cellulitis. Polymicrobial cultures with growth of group A Streptococcus, MRSA, and ESBL producing Klebsiella. Received 6 days of vancomycin which is now been discontinued given clinical improvement. Plan 14 days of ertapenem in total providing coverage against group A Streptococcus and Klebsiella. Continue wound VAC. Patient will have ultrasound to further assessed right lateral breast/ chest wall pain. * Diarrhea: Resolved with negative C difficile PCR. 04/26/17 13:31 Subjective: Patient complains of pain in right lateral breast /chest wall. No ongoing diarrhea. Objective: Vital Signs Temp Pulse Resp BP Pulse Ox 37.0 C 73 16 126/81 H 93 04/26/17 11:31 04/26/17 11:31 04/26/17 11:31 04/26/17 11:31 04/26/17 11:31 Laboratory Results 04/23/17 05:05 04/25/17 06:25 04/25/17 04/26/17 04/27/17 05:59 05:59 05:59 Intake Total 742 300 Balance 742 300 Ertapenem # 7 - Physical Exam General Appearance: alert, no apparent distress EENT: No scleral icterus, No thrush Cardiac/Chest: other ( right breast without residual cellulitis; some tenderness superior to wound and over lateral breast without focal induration or fluctuance; wound bed clean with some residual necrosis or cautery affect along scattered areas of fatty tissue) ICD10 Worksheet Patient Problems: Problems Problem Status Onset Cellulitis Acute Cellulitis of right breast Acute Severe sepsis Acute
--- NOTE | 2017-04-26 13:38 | PDIAF ---
- Diagnosis Diagnosis: right breast abscess /cellulitis Code Status: Full Code - Medication Management Discharge Medications: Medications to Continue on Transfer Atenolol [Tenormin 50 mg (*)] 25 mg PO DAILY06 01/15/14 [Last Taken 04/17/17] CETIRIZINE HCL [ZYRTEC] 10 mg PO DAILY06 01/15/14 [Last Taken 04/17/17] Fluticasone Nasal [Flonase Nasal [place]] 1 sprays NASAL DAILY PRN 01/15/14 [Last Taken 04/18/17] Losartan Potassium [Cozaar] 100 mg PO DAILY06 01/15/14 [Last Taken 04/17/17] Montelukast Sodium [Singulair 10 mg (*)] 10 mg PO DAILY06 01/15/14 [Last Taken 04/17/17] Albuterol [Proventil Inhaler HFA (*)] 1 - 2 puffs IH Q4H PRN 03/13/17 [Last Taken Unknown] Cholecalciferol Vit D3 [Vitamin D3 (*)] 2,000 units PO DAILY 03/13/17 [Last Taken 04/17/17] Esomeprazole Mag Trihydrate [Nexium] 40 mg PO DAILY 03/13/17 [Last Taken ] Fluticasone Hfa 220 Mcg [Flovent 220 MCG Hfa MDI (*)] 1 puffs IH BID PRN [Last Taken 1 Week Ago ~04/11/17] Herbals/Supplements -Info Only 1 ea PO DAILY 03/13/17 [Last Taken 03/13/17] metFORMIN HCL [Metformin HCl ER] 500 mg PO DAILY 03/13/17 [Last Taken 04/17/17] Aspirin [Aspirin 325 mg (*)] 325 mg PO DAILY 03/24/17 [Last Taken 04/17/17] Halfway Antibiotics: ertapenem 1 g 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 PICC Care - Routine: Yes - Orders Isolation Type: Contact Isolation - Labs/Radiology CBC w/diff Date: 04/30/17 CMP Date: 04/30/17 Call or Fax Lab and Imaging Results to: Dr. Pollard, - Follow Up Care Current Providers and Referrals: José Arango MD [Medical Doctor] - follow up in 1 week Lilia Romero MD [Primary Care Provider] - As per Instructions Casa Pollard MD [Medical Doctor] - 05/02/17 1:30 pm
--- NOTE | 2017-04-26 16:46 | HOSPPROG ---
Hospitalist Progress Note Assessment/Plan: 72 yo F recurrent breast cellulitis and possible abscess. #Recurrent R breast abscess and breast/chest wall cellulitis due to GAS, MRSA, ESBL E Coli -wound vac in place -Vancomycin (dc 04/25) now on only Ertapenem -PICC in place # sepsis- (patient with leukocytosis fever at presentation)- source secondary to breast infection/abscess -fever and leukocytosis resolved -Blood cultures no growth #mild hyperkalemia -resolved #anorexia -improvig #loose stools per patient -c diff negative # Acute leukocytosis -resolved # HTN- continue home meds # pain- currently well controlled - cont prn IV meds # constipation - resolved # pre diabetes- blood sugar 86-122 - cont to hold metformin - cont SSI # proph - lovenox # dispo> 2MN as pt requires ongoing IV antibiotics and close monitoring #Plan: pending, will evaluate ultrasound. Dr Pollard and myself will round together on the patient on Saturday. Subjective: Mahnaz has a better appetite, she is concerned about discomfort on the outer edge of the right breast. Objective: Vital Signs Temp Pulse Resp BP Pulse Ox 36.9 C 82 18 156/90 H 94 04/26/17 15:46 04/26/17 15:46 04/26/17 15:46 04/26/17 15:46 04/26/17 15:46 Laboratory Results 04/23/17 05:05 04/25/17 06:25 04/25/17 04/26/17 04/27/17 05:59 05:59 05:59 Intake Total 742 300 Balance 742 300 PT 13.3 SEC (12.0-15.0) 04/18/17 09:50 INR 0.99 (0.83-1.16) 04/18/17 09:50 - Physical Exam Constitutional: no apparent distress, appears nourished Eyes: PERRL Ears, Nose, Mouth, Throat: hearing normal Cardiovascular: regular rate and rhythym Respiratory: no respiratory distress Gastrointestinal: normoactive bowel sounds Skin: warm, other (right breast area with little redness on outer edge) Musculoskeletal: full muscle strength Neurologic: AAOx3 Psychiatric: interacting appropriately ICD10 Worksheet Patient Problems: Problems Problem Status Onset Cellulitis Acute Cellulitis of right breast Acute Severe sepsis Acute
[2017-04-27] MEDS: ACETAMINOPHEN 500 MG TAB PO SCH ×3 (06:10→21:25)
[2017-04-27] MEDS: CETIRIZINE 10 MG TAB PO SCH (06:11)
[2017-04-27] MEDS: MONTELUKAST SODIUM 10 MG TAB PO SCH (06:11)
[2017-04-27] MEDS: ATENOLOL 25 MG TAB PO SCH (06:11)
[2017-04-27] MEDS: LOSARTAN POTASSIUM 50 MG TAB PO SCH (06:11)
[2017-04-27] MEDS: INSULIN LISPRO 100 UNIT/ML SC SCH ×3 (08:02→18:40)
[2017-04-27] MEDS: diphenhydrAMINE 25 MG CAP PO SCH (08:16)
[2017-04-27] MEDS: SENNOSIDES/DOCUSATE SODIUM TAB PO SCH ×2 (08:17→21:27)
[2017-04-27] MEDS: PANTOPRAZOLE SODIUM 40 MG TAB PO SCH (08:17)
[2017-04-27] MEDS: ENOXAPARIN 40 MG/0.4 ML SYR SC SCH (08:18)
[2017-04-27] MEDS: CHOLECALCIFEROL VIT D3 1,000 UNITS TAB PO SCH (08:18)
--- NOTE | 2017-04-27 08:40 | SOAPPROG ---
SOAP Progress Note Assessment/Plan: Assessment/Plan: 72 Y F s/p I&D R breast abscess, hx of excisional bx, infected hematoma [place] change MWF Appreciate hospitalists and ID US without fluid collections, improved inflammation IV antibiotics per ID Regular diet Ambulating independently Dispo: DC 1-[address] Berger S: feeling well this am, less tender to palpation O: laying in bed, comfortable, NAD breast warm. no erythema. less tender to palpation WV to suction Objective: Vital Signs Temp Pulse Resp BP Pulse Ox 36.8 C 74 16 113/55 L 91 L 04/27/17 07:41 04/27/17 07:41 04/27/17 07:41 04/27/17 07:41 04/27/17 07:41 Laboratory Results 04/23/17 05:05 04/25/17 06:25 04/26/17 04/27/17 04/28/17 05:59 05:59 05:59 Intake Total 300 250 Balance 300 250 PT 13.3 SEC (12.0-15.0) 04/18/17 09:50 INR 0.99 (0.83-1.16) 04/18/17 09:50 ICD10 Worksheet Patient Problems: Problems Problem Status Onset Cellulitis Acute Cellulitis of right breast Acute Severe sepsis Acute
[2017-04-27] MEDS: ERTAPENEM 1 GM VIAL IV SCH (09:20)
--- NOTE | 2017-04-27 12:50 | HOSPPROG ---
Hospitalist Progress Note Assessment/Plan: 72 yo F recurrent breast cellulitis and possible abscess. #Recurrent R breast abscess and breast/chest wall cellulitis due to GAS, MRSA, ESBL E Coli -wound vac in place -Vancomycin (dc 04/25) now on only Ertapenem -PICC in place -ultrasound stable # sepsis- (patient with leukocytosis fever at presentation)- source secondary to breast infection/abscess -fever and leukocytosis resolved -Blood cultures no growth #mild hyperkalemia -resolved #anorexia -improvig #loose stools per patient -c diff negative # Acute leukocytosis -resolved # HTN- continue home meds # pain- currently well controlled - cont prn IV meds # constipation - resolved # pre diabetes- blood sugar 86-122 - cont to hold metformin - cont SSI # proph - lovenox #Plan: Dr Pollard and myself met with Mahnaz together, she has ongoing tenderness in the right breast outer edge area. She will be here through the weekend and plan is to dc on Saturday. She will come to for antibiotics. Home care will do wound vac changes. She will need f/u with Dr Arango and Dr Pollard. Subjective: Mahnaz is c/o some tenderness in the right outer breast area. Objective: Vital Signs Temp Pulse Resp BP Pulse Ox 36.9 C 74 16 144/69 H 90 L 04/27/17 11:07 04/27/17 11:07 04/27/17 11:07 04/27/17 11:07 04/27/17 11:07 Laboratory Results 04/23/17 05:05 04/25/17 06:25 04/26/17 04/27/17 04/28/17 05:59 05:59 05:59 Intake Total 300 250 Balance 300 250 PT 13.3 SEC (12.0-15.0) 04/18/17 09:50 INR 0.99 (0.83-1.16) 04/18/17 09:50 - Physical Exam Constitutional: no apparent distress, appears nourished Eyes: PERRL Ears, Nose, Mouth, Throat: hearing normal Cardiovascular: regular rate and rhythym Respiratory: no respiratory distress Gastrointestinal: normoactive bowel sounds Skin: warm, other (right breast w wound vac in place, no significant redness or erythema noted, tendernes around outer edge of breast area) Musculoskeletal: full muscle strength Neurologic: AAOx3 Psychiatric: interacting appropriately ICD10 Worksheet Patient Problems: Problems Problem Status Onset Cellulitis Acute Cellulitis of right breast Acute Severe sepsis Acute
--- NOTE | 2017-04-27 13:22 | PCMIDPN ---
Assessment/Plan: Assessment/Plan: * Recurrent right breast infection status post incision and drainage: Marked clinical improvement post drainage with full resolution of cellulitis. Polymicrobial cultures with growth of group A Streptococcus, MRSA, and ESBL producing Klebsiella. Ultrasound shows no evidence of residual fluid collection. May have some pain and lateral breast related to impaired lymphatic drainage. Continue ertapenem through 05/03/2017 which will represent 2 weeks of therapy post drainage. 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 * Diarrhea: Resolved with negative C difficile PCR. Time spent, 25 min, of which greater than half was spent in education/counseling /coordination of care related to recurrent right breast abscess and plan of care. 04/27/17 13:20 Subjective: Patient complains of pain in right lateral breast and intermittent cough. Objective: Vital Signs Temp Pulse Resp BP Pulse Ox 36.9 C 74 16 144/69 H 90 L 04/27/17 11:07 04/27/17 11:07 04/27/17 11:07 04/27/17 11:07 04/27/17 11:07 Laboratory Results 04/23/17 05:05 04/25/17 06:25 04/26/17 04/27/17 04/28/17 05:59 05:59 05:59 Intake Total 300 250 Balance 300 250 Ertapenem # 8 - Physical Exam General Appearance: alert, no apparent distress Respiratory: lungs clear, No respiratory distress Cardiac/Chest: regular rate, rhythm, other (Right breast without residual erythema; mild to moderate tenderness right lateral chest wall without palpable fluctuance; wound VAC in place) ICD10 Worksheet Patient Problems: Problems Problem Status Onset Cellulitis Acute Cellulitis of right breast Acute Severe sepsis Acute
--- NOTE | 2017-04-27 17:38 | ASMTCMCOM ---
CM Note CM Note Notes: Met w/ pt to provide support. Pt doing ok, but admits these past few months have been challenging. Spoke w/ Dr. Pollard and Anneliese Le, ISI, pt not ready for discharge at this time. Pt still needs a wound vac. Per CM report, [facility] paperwork is complete and in the chart, pt will need to sign and CM will need to fax back to [facility] at time of d/c. Also per CM report, pt is set up with [facility] services for frequent dressing changes. CM will cont to follow. Current Discharge Plan: Home w/ [facility] (RN) and [facility] wound vac Date Signed: 04/27/2017 05:36 PM Electronically Signed By:Gabriella Del Cid RN
[2017-04-28] MEDS: ACETAMINOPHEN 500 MG TAB PO SCH ×3 (05:44→21:32)
[2017-04-28] MEDS: MONTELUKAST SODIUM 10 MG TAB PO SCH (05:44)
[2017-04-28] MEDS: ATENOLOL 25 MG TAB PO SCH (05:44)
[2017-04-28] MEDS: LOSARTAN POTASSIUM 50 MG TAB PO SCH (05:45)
[2017-04-28] MEDS: CETIRIZINE 10 MG TAB PO SCH (05:45)
[2017-04-28] MEDS: INSULIN LISPRO 100 UNIT/ML SC SCH ×3 (08:45→18:06)
[2017-04-28] MEDS: PANTOPRAZOLE SODIUM 40 MG TAB PO SCH (08:53)
[2017-04-28] MEDS: diphenhydrAMINE 25 MG CAP PO SCH (08:53)
[2017-04-28] MEDS: SENNOSIDES/DOCUSATE SODIUM TAB PO SCH ×2 (08:53→21:41)
[2017-04-28] MEDS: CHOLECALCIFEROL VIT D3 1,000 UNITS TAB PO SCH (08:54)
[2017-04-28] MEDS: ENOXAPARIN 40 MG/0.4 ML SYR SC SCH (08:54)
[2017-04-28] MEDS: ERTAPENEM 1 GM VIAL IV SCH (09:33)
--- NOTE | 2017-04-28 10:54 | SOAPPROG ---
SOAP Progress Note Assessment/Plan: Assessment/Plan: 72 Y F s/p I&D R breast abscess, hx of excisional bx, infected hematoma [place] change MWF while inpatient. Appreciate hospitalists and ID US without fluid collections, improved inflammation IV antibiotics per ID Regular diet Ambulating independently Dispo: DC tomorrow. [place] authorized per CM. Plan originally to have home care change vac MWF, but patient very uncomfortable with this plan given her complicated course and recurrent infections. Will try to coordinate vac changes with outpatient wound healing center if ID and Dr. Arango approve of this plan. S: feeling well this am. Having tenderness at 12:00. Spent significant amount of time expressing her concern about home care performing dressing changes, given her complicated course and recurrent infections. She would feel most comfortable having the dressings changed at the outpatient wound healing center with close follow-up by Dr. Arango and Dr. Pollard. O: laying in bed, comfortable, NAD breast less warm than yesterday. no erythema. tenderness to palpation stable - axillary tail WV to suction Objective: Vital Signs Temp Pulse Resp BP Pulse Ox 36.8 C 75 16 142/67 H 91 L 04/28/17 07:37 04/28/17 07:37 04/28/17 07:37 04/28/17 07:37 04/28/17 07:37 Laboratory Results 04/23/17 05:05 04/25/17 06:25 04/27/17 04/28/17 04/29/17 05:59 05:59 05:59 Intake Total 250 550 Balance 250 550 PT 13.3 SEC (12.0-15.0) 04/18/17 09:50 INR 0.99 (0.83-1.16) 04/18/17 09:50 ICD10 Worksheet Patient Problems: Problems Problem Status Onset Cellulitis Acute Cellulitis of right breast Acute Severe sepsis Acute
--- NOTE | 2017-04-28 11:27 | PCMIDPN ---
Assessment/Plan: Assessment/Plan: * Recurrent right breast infection status post incision and drainage: No residual inflammatory changes on breast exam. Continue ertapenem through 2017. Continue wound VAC under supervision of surgical service. Lateral breast pain improved today and will continue to be monitored. Recent ultrasound showed no residual inflammatory focus or fluid collection. Time spent, 25 min, of which greater than half was spent in education/counseling /coordination of care related to ongoing plan of care including wound care and IV antibiotic therapy. 04/28/17 11:24 Subjective: Patient with less pain in right lateral breast. Objective: Vital Signs Temp Pulse Resp BP Pulse Ox 36.8 C 75 16 142/67 H 91 L 04/28/17 07:37 04/28/17 07:37 04/28/17 07:37 04/28/17 07:37 04/28/17 07:37 Laboratory Results 04/23/17 05:05 04/25/17 06:25 04/27/17 04/28/17 04/29/17 05:59 05:59 05:59 Intake Total 250 550 Balance 250 550 Ertapenem # 9 - Physical Exam General Appearance: alert, no apparent distress EENT: No thrush Cardiac/Chest: other (Right breast without residual erythema or tenderness; right lateral breast without focal tenderness; wound VAC in place) Abdomen: non-tender, No distended - Line/s LUE PICC Lines: No drainage, No erythema ICD10 Worksheet Patient Problems: Problems Problem Status Onset Cellulitis Acute Cellulitis of right breast Acute Severe sepsis Acute
--- NOTE | 2017-04-28 12:25 | HOSPPROG ---
Hospitalist Progress Note Assessment/Plan: 72-year-old with a history of breast cancer status post lumpectomy complicated by right breast abscess. Is readmitted with cellulitis and worsening abscess. #Recurrent R breast abscess and breast/chest wall cellulitis due to GAS, MRSA, ESBL E Coli * Wound VAC in place to be managed by Dr. Arango as an outpatient, will work on possibility of wound care clinic as well * Continue Invanz through May 03 * She will follow up both with Dr. Arango and Dr. Pollard as an outpatient * Likely discharge tomorrow once her wound VAC is in place # sepsis- (patient with leukocytosis fever at presentation)- source secondary to breast infection/abscess * Resolved, negative blood cultures # electrolyte abnormalities, resolved # HTN- continue home meds, slightly elevated during this hospitalization likely multifactorial due to her acute illness and stress. Will follow up with Dr. Romero as an outpatient for rechecks. # pain- currently well controlled * cont prn IV meds # constipation - resolved # pre diabetes- blood sugar 86-122 * Resume metformin on discharge # rad: Likely because of her mild cough. Lungs are clear, will prescribe duo nebs as needed. # proph - lovenox Subjective: Has a history of asthma and would like to try DuoNeb. It has helped her in the past. Pain is well controlled. Patient new to me and chart reviewed Objective: Vital Signs Temp Pulse Resp BP Pulse Ox 36.8 C 71 16 139/75 H 92 04/28/17 12:00 04/28/17 12:00 04/28/17 12:00 04/28/17 12:00 04/28/17 12:00 Laboratory Results 04/23/17 05:05 04/25/17 06:25 04/27/17 04/28/17 04/29/17 05:59 05:59 05:59 Intake Total 250 550 Balance 250 550 PT 13.3 SEC (12.0-15.0) 04/18/17 09:50 INR 0.99 (0.83-1.16) 04/18/17 09:50 - Physical Exam Constitutional: no apparent distress, appears nourished Eyes: PERRL, anicteric sclera, EOMI Ears, Nose, Mouth, Throat: moist mucous membranes Cardiovascular: regular rate and rhythym, no murmur, rub, or gallop Respiratory: no respiratory distress, clear to auscultation Gastrointestinal: normoactive bowel sounds, soft, non-tender abdomen Skin: warm, no fluctuance, other (Wound VAC on right breast with minimal erythema superior to that no significant lymphadenopathy slight tenderness to palpation) Musculoskeletal: no muscle tenderness Neurologic: AAOx3 Psychiatric: interacting appropriately ICD10 Worksheet Patient Problems: Problems Problem Status Onset Cellulitis Acute Cellulitis of right breast Acute Severe sepsis Acute
[2017-04-28] MEDS: IPRATROPIUM/ALBUTEROL 3 ML DEYVIAL IH PRN ×2 (12:36→21:00)
[2017-04-28] MEDS ORDERED: HYDROmorphONE/DILAUDID 1 MG/ML INJ IVP PRN (12:44)
--- NOTE | 2017-04-28 14:39 | ASMTCMCOM ---
CM Note CM Note Notes: CM spoke w/ PEPE Francis regarding d/c POC. Madeline reports that pt may benefit from outpatient wound care vs home w/ HC, RN. CM met w/ pt for dispo planning. Pt would like CM to hold off on making any appointments for the time being. The original plan is for pt to d/c w/ outpatient infusion with KITTY, RN to manage wound. However, plan can change. CM to follow. Plan: TBD Date Signed: 04/28/2017 02:38 PM Electronically Signed By:KAYLA Shaw
[2017-04-28] MEDS: FLUTICASONE HFA 220 MCG MDI IH SCH (21:04)
[2017-04-29] MEDS: ACETAMINOPHEN 500 MG TAB PO SCH (05:23)
[2017-04-29] MEDS: LOSARTAN POTASSIUM 50 MG TAB PO SCH (05:23)
[2017-04-29] MEDS: ATENOLOL 25 MG TAB PO SCH (05:24)
[2017-04-29] MEDS: MONTELUKAST SODIUM 10 MG TAB PO SCH (05:24)
[2017-04-29] MEDS: CETIRIZINE 10 MG TAB PO SCH (05:24)
[2017-04-29 05:42] LABS: PLATELET COUNT 405 10^3/uL (150-400)
[2017-04-29] MEDS: INSULIN LISPRO 100 UNIT/ML SC SCH ×2 (08:10→12:59)
[2017-04-29 08:11] VITALS: TEMP 98.2
[2017-04-29] MEDS: CHOLECALCIFEROL VIT D3 1,000 UNITS TAB PO SCH (08:36)
[2017-04-29] MEDS: PANTOPRAZOLE SODIUM 40 MG TAB PO SCH (08:36)
[2017-04-29] MEDS: diphenhydrAMINE 25 MG CAP PO SCH (08:36)
[2017-04-29] MEDS: SENNOSIDES/DOCUSATE SODIUM TAB PO SCH (08:39)
[2017-04-29] MEDS: IPRATROPIUM/ALBUTEROL 3 ML DEYVIAL IH PRN ×2 (09:05→15:37)
[2017-04-29] MEDS: FLUTICASONE HFA 220 MCG MDI IH SCH (09:05)
[2017-04-29] MEDS: ERTAPENEM 1 GM VIAL IV SCH (09:44)
--- NOTE | 2017-04-29 10:10 | SOAPPROG ---
SOAP Progress Note Assessment/Plan: Assessment/Plan: 72 Y F s/p I&D R breast abscess, hx of excisional bx, infected hematoma S: Concerned with plan to have home care change wound vac given her history of recurrent infection. Pt wondering if she would be able to be seen by wound care 3x per week. Still has pain in the 12 O'clock position. O: Afebrile. Tissue around wound soft and dry. No erythema appreciated. Wound to vac suction. Minimal discharge. Plan: Plan for discharge today. Wound vac change before discharge. We will plan on changing the wound vac sponges in the office 3x per week. No need for home care with new plan. Pt seen with Dr. Arango. 04/29/17 10:05 Objective: Vital Signs Temp Pulse Resp BP Pulse Ox 36.8 C 77 12 96/64 L 94 04/29/17 08:00 04/29/17 09:08 04/29/17 09:08 04/29/17 08:00 04/29/17 09:08 Laboratory Results 04/29/17 05:25 04/29/17 05:25 04/28/17 04/29/17 04/30/17 05:59 05:59 05:59 Intake Total 550 1600 Balance 550 1600 PT 13.3 SEC (12.0-15.0) 04/18/17 09:50 INR 0.99 (0.83-1.16) 04/18/17 09:50 ICD10 Worksheet Patient Problems: Problems Problem Status Onset Cellulitis Acute Cellulitis of right breast Acute Severe sepsis Acute
[2017-04-29 11:59] VITALS: BP 132/69
[2017-04-29] MEDS ORDERED: LORazepam 2 MG/ML INJ IVP ONE (12:22)
--- NOTE | 2017-04-29 12:23 | SOAPPROG ---
SOAP Progress Note Assessment/Plan: Assessment: 72 FEMALE WITH BREAST ABSCESS BEING TREATED AT WOUND CENTER NOW WITH FLORID CELLULITIS AND DRAINAGE WITH FEVER AND CHILLS AND ELEVATED WBC PT DESCRIBES INCREASING INDURATION AND PAIN WB Plan:START ABX/ MAY NEED I&D/ WILL RECHECK IN AM 04/19/17 08:02 04/20/17 12:37 FEELS GREAT/AFEBRILE/WOUND VAC MINIMAL DRAINAGE/ERYTHEMA RESOLVING/PAIN MUCH BETTER CONTROL 04/21/17 13:38 Stable vital signs/afebrile/breast erythema and resolving/pain is improved/ minimal wound VAC output Plan is wound VAC change in the a.m./continue antibiotics 04/29/17 12:22 Afebrile/comfortable/erythema resolved/breast nontender/ Plan home today with wound VAC pending VAC change today and follow up as an outpatient Objective: Vital Signs Temp Pulse Resp BP Pulse Ox 36.8 C 80 16 132/69 H 93 04/29/17 11:53 04/29/17 11:53 04/29/17 11:53 04/29/17 11:53 04/29/17 11:53 Laboratory Results 04/29/17 05:25 04/29/17 05:25 04/28/17 04/29/17 04/30/17 05:59 05:59 05:59 Intake Total 550 1600 Balance 550 1600 PT 13.3 SEC (12.0-15.0) 04/18/17 09:50 INR 0.99 (0.83-1.16) 04/18/17 09:50 ICD10 Worksheet Patient Problems: Problems Problem Status Onset Cellulitis Acute Cellulitis of right breast Acute Severe sepsis Acute
[2017-04-29] MEDS: ENOXAPARIN 40 MG/0.4 ML SYR SC SCH (12:59)
--- NOTE | 2017-04-29 13:23 | GDS ---
[f rep st] DISCHARGE SUMMARY DIAGNOSES: 1. Recurrent breast abscess status post lumpectomy. 2. History of breast cancer. 3. Hypertension. 4. Asthma. CONSULTATIONS: Dr. José Arango, Surgery; Dr. Casa Pollard, Infectious Disease; Wound Care. PROCEDURES DONE: 1. PICC line placement. 2. Breast ultrasound. 3. Right partial mastectomy and resection of abscess cavity on 04/19/[address] Arango. 4. Followup breast ultrasound. Significant improvement in the appearance of right breast from previ ous examination. HOSPITAL COURSE: The patient is a 72-year-old with a history of breast cancer undergoing right lumpe ctomy in January. This was complicated by an abscess formation in February that was treated with ap propriate antibiotics and wound care. However, her abscess did worsen during this time, and she was readmitted for worsening abscess and cellulitis. She was placed on appropriate antibiotics. Dr. Bhupinder deng consulted and took her to the OR on April 19, with the above procedure done preop. Since that time, she has slowly improved significantly. She has had a wound VAC in place and has been followed closely by Wound Care. At the time of discharge, her wound looks good. She does continue to have s ome tenderness around the wound. However, the erythema is almost completely resolved, and there is n o fluctuance noted on exam. Other issues that have been followed during her stay include diabetes. Her medications have been held, and she has been on an insulin sliding scale. She will resume her us ual medications on discharge. She also has mildly elevated blood pressures during her stay. I suspe ct this is from her acute illness, and they will likely improve over time. She will continue her usu al blood pressure medications. She also had a mild asthma exacerbation, likely due to the general an esthesia, and that has been treated with some nebulizers and resumption of her steroid inhaler. I wi ll send her home with a few nebulizers to use, and she will follow up with Dr. Romero on an as-needed basis. CONDITION ON DISCHARGE: Good. PHYSICAL EXAMINATION: She has been afebrile. Heart rate 80, blood pressure today 132/69, respiratio ns 16. She is 93% on room air. She is alert and oriented. Her right breast has a wound VAC in plac e. She has very minimal erythema noted, but some tenderness on the superior margins of her wound. DISCHARGE MEDICATIONS: Please see discharge medication form. FOLLOWUP INSTRUCTIONS: She is to follow up with Dr. Pollard's office. She will follow up with Dr. Antonino dimas 3 times a week for wound VAC changes, and she should follow up with Dr. Romero in 2-3 weeks, sooner for any acute issues not addressed by the above providers. Total time spent with patient on day of discharge and coordination of care is 35 minutes. /[id number]/MODL
--- NOTE | 2017-04-29 13:41 | WOCRNPDOC ---
WOCRN Advanced Assessment Note - Skin Integrity Problem, Advanced Assess Right Chest Dressing Type: Black Vac Foam (x1), Wound Vac Dressing Description: Clean/Dry, Intact Exudate Amount: None Integumentary Issue Intervention: Dressing Changed Wound Bed Constitution: Granulation Tissue (70%), Undermining (from 11-1 oclock 3.6 cm ), Subcutaneous Fat (30% (some areas of minimal necrosis within)) Site Measurement - Head-to-Toe Length X Width X Depth (cm): 3.3x6.2x1.8 Skin Integrity Problem Comment: Flushed with ns. Drape andrés wound and x2 pieces of black simplace foam after applying 1 ml of 4% topical lidocaine. Patient tolerated procedure well with no complaints. Home vac reviewed as well as wound care plan and care of dressing and vac at home. All questions answered. Dr. Arango and team visualized wound bed. Mimi GARZA assisted. Next vac change due Wed 05/01.
--- NOTE | 2017-04-29 15:23 | GCON ---
[f rep st] CONSULTATION DATE OF CONSULTATION: 04/18/2017 HISTORY OF PRESENT ILLNESS: A 72-year-old female who has been followed in the wound clinic for a rig ht breast abscess. She has had previous right breast cancers with double lumpectomies and radiation treatment. She had a recent biopsy which resulted in a hematoma, which then resulted in a drainage p rocedure and then an infection. She presents now with a high fever, early sepsis, marked erythema, a nd tenderness and induration throughout her entire right breast. Wound VAC from the wound clinic was in place, but upon removal there was a gush of purulent material, and no good granulation tissue see n in the wound base. PAST MEDICAL HISTORY: Includes breast cancer in 2008 with double lumpectomies. She has had a recent breast abscess and hematoma. She has type 2 diabetes, history of a previous pulmonary embolus, high blood pressure. She also had an appendectomy, tonsillectomy, knee scope, , RSD from a trau matic wound, a shoulder repair, hypertension. ALLERGIES: Penicillin, meperidine, Levaquin, oxycodone, epinephrine, chloramphenicol. PRESENT MEDICATIONS: Albuterol, vitamin D, omeprazole, Flovent, Flonase, losartan, aspirin, atenolol , cetirizine, metformin, and montelukast. REVIEW OF SYSTEMS: Negative on a full 10-point review of systems, except as related to the HPI and p ast history. Specifically, she does not smoke and denies any cardiac history. PHYSICAL EXAMINATION: GENERAL: Alert, concerned, 72-year-old female, who is in no acute distress, c urrently afebrile. HEENT: Without adenopathy or icterus or oral lesions. CHEST: Clear. CARDIAC: Regular rhythm. ABDOMEN: Soft. BREASTS: Indurated, erythematous right breast, with an open wound which has purulent drainage and no good granulation tissue. EXTREMITIES: Benign, with full range o f motion. Full pulses. NEUROLOGIC: Symmetric and physiologic. PSYCH: Alert, oriented, and teddy ative. IMPRESSION: Recurrent right breast abscess. RECOMMENDATIONS: Would be wet-to-dry packing for now, surgical debridement, and then a wound VAC ayde cement. Risks and options have been fully discussed and she wishes to proceed. /[id number]/MODL
[2017-04-29 15:49] VITALS: PULSE 87; RESP 18; O2SAT 95
== END 2017-04-29 16:19 | disposition home or self-care (01) | DRG 855 ==
LOC: EEVIPCON 09:19 → OBSVTOIN 10:56 → F1N 12:14 → F3E 04-19 15:42
PROVIDERS: ADMIT Internal Medicine; ATTEND Internal Medicine Infectious Disease
PROC: 02HV33Z Insertion of Infusion Device into Superior Vena Cava, Percutaneous Approach (ICD-10-PCS; 2017-04-19 14:30)
PROC: 0HBT0ZZ Excision of Right Breast, Open Approach (ICD-10-PCS; principal; 2017-04-20)
DX: A41.02 Sepsis due to Methicillin resistant Staphylococcus aureus (principal); N61.1 Abscess of the breast and nipple; N64.1 Fat necrosis of breast; E87.5 Hyperkalemia; R19.7 Diarrhea, unspecified; Z85.3 Personal history of malignant neoplasm of breast; B95.62 Methicillin resistant Staphylococcus aureus infection as the cause of diseases classified elsewhere; B96.1 Klebsiella pneumoniae [K. pneumoniae] as the cause of diseases classified elsewhere; B96.20 Unspecified Escherichia coli [E. coli] as the cause of diseases classified elsewhere; I10 Essential (primary) hypertension; E11.9 Type 2 diabetes mellitus without complications; J45.909 Unspecified asthma, uncomplicated; Z92.3 Personal history of irradiation; Z86.711 Personal history of pulmonary embolism
CPT/HCPCS: 96365; C1751; J1100; J1170; J1335; J1650; J1885; J2060; J2250; J2370; J2405; J2704; J2997; J3010; J3370

== ENCOUNTER 2017-05-07 11:57 | Emergency (ER) | payer OTHER, MEDICARE ==
[2017-05-07 12:07] VITALS: O2SAT 94
--- NOTE | 2017-05-07 12:37 | EDPHY ---
H & P Stated Complaint: R breast infection - Personal History Current Tetanus/Diphtheria Vaccine: Yes Current Tetanus Diphtheria and Acellular Pertussis (TDAP): Yes - Medical/Surgical History Hx Asthma: Yes Hx Chronic Respiratory Disease: No Hx Diabetes: Yes Hx Cardiac Disease: No Hx Renal Disease: No Hx Cirrhosis: No Hx Alcoholism: No Hx HIV/AIDS: No Hx Splenectomy or Spleen Trauma: No Other PMH: Asthma, prediabetes, breast CA - lumpectomy r side, - Social History Smoking Status: Never smoked Time Seen by Provider: 05/07/17 12:23 HPI/ROS: CHIEF COMPLAINT: "My breast infection is back" HISTORY OF PRESENT ILLNESS: 72-year-old female with history of right breast cancer, right breast excisional biopsy with subsequent development of hematoma, abscess, cellulitis. History of recent hospitalization for similar with VAC placement. She is in the ER stating that for the past few days she has noticed progressive erythema and peau d'orange appearance of the right breast. Positive nausea. No fever no chills. No vomiting. No back or flank pain. Patient contacted Dr. Casa Pollard her infectious disease doctor who recommend she come to the ER and is planning on meeting her in the ER 1:00 p.m.. REVIEW OF SYSTEMS: A ten point review of systems was performed and is negative with the exception of the items mentioned in the HPI PAST MEDICAL & SURGICAL HISTORY: Right breast cancer, right breast abscess, cellulitis. Diabetes. 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 Appears nontoxic. 2) HEAD: Normocephalic, atraumatic 3) HEENT: Pupils equal, round, reactive to light bilaterally. Sclera anicteric. 4) NECK: Full range of motion, no meningeal signs. 5) LUNGS: Clear auscultation bilaterally, no wheezes, no rhonchi, no retractions. 6) HEART (breast exam with nurse Camryn at bedside): Regular rate and rhythm, no murmur, no heave, no gallop. Right breast VAC in place. There is faint erythema . No fetid odor 7) ABDOMEN: No guarding, no rebound, no focal tenderness, negative McBurney's, negative Lutz's, negative Rovsing's, negative peritoneal sign, 8) MUSCULOSKELETAL: Moving all extremities, no focal areas of tenderness, no obvious trauma. No peripheral edema or discoloration. 9) BACK: No CVA tenderness, no midline vertebral tenderness, no fluctuance, no step-off, no obvious trauma, no visual or palpable abnormality. 10) SKIN: No rash, no petechiae. 11) Psychiatric: Patient is oriented X 3, there is no agitation. DIFFERENTIAL DIAGNOSIS: In no particular abscess including but not limited to return abscess, cellulitis, sepsis (Sheron Morrison) Constitutional: Initial Vital Signs Temperature (C) 36.9 C 05/07/17 12:04 Heart Rate 77 05/07/17 12:04 Respiratory Rate 16 05/07/17 12:04 Blood Pressure 123/90 H 05/07/17 12:04 O2 Sat (%) 94 05/07/17 12:04 O2 Delivery Mode Room Air Allergies/Adverse Reactions: Penicillins Allergy (Severe, Verified 03/13/17 16:34) THROAT SWELLING meperidine HCl [From Demerol] Allergy (Intermediate, Verified 03/11/17 21:27) TACHYCARDIC levofloxacin [From Levaquin] Allergy (Mild, Verified 03/11/17 21:27) "COULDNT STAND UP - NO STRENGTH" oxycodone [From Percocet] Allergy (Mild, Verified 03/13/17 16:34) Other-Enter Comments epinephrine [Epinephrine] Allergy (Unknown, Verified 03/11/17 21:27) TACHYCARDIC chloramphenicol [From Chloromycetin] Allergy (Verified 04/18/17 09:31) Home Medications: Medication Instructions Recorded Atenolol [Tenormin 50 mg (*)] 25 mg PO DAILY06 01/15/14 CETIRIZINE HCL [ZYRTEC] 10 mg PO DAILY06 01/15/14 Fluticasone Nasal [Flonase Nasal 1 sprays NASAL DAILY PRN 01/15/14 [place]] Losartan Potassium [Cozaar] 100 mg PO DAILY06 01/15/14 Montelukast Sodium [Singulair 10 10 mg PO DAILY06 01/15/14 mg (*)] Albuterol [Proventil Inhaler HFA 1 - 2 puffs IH Q4H PRN 03/13/17 (*)] Cholecalciferol Vit D3 [Vitamin D3 2,000 units PO DAILY 03/13/17 (*)] Esomeprazole Mag Trihydrate 40 mg PO DAILY 03/13/17 [Nexium] Fluticasone Hfa 220 Mcg [Flovent 1 puffs IH BID PRN 03/13/17 220 MCG Hfa MDI (*)] Herbals/Supplements -Info Only 1 ea PO DAILY 03/13/17 metFORMIN HCL [Metformin HCl ER] 500 mg PO DAILY 03/13/17 Aspirin [Aspirin 325 mg (*)] 325 mg PO DAILY 03/24/17 Ertapenem [INVanz] 1 gm IV DAILY vial 04/29/17 Ipratropium/Albuterol [Duoneb (*)] 3 ml IH Q6HRS PRN #30 deyvial 04/29/17 Medical Decision Making ED Course/Re-evaluation: 12:30 p.m.: Have reviewed the patient's medical records. Patient informs me that she spoke with Dr. Casa Pollard and that he is coming to the ER to see her at approximately 1:00 p.m.. Will obtain laboratory studies in the meantime. Care of patient under supervision of secondary supervising physician Dr Perlita Barton. 1:37 p.m.: Phone consultation with Dr. Casa Pollard who will come to the ER to evaluate patient. Dr. Casa Pollard informs me that he did not speak with the patient nor was informed that she was in the emergency department, however he will come to the ER to consult with patient. 2:05 p.m.: Dr. Casa Pollard in the ER to see patient. 2:43 p.m.: Dr. Casa Pollard has seen the patient, he recommended a dose of Invanz in the ER and the patient will keep her appointment with him tomorrow at 10:30 a.m.. 3:43 p.m.: Patient was re-evaluated. She has completed her Invanz and inquired whether she feels comfortable being discharged home. Although I do not think that emergent surgical consultation by Dr. Reyes Arango is indicated I did offer to speak with him and the patient declines this. She informs me that she has an appoint with Dr. Reji Arango tomorrow afternoon she would prefer to go home get some rest and follow up with Dr. Casa Pollard and Dr. Reji Arango tomorrow. (Sheron Morrison) Other Provider: The patient was evaluated and managed by the Physician Finance Associate. I discussed the patient's presentation and course with the midlevel provider with them and agree with the evaluation. My co-signature indicates that I have reviewed this chart and I agree with the findings and plan of care as documented. I am the secondary supervising physician. (Perlita Barton) - Data Points Laboratory Results: Laboratory Results 05/07/17 12:20 05/07/17 12:20 Microbiology Results: MICROBIOLOGY 05/07/17 12:50 Blood Blood Culture - Preliminary 05/07/17 12:20 Blood Blood Culture - Preliminary Medications Given: Discontinued Medications Diphenhydramine HCl (Benadryl) 25 mg PO EDNOW ONE Stop: 05/07/17 15:58 Last Admin: 05/07/17 16:05 Dose: 25 mg Ertapenem (Invanz) 1 gm IV EDNOW ONE PRN Reason: Protocol Stop: 05/07/17 14:36 Last Admin: 05/07/17 15:13 Dose: 1 gm Departure - Departure Disposition: Home, Routine, Self-Care Clinical Impression: Abscess of right breast Condition: Good Instructions: Abscess (ED) Additional Instructions: Return to the ER if you develop fever, chills, nausea, vomiting or any other symptoms that concern you. Otherwise please keep your appointment with Dr. Casa Pollard tomorrow morning at 10:30 a.m.. Referrals: Casa Pollard MD [Primary Care Provider] - 05/08/17 10:30 am (Keep your appointment with Dr. Casa Pollard tomorrow morning at 10:30 a.m.)
[2017-05-07 12:48] LABS: PLATELET COUNT 478 10^3/uL (150-400)
[2017-05-07 13:02] LABS: INR 0.98 (0.83-1.16); PROTIME(PATIENT) 13.2 SEC (12.0-15.0)
[2017-05-07] MEDS ORDERED: ERTAPENEM 1 GM VIAL IV ONE (14:35)
--- NOTE | 2017-05-07 15:02 | PDCONSULT ---
Hand Molder Meat Note: * Right breast abscess/cellulitis: Faint erythema over right breast some of which represents contact dermatitis from Tegaderm for used with wound VAC. Unclear that recurrent infection present although patient notes significant malaise similar to that which she experienced previously. Mild increase in white blood cell count but not significantly left-shifted. Will give single dose of Invanz in ED today and patient has scheduled follow-up with me in office tomorrow at 10:30 a.m.. Will reassess at that point in time to ensure no clinical evolution. May have some element of lymphedema in right breast contributing related to prior breast cancer and recurrent infection. Will follow up blood cultures over time. Advised to notify me for any worsening symptoms. Time spent, 25 min, of which greater than half was spent in coordination of care related to right breast abscess/cellulitis and current symptom complex as well as plan of care. Patient called my office earlier today and spoke to our nurse regarding concerns about increasing right breast pain and erythema as well as malaise and chills. Advised to go to emergency department. Now further evaluated by me in emergency department. Does not complain of rigors. No fever. Mild diarrhea which remains limited. Describes having chills and evening. Feels like right breast is more erythematous and tender. Saw Dr. Arango yesterday and noted to have less granulation tissue than prior in wound bed. Physical exam: General: Well-nourished, well-developed in no acute distress. Appears nontoxic. Breast: Right breast with some irritant erythema superior to current Tegaderm; lateral portion of breast with faint erythema with mild warmth and tenderness. Wound VAC in place centrally. No induration or palpable fluctuance. Abdomen: Soft, nontender, nondistended. Laboratory Tests 05/07/17 05/07/17 05/07/17 12:20 12:20 12:50 WBC 10.84 H Plt Count 478 H Neut % (Auto) 55.9 Lymph % (Auto) 27.7 [place] % (Auto) 10.1 VBG Lactic Acid 1.8 Creatinine 0.8
[2017-05-07] MEDS ORDERED: diphenhydrAMINE 25 MG CAP PO ONE ×2 (15:57)
[2017-05-07 16:06] VITALS: BP 159/81; PULSE 71; RESP 18; TEMP 98.2
== END 2017-05-07 16:17 | disposition home or self-care (01) ==
LOC: EEVIPCON 11:57
DX: N61.1 Abscess of the breast and nipple (principal); J45.909 Unspecified asthma, uncomplicated; E11.9 Type 2 diabetes mellitus without complications; Z79.82 Long term (current) use of aspirin; Z79.84 Long term (current) use of oral hypoglycemic drugs; Z85.3 Personal history of malignant neoplasm of breast
CPT/HCPCS: 96374; 99284; J1335

== ENCOUNTER 2017-05-08 12:03 | Inpatient (IN) | payer OTHER, MEDICARE ==
[2017-05-08] MEDS ORDERED: ERTAPENEM 1 GM VIAL IV ONE (13:43)
--- NOTE | 2017-05-08 13:53 | PDHPUP ---
History & Physical Update H&P update statement: This history and physical update is based on an assessment of the patient which was completed after admission or registration (within 24 hours), but prior to the surgery/procedure.
--- NOTE | 2017-05-08 14:05 | PDANEPAE ---
ANE History of Present Illness 72 year old female presents for I&D of breast with wound vac placement. ANE Past Medical History - Cardiovascular History Hx Hypertension: Yes Hx Arrhythmias: No Hx Chest Pain: No Hx Coronary Artery / Peripheral Vascular Disease: No Hx CHF / Valvular Disease: No Hx Palpitations: No Cardiovascular History Comment: AORTIC REGURITATION. HX PVC'S,SINUS TACH - Pulmonary History Hx COPD: No Hx Asthma/Reactive Airway Disease: Yes Hx Oxygen in Use at Home: No Hx Sleep Apnea: No Pulmonary History Comment: ASTHMA TRIGGERS VIRUS. PE 1982. probable sleep apnea, requiring O2 recently - Neurologic History Hx Cerebrovascular Accident: No Hx Seizures: No Hx Dementia: No - Endocrine History Hx Diabetes: Yes Hypothyroid: No Hyperthyroid: No Endocrine History Comment: NIDDM (patient reports pre-diabetes on metformin) - Renal History Hx Renal Disorders: No - Liver History Hx Hepatic Disorders: No - Neurological & Psychiatric Hx Hx Neurological and Psychiatric Disorders: No - Cancer History Hx Cancer: Yes Cancer History Comment: BREAST POST LYMPHEDEMA - Congenital Disorder History Hx Congenital Disorders: No - GI History Hx Gastrointestinal Disorders: Yes Gastrointestinal History Comment: REFLUX - Other Health History Other Health History: RT LEG RELLEX SYMPATHETIC DYSTROPHY. CHRONIC SINUS - Chronic Pain History Chronic Pain: Yes (RT BREAST) - Surgical History Prior Surgeries: RT BREAST LUMPECTOMY 01/29/2017 DEVELOPED POST HEMATOMA. RT EYE VITRECTOMY 04/2014. RT BREAST LUMPECTOMY. RT KNEE SCOPE. RT SHLDR SCOPE. LT ARM ORIF. APPENDECTOMY ANE Review of Systems Review of systems is: negative Review of Systems: - Exercise capacity Exercise capacity: <4 METS ANE Patient History - Allergies Allergies/Adverse Reactions: Penicillins Allergy (Severe, Verified 03/13/17 16:34) THROAT SWELLING meperidine HCl [From Demerol] Allergy (Intermediate, Verified 03/11/17 21:27) TACHYCARDIC levofloxacin [From Levaquin] Allergy (Mild, Verified 03/11/17 21:27) "COULDNT STAND UP - NO STRENGTH" oxycodone [From Percocet] Allergy (Mild, Verified 03/13/17 16:34) Other-Enter Comments epinephrine [Epinephrine] Allergy (Unknown, Verified 03/11/17 21:27) TACHYCARDIC chloramphenicol [From Chloromycetin] Allergy (Verified 04/18/17 09:31) - Home Medications Home medications: home medication list seen and reviewed Home Medications: Atenolol [Tenormin 50 mg (*)] 25 mg PO DAILY06 01/15/14 [Last Taken 05/08/17 08: 30] CETIRIZINE HCL [ZYRTEC] 10 mg PO DAILY06 01/15/14 [Last Taken 05/06/17] Fluticasone Nasal [Flonase Nasal [place]] 1 sprays NASAL DAILY PRN 01/15/14 [Last Taken 05/08/17] Losartan Potassium [Cozaar] 100 mg PO DAILY06 01/15/14 [Last Taken 05/08/17 08: 30] Montelukast Sodium [Singulair 10 mg (*)] 10 mg PO DAILY06 01/15/14 [Last Taken 05/08/17 08:30] Albuterol [Proventil Inhaler HFA (*)] 1 - 2 puffs IH Q4H PRN 03/13/17 [Last Taken Unknown] Cholecalciferol Vit D3 [Vitamin D3 (*)] 2,000 units PO DAILY 03/13/17 [Last Taken 05/07/17] Esomeprazole Mag Trihydrate [Nexium] 40 mg PO DAILY 03/13/17 [Last Taken 08:30] Fluticasone Hfa 220 Mcg [Flovent 220 MCG Hfa MDI (*)] 1 puffs IH BID PRN [Last Taken 05/07/17] Herbals/Supplements -Info Only 1 ea PO DAILY 03/13/17 [Last Taken 03/13/17] metFORMIN HCL [Metformin HCl ER] 500 mg PO DAILY 03/13/17 [Last Taken 05/08/17 08:30] Aspirin [Aspirin 325 mg (*)] 325 mg PO DAILY 03/24/17 [Last Taken 05/07/17] - NPO status NPO Since - Liquids (Date): 05/08/17 (Light meal completed at 8am. Proceed at 2pm) NPO Since - Liquids (Time): 07:30 NPO Since - Solids (Date): 05/08/17 NPO Since - Solids (Time): 07:30 - Anes Hx Anes Hx: no prior problems - Smoking Hx Smoking Status: Never smoked Marijuana use: No - Alcohol Use Alcohol Use: Rarely - Family Anes Hx Family Anes Hx: neg - N/A ANE Labs/Vital Signs - Vital Signs Vital Signs: reviewed preoperatively; see RN documention for details Blood Pressure: 108/69 Heart Rate: 77 Respiratory Rate: 17 O2 Sat (%): 93 Height: 172.72 cm Weight: 200 kg ANE Physical Exam - Airway Neck exam: FROM Mallampati Score: Class 2 Mouth exam: poor dentition - Pulmonary Pulmonary: no respiratory distress - Cardiovascular Cardiovascular: regular rate and rhythym - ASA Status ASA Status: III ANE Anesthesia Plan Anesthesia Plan: general endotracheal anesthesia Specialized Airway: video laryngoscope Total IV Anesthesia: No
[2017-05-08] MEDS ORDERED: PROPOFOL 200 MG/20 ML VIAL ONE (14:09)
[2017-05-08] MEDS ORDERED: fentaNYL 100 MCG/2 ML INJ ONE ×2 (14:09→15:40)
[2017-05-08] MEDS ORDERED: ONDANSETRON 4 MG/2 ML VIAL ONE (14:37)
[2017-05-08] MEDS ORDERED: PHENYLEPHRINE HCL 100 MCG/ML SYR ONE (14:37)
[2017-05-08] MEDS ORDERED: LIDOCAINE 2% 5 ML SDV ONE (14:37)
[2017-05-08] MEDS ORDERED: ROCURONIUM 50 MG/5 ML VIAL ONE (14:37)
[2017-05-08] MEDS ORDERED: DEXAMETHASONE 4 MG/ML VIAL ONE (14:37)
[2017-05-08] MEDS ORDERED: SUGAMMADEX SODIUM 200 MG/2 ML VIAL IVP ONE (15:13)
--- NOTE | 2017-05-08 15:30 | POSTOPPROG ---
Post Op Note Date of Operation: 05/08/17 Surgeon: José Arango Heavy Lift Rigger: Lia Anesthesiologist: Navi Anesthesia: GET(General Endotracheal) Pre-op Diagnosis: Right breast abscess Post-op Diagnosis: same Indication: Increased pain and induration Procedure: R breast I&D with culture Findings: No new abscess or purulent fluid seen Inf/Abcess present in the surg proc area at time of surgery?: No EBL: Minimal Specimen(s): Right breast tissue for culture
[2017-05-08] MEDS ORDERED: ONDANSETRON 4 MG/2 ML VIAL IVP PRN ×2 (15:38→16:13)
[2017-05-08] MEDS ORDERED: NALOXONE HCL 0.4 MG/ML INJ IVP PRN (15:38)
[2017-05-08] MEDS ORDERED: LR 500 ML IV PRN (15:38)
[2017-05-08] MEDS ORDERED: HYDROmorphONE/DILAUDID 1 MG/ML INJ IVP PRN ×2 (15:38→16:13)
[2017-05-08] MEDS ORDERED: ALBUTEROL 3 ML DEYVIAL IH PRN (15:38)
[2017-05-08] MEDS ORDERED: BUPIVACAINE 0.5% 30 ML SDV ONE (15:39)
[2017-05-08] MEDS: fentaNYL 100 MCG/2 ML INJ IVP PRN ×2 (15:44→15:55)
[2017-05-08] MEDS ORDERED: HYDROmorphONE/DILAUDID 1 MG/ML INJ ONE (16:07)
[2017-05-08] MEDS ORDERED: ALBUTEROL 3 ML DEYVIAL ONE (16:07)
[2017-05-08] MEDS ORDERED: ONDANSETRON DISINTEGRATING 4 MG TAB PO PRN (16:13)
[2017-05-08] MEDS ORDERED: NS 1,000 ML IV SCH (16:15)
--- NOTE | 2017-05-08 18:10 | POSTANESTH ---
Post Anesthetic Evaluation Cardiovascular Status: Normal, Stable, Similar to Pre-Op Cond Respiratory Status: Similar to Pre-op Cond., Tx Decrease in SpO2 Level of Consciousness/Mental Status: Can Participate in Eval, Alert and Oriented Pain Control: Adequate, Prn Tx Ordered Nausea/Vomiting Control: Adequate, Prn Tx Ordered Complications Possibly Related to Anesthesia: None Noted (Patient known to have desaturation following every general anesthetic. Patient able to be discharged to floor on 2L O2 via NC.)
--- NOTE | 2017-05-08 20:22 | GOP ---
[f rep st] OPERATIVE REPORT DATE OF OPERATION: 05/08/2017 SURGEON: José Arango MD PREOPERATIVE DIAGNOSIS: Possible recurrent breast abscess. POSTOPERATIVE DIAGNOSIS: Possible recurrent breast abscess. PROCEDURE PERFORMED: Incision and debridement, right breast abscess. FINDINGS: The patient was found to have erythema, swelling, and induration of the medial aspect of t he right breast adjacent to a previous biopsy cavity. However, there was no major abscess collection , but just some edematous tissue. DESCRIPTION OF PROCEDURE: The patient was taken to the operating room, where she received satisfacto ry general endotracheal anesthesia by Dr. Mcelroy. She was placed in supine position with her right a rm outstretched on an arm board, prepped and draped in the usual sterile fashion. The old abscess wo und was explored. The incision was extended underneath the skin up to the area of erythema and indur ation, releasing some edematous fluid, but no evidence of abscess pocket collection. The wound was a lso explored laterally with similar findings. Superficial necrotic tissue was sharply debrided. Hem ostasis was obtained. The wound was infiltrated with 0.5% Marc[place] and packed with wet-to-dry dressi ng. She tolerated the procedure well. She was taken to the recovery room in good condition. There were no complications. /[id number]/MODL
[2017-05-08] MEDS: HYDROmorphONE/DILAUDID 2 MG TAB PO PRN (21:18)
[2017-05-09] MEDS: HYDROmorphONE/DILAUDID 2 MG TAB PO PRN ×2 (01:40→09:56)
[2017-05-09] MEDS ORDERED: ALBUTEROL 60 PUFFS/8 GM MDI IH PRN (09:16)
[2017-05-09] MEDS ORDERED: FLUTICASONE NASAL 120 SPRAYS/16 GM MDI EACHNARE PRN (09:16)
[2017-05-09] MEDS ORDERED: FLUTICASONE HFA 220 MCG MDI IH PRN (09:16)
[2017-05-09] MEDS ORDERED: IPRATROPIUM/ALBUTEROL 3 ML DEYVIAL IH PRN (09:16)
[2017-05-09] MEDS: ACETAMINOPHEN 325 MG TAB PO PRN (09:56)
[2017-05-09] MEDS: ERTAPENEM 1 GM VIAL IV SCH (10:08)
[2017-05-09] MEDS ORDERED: LORazepam 2 MG/ML INJ IVP ONE (10:39)
[2017-05-09] MEDS ORDERED: HYDROmorphONE/DILAUDID 2 MG/ML INJ ONE (10:41)
[2017-05-09] MEDS ORDERED: BUPIVACAINE 0.5% 30 ML SDV MISC SCH (10:41)
[2017-05-09] MEDS ORDERED: LORazepam 2 MG/ML INJ ONE (10:42)
[2017-05-09] MEDS ORDERED: HYDROmorphONE/DILAUDID 2 MG/ML INJ IVP ONE (11:30)
--- NOTE | 2017-05-09 11:49 | PCMIDPN ---
Assessment/Plan: # History Post op infection R breast following biopsy x 2, now admitted with increased pain R breast wound and some induration 12 o'clock to 4 o'clock, considering inflammation/reaction to wound vac vs. very early cellulitis. No abscess ID'd in the OR --ertapenem while await cx data --consider PO antibiotics if no ESBL isolated. --will need to interpret cultures carefully as could reflect wound colonization --plan standard wet to dry dressings meds ertapenem 1 gm IV daily #2 Subjective: 72 yo woman well known to ID with post op infection of R breast initially with ESBL E coli followed by polymicrobial infection with group a strep, ESBL E coli and MRSA. She was in her usual state of health completing IV ertapenem 05/03 returned to ER 05/07 with increased pain and induration on the medial side of the wound VAC. She was seen in follow-up by Dr. Arango the following day and taken back to the OR 05/08 for further debridement and path and cultures were sent. Objective: Vital Signs Temp Pulse Resp BP Pulse Ox 36.6 C 77 16 101/68 96 05/09/17 11:41 05/09/17 11:41 05/09/17 11:41 05/09/17 11:41 05/09/17 11:41 Microbiology 05/08/17 15:03 Gram Stain - Final Breast - Eswab 05/08/17 05/09/17 05/10/17 05:59 05:59 05:59 Intake Total 1100 Output Total 5 Balance 1095 - Physical Exam General Appearance: alert, no apparent distress EENT: No scleral icterus, No thrush Respiratory: lungs clear, No accessory muscle use Neck: supple Cardiac/Chest: regular rate, rhythm, other (very large wound R breast, healthy tissue in base; mild induration 12 o'clock to 4 o'clock) Extremities: No pedal edema Abdomen: non-tender, soft Skin: No rash Neuro/Psych: alert, normal mood/affect, oriented x 3 - Time Spent With Patient Time Spent with Patient: greater than 35 minutes (Care coordinated with Dr. Arango, nursing. Extensively reviewed non-infectious causes to symptoms with patient, daughter and son.) Time Spent with Patient: Greater than 35 minutes spent on this patients care, greater than 50% of time spent counseling, educating, and coordinating care regarding the above mentioned plan. ICD10 Worksheet Patient Problems: Problems Problem Status Onset Cellulitis Acute Cellulitis of right breast Acute Severe sepsis Acute
--- NOTE | 2017-05-09 14:15 | SOAPPROG ---
SOAP Progress Note Assessment/Plan: Assessment: 72 y/o female with recurrent R breast infection and failed wound vac therapy S/p R breast I&D 05/08/17 Cultures pending S: Pain well controlled. O: Afebrile Wound looked good during dressing change today. Erythema and induration somewhat improved since yesterday. Plan: Continue Invanz until cultures come back. Wet to dry dressings for now. Will switch back to wound vac with more granulation in the next few days. 05/09/17 14:09 Objective: Vital Signs Temp Pulse Resp BP Pulse Ox 36.6 C 77 16 101/68 96 05/09/17 11:41 05/09/17 11:41 05/09/17 11:41 05/09/17 11:41 05/09/17 11:41 Microbiology 05/08/17 15:03 Gram Stain - Final Breast - Eswab 05/08/17 05/09/17 05/10/17 05:59 05:59 05:59 Intake Total 1100 Output Total 5 Balance 1095 ICD10 Worksheet Patient Problems: Problems Problem Status Onset Cellulitis Acute Cellulitis of right breast Acute Severe sepsis Acute
--- NOTE | 2017-05-09 17:10 | ASMTCMCOM ---
CM Note CM Note Notes: Spoke w/pt and dtr, currently wound vac has been taken off and she is getting wet to dry dressing changes. May have wound vac replaced in a few days. CM w/f DC Plan: Homecare HC (RN) + wound vac? Date Signed: 05/09/2017 05:09 PM Electronically Signed By:Jade Vergara RN
[2017-05-09] MEDS ORDERED: LORazepam 1 MG TAB PO PRN (18:04)
[2017-05-10] MEDS ORDERED: HYDROmorphone HCL/NS 0.5 MG/ML SYR IVP PRN (01:00)
[2017-05-10] MEDS: MONTELUKAST SODIUM 10 MG TAB PO SCH (05:18)
[2017-05-10] MEDS: CETIRIZINE 10 MG TAB PO SCH (05:18)
[2017-05-10] MEDS: LOSARTAN POTASSIUM 50 MG TAB PO SCH (05:19)
[2017-05-10] MEDS: HYDROmorphONE/DILAUDID 2 MG TAB PO PRN ×3 (05:19→20:29)
[2017-05-10] MEDS: ATENOLOL 50 MG TAB PO SCH (05:19)
[2017-05-10] MEDS ORDERED: NON-FORMULARY NEW DRUG (Losartan Potassium [Cozaar] 100 MG) PO SCH (06:00)
[2017-05-10] MEDS ORDERED: CETIRIZINE HCL 10 MG PO SCH (06:00)
[2017-05-10] MEDS ORDERED: ERTAPENEM 1 GM VIAL IV SCH (09:00)
[2017-05-10] MEDS ORDERED: NON-FORMULARY NEW DRUG (Metformin Hcl [Metformin Hcl Er] 500 MG) PO SCH (09:00)
[2017-05-10] MEDS ORDERED: NON-FORMULARY NEW DRUG (Esomeprazole Mag Trihydrate [Nexium] 40 MG) PO SCH (09:00)
[2017-05-10] MEDS: ERTAPENEM 1 GM VIAL IV SCH (10:08)
[2017-05-10] MEDS: CHOLECALCIFEROL VIT D3 1,000 UNITS TAB PO SCH (10:13)
[2017-05-10] MEDS: ASPIRIN 325 MG TAB PO SCH (10:13)
[2017-05-10] MEDS: PANTOPRAZOLE SODIUM 40 MG TAB PO SCH (10:14)
[2017-05-10] MEDS: NON-FORMULARY NEW DRUG (Metformin Hcl [Metformin Hcl Er] 500 MG) PO SCH (10:21)
[2017-05-10] MEDS: ENOXAPARIN 40 MG/0.4 ML SYR SC SCH (10:21)
[2017-05-10] MEDS ORDERED: BUPIVACAINE 0.5% 30 ML SDV MISC ONE (10:57)
[2017-05-10] MEDS ORDERED: LORazepam 2 MG/ML INJ IVP ONE (10:59)
--- NOTE | 2017-05-10 11:14 | SOAPPROG ---
SOAP Progress Note Assessment/Plan: Assessment: 72 y/o female with recurrent R breast infection and failed wound vac therapy S/p R breast I&D 05/08/17 Cultures pending S: Pt pleased that she got a good night's sleep last night without pain meds. Did need some dilaudid this am, but resting comfortably now. Has been up to the bathroom, but not much ambulation other than that. O: Afebrile Erythema and induration much improved. Plan: Continue Invanz until cultures come back. Wet to dry dressings for now. Will switch back to wound vac with more granulation in the next few days. Will perform dressing change with RN today to assess wound. Would like to see her out of bed and walking more. Pt would like to stay one more night. Will plan for discharge tomorrow. 05/10/17 11:11 Objective: Vital Signs Temp Pulse Resp BP Pulse Ox 36.7 C 70 16 97/66 L 96 05/10/17 08:00 05/10/17 08:00 05/10/17 08:00 05/10/17 08:00 05/10/17 08:00 Microbiology 05/08/17 15:03 Gram Stain - Final Breast - Eswab 05/09/17 05/10/17 05/11/17 05:59 05:59 05:59 Intake Total 1100 550 Output Total 5 Balance 1095 550 ICD10 Worksheet Patient Problems: Problems Problem Status Onset Cellulitis Acute Cellulitis of right breast Acute Severe sepsis Acute
[2017-05-10] MEDS: HYDROmorphONE/DILAUDID 2 MG/ML INJ IVP PRN (12:19)
[2017-05-10] MEDS: MEROPENEM 1 GM in STERILE WATER INJ 20 ML IV SCH ×2 (12:55→21:30)
--- NOTE | 2017-05-10 13:17 | PCMIDPN ---
Assessment/Plan: # History Post op infection R breast x 2 following biopsy, admitted with increased pain R breast wound and some induration 12 o'clock to 3 o'clock, no change in pain since surgery, in fact pain may be slightly worse today. Afebrile. New microbiologic data showing rare Pseudomonas. Path showed fibroadipose tissue with acute inflammation, moderate, chronic eosinophilic inflammation, fat necrosis and fibrosis. Based on path still could consider reaction to wound vac vs 3rd soft tissue infection. With worsening pain today, I am forced to consider PsA could be mediating recurrent infection. --Plan to dc ertapenem and start meropenem. 1gm IV q8 based on allergies described below. Hold off on PICC line placement while assess clinical response --discussed re-challenge with FQ as possibility for therapy if improves after PsA added to coverage. --if no changes with antibiotic changes, more strongly consider inflammatory reaction --check labs tomorrow # Multiple antibiotic allergies PCN: anaphylaxis FQ: transient tendinopathy # Past Cx with ESBL, MRSA --contact precautions meds ertapenem 1 gm IV daily #3 Subjective: Reports left breast pain is the same to slightly worse as compared to yesterday. She slept well last night. No diarrhea. Objective: Vital Signs Temp Pulse Resp BP Pulse Ox 36.6 C 72 16 98/61 L 91 L 05/10/17 12:00 05/10/17 12:00 05/10/17 12:00 05/10/17 12:00 05/10/17 12:00 Microbiology 05/08/17 15:03 Gram Stain - Final Breast - Eswab 05/09/17 05/10/17 05/11/17 05:59 05:59 05:59 Intake Total 1100 550 Output Total 5 Balance 1095 550 - Physical Exam General Appearance: alert, no apparent distress Respiratory: No respiratory distress, No accessory muscle use Skin: No rash Neuro/Psych: alert, normal mood/affect, oriented x 3 - Line/s PIV Lines: other (Left hand), No drainage, No erythema - Time Spent With Patient Time Spent with Patient: greater than 35 minutes (Reviewed differential diagnosis of inflammatory changes, culture result, planned antibiotic changes and coordination of care with Dr. Arango) Time Spent with Patient: Greater than 35 minutes spent on this patients care, greater than 50% of time spent counseling, educating, and coordinating care regarding the above mentioned plan. ICD10 Worksheet Patient Problems: Problems Problem Status Onset Cellulitis Acute Cellulitis of right breast Acute Severe sepsis Acute
[2017-05-10] MEDS: ACETAMINOPHEN 325 MG TAB PO PRN (16:48)
--- NOTE | 2017-05-10 18:20 | ASMTCMCOM ---
CM Note CM Note Notes: Spoke w/pt and dtr, new bacteria identified, will start new antibiotic. Pt is getting wet to dry dresssing changes, unclear if will need wound vac, she also had a nutritional consult. DC Plan: TBD Date Signed: 05/10/2017 06:19 PM Electronically Signed By:Jade Vergara RN
[2017-05-10] MEDS: DOCUSATE SODIUM 100 MG CAP PO PRN (20:29)
[2017-05-10] MEDS: diphenhydrAMINE 25 MG CAP PO SCH (21:02)
[2017-05-11] MEDS: HYDROmorphONE/DILAUDID 2 MG TAB PO PRN ×3 (04:02→21:02)
[2017-05-11 05:11] LABS: PLATELET COUNT 334 10^3/uL (150-400)
[2017-05-11] MEDS: LOSARTAN POTASSIUM 50 MG TAB PO SCH (06:07)
[2017-05-11] MEDS: ATENOLOL 50 MG TAB PO SCH (06:07)
[2017-05-11] MEDS: CETIRIZINE 10 MG TAB PO SCH (06:08)
[2017-05-11] MEDS: MONTELUKAST SODIUM 10 MG TAB PO SCH (06:08)
[2017-05-11] MEDS: diphenhydrAMINE 25 MG CAP PO SCH ×3 (06:08→20:46)
[2017-05-11] MEDS: MEROPENEM 1 GM in STERILE WATER INJ 20 ML IV SCH ×3 (06:30→21:02)
[2017-05-11] MEDS: PANTOPRAZOLE SODIUM 40 MG TAB PO SCH (08:51)
[2017-05-11] MEDS: ENOXAPARIN 40 MG/0.4 ML SYR SC SCH (08:52)
[2017-05-11] MEDS: CHOLECALCIFEROL VIT D3 1,000 UNITS TAB PO SCH (08:52)
[2017-05-11] MEDS: ASPIRIN 325 MG TAB PO SCH (08:52)
[2017-05-11] MEDS: metFORMIN SR 500 MG TAB PO SCH (10:46)
[2017-05-11] MEDS: NON-FORMULARY NEW DRUG (Metformin Hcl [Metformin Hcl Er] 500 MG) PO SCH (11:00)
[2017-05-11] MEDS: HYDROmorphONE/DILAUDID 2 MG/ML INJ IVP SCH (11:22)
[2017-05-11] MEDS: BUPIVACAINE 0.5% 30 ML SDV IF SCH (12:10)
[2017-05-11] MEDS: LORazepam 2 MG/ML INJ IVP SCH (13:00)
--- NOTE | 2017-05-11 14:11 | SOAPPROG ---
SOAP Progress Note Assessment/Plan: Assessment: recurrent cellulitus, polymicrobial continue damp to dry continue abx S: Feels worn out O: Firm above breast. Dressing dry Plan: 05/11/17 14:10 Objective: Vital Signs Temp Pulse Resp BP Pulse Ox 36.9 C 77 16 100/57 L 91 L 05/11/17 11:10 05/11/17 11:10 05/11/17 11:10 05/11/17 11:10 05/11/17 11:10 Microbiology 05/08/17 15:03 Gram Stain - Final Breast - Eswab Laboratory Results 05/11/17 05:03 05/11/17 05:03 05/10/17 05/11/17 05/12/17 05:59 05:59 05:59 Intake Total 550 900 Balance 550 900 ICD10 Worksheet Patient Problems: Problems Problem Status Onset Cellulitis Acute Cellulitis of right breast Acute Severe sepsis Acute
--- NOTE | 2017-05-11 17:10 | PCMIDPN ---
Assessment/Plan: Assessment: Right breast abscess - wound dressing changed today. The base of the wound looked good. No significant surrounding erythema although the upper medial quadrant of tissue outside the wound is somewhat indurated and tender to palpation. This seems improved from yesterday. Plan: 1. Continue daily dressing changes wet to dry. 2. continue IV meropenem. 05/11/17 17:08 05/11/17 17:09 Subjective: Patient is resting in her hospital bed. Daughter in the room. She notes no fevers or chills. Still notes tenderness around the operative site on the right breast most significantly in the upper medial area. Objective: meropenem # 1 Vital Signs Temp Pulse Resp BP Pulse Ox 37.3 C 79 14 112/62 93 05/11/17 15:32 05/11/17 15:32 05/11/17 15:32 05/11/17 15:32 05/11/17 15:32 Microbiology 05/08/17 15:03 Gram Stain - Final Breast - Eswab Laboratory Results 05/11/17 05:03 05/11/17 05:03 05/10/17 05/11/17 05/12/17 05:59 05:59 05:59 Intake Total 550 900 Balance 550 900 C-Reactive Protein 32.2 mg/L (<10.0) H 05/11/17 05:03 - Physical Exam General Appearance: WD/WN, alert, no apparent distress, non-toxic Respiratory: lungs clear, normal breath sounds, No respiratory distress Cardiac/Chest: regular rate, rhythm, No tachycardia Skin: normal color, warm/dry, other ( right breast wound site clean dry and intact. Clean base to the wound. Some induration on the medial upper quadrant. ) ICD10 Worksheet Patient Problems: Problems Problem Status Onset Cellulitis Acute Cellulitis of right breast Acute Severe sepsis Acute
[2017-05-11] MEDS: DOCUSATE SODIUM 100 MG CAP PO PRN (18:29)
[2017-05-12] MEDS: ATENOLOL 50 MG TAB PO SCH (05:31)
[2017-05-12] MEDS: MONTELUKAST SODIUM 10 MG TAB PO SCH (05:31)
[2017-05-12] MEDS: LOSARTAN POTASSIUM 50 MG TAB PO SCH (05:31)
[2017-05-12] MEDS: CETIRIZINE 10 MG TAB PO SCH (05:31)
[2017-05-12] MEDS: diphenhydrAMINE 25 MG CAP PO SCH ×3 (05:32→20:17)
[2017-05-12] MEDS: ACETAMINOPHEN 325 MG TAB PO PRN ×2 (05:47→21:27)
[2017-05-12] MEDS: MEROPENEM 1 GM in STERILE WATER INJ 20 ML IV SCH ×3 (05:47→21:20)
--- NOTE | 2017-05-12 08:14 | SOAPPROG ---
SOAP Progress Note Assessment/Plan: Assessment: recurrent cellulitus, polymicrobial continue damp to dry continue abx S: Better today O: Less Firm above breast. Dressing changed with healthy granulation tissue in wound Plan: 05/11/17 14:10 05/12/17 08:13 Objective: Vital Signs Temp Pulse Resp BP Pulse Ox 37.0 C 75 14 95/63 L 90 L 05/12/17 07:28 05/12/17 07:28 05/12/17 07:28 05/12/17 07:28 05/12/17 07:28 Microbiology 05/08/17 15:03 Gram Stain - Final Breast - Eswab Laboratory Results 05/11/17 05:03 05/11/17 05:03 05/11/17 05/12/17 05/13/17 05:59 05:59 05:59 Intake Total 900 Balance 900 ICD10 Worksheet Patient Problems: Problems Problem Status Onset Cellulitis Acute Cellulitis of right breast Acute Severe sepsis Acute
[2017-05-12] MEDS ORDERED: LORazepam 2 MG/ML INJ IVP PRN (09:30)
[2017-05-12] MEDS ORDERED: BUPIVACAINE 0.5% 30 ML SDV IF PRN (09:30)
[2017-05-12] MEDS ORDERED: HYDROmorphONE/DILAUDID 2 MG/ML INJ IVP PRN (09:30)
[2017-05-12] MEDS: ENOXAPARIN 40 MG/0.4 ML SYR SC SCH (09:35)
[2017-05-12] MEDS: PANTOPRAZOLE SODIUM 40 MG TAB PO SCH (09:36)
[2017-05-12] MEDS: metFORMIN SR 500 MG TAB PO SCH (09:36)
[2017-05-12] MEDS: CHOLECALCIFEROL VIT D3 1,000 UNITS TAB PO SCH (09:36)
[2017-05-12] MEDS: ASPIRIN 325 MG TAB PO SCH (09:36)
[2017-05-12] MEDS: HYDROmorphONE/DILAUDID 2 MG/ML INJ IVP SCH (09:39)
[2017-05-12] MEDS: BUPIVACAINE 0.5% 30 ML SDV IF SCH (09:39)
[2017-05-12] MEDS: LORazepam 2 MG/ML INJ IVP SCH (09:40)
--- NOTE | 2017-05-12 15:03 | PCMIDPN ---
Assessment/Plan: Assessment: Right breast abscess - wound dressing changed earlier today. The base of the wound looked good. Plan to continue IV meropenem. Late growth of enterococcus faecalis in wound culture does not change plans. Plan: 1. Continue daily dressing changes wet to dry. 2. continue IV meropenem. Subjective: Patient is in good spirits. She is resting in her room. Notes that Dr. Rai greenwood was in earlier this morning and was happy with the appearance of the wound during dressing changes. No fevers or chills. Objective: Meropenem # 2 Vital Signs Temp Pulse Resp BP Pulse Ox 36.8 C 79 14 81/47 L 92 05/12/17 11:15 05/12/17 11:15 05/12/17 11:15 05/12/17 11:15 05/12/17 11:15 Microbiology 05/08/17 15:03 Gram Stain - Final Breast - Eswab Laboratory Results 05/11/17 05:03 05/11/17 05:03 05/11/17 05/12/17 05/13/17 05:59 05:59 05:59 Intake Total 900 Balance 900 C-Reactive Protein 32.2 mg/L (<10.0) H 05/11/17 05:03 - Physical Exam General Appearance: WD/WN, alert, no apparent distress, non-toxic Skin: normal color, warm/dry, No rash Neuro/Psych: alert, normal mood/affect, oriented x 3 ICD10 Worksheet Patient Problems: Problems Problem Status Onset Cellulitis Acute Cellulitis of right breast Acute Severe sepsis Acute
--- NOTE | 2017-05-12 17:56 | ASMTCMCOM ---
CM Note CM Note Notes: Met w/ pt to provide support. Offered ideas to help pt cope with prolonged hospitalization and illness. Discharge needs remain unclear at this time. Pt cont new antibiotic course and wet to dry dressings. CM will cont to follow. Current Discharge Plan: To be determined Date Signed: 05/12/2017 05:55 PM Electronically Signed By:Gabriella Del Cid RN
[2017-05-12] MEDS: DOCUSATE SODIUM 100 MG CAP PO PRN (20:20)
[2017-05-13] MEDS: ATENOLOL 50 MG TAB PO SCH (04:53)
[2017-05-13] MEDS: diphenhydrAMINE 25 MG CAP PO SCH ×3 (04:53→21:45)
[2017-05-13] MEDS: MONTELUKAST SODIUM 10 MG TAB PO SCH (04:53)
[2017-05-13] MEDS: LOSARTAN POTASSIUM 50 MG TAB PO SCH (04:53)
[2017-05-13] MEDS: CETIRIZINE 10 MG TAB PO SCH (04:53)
[2017-05-13] MEDS: ACETAMINOPHEN 325 MG TAB PO PRN (04:58)
[2017-05-13] MEDS: MEROPENEM 1 GM in STERILE WATER INJ 20 ML IV SCH (05:55)
--- NOTE | 2017-05-13 08:32 | SOAPPROG ---
SOAP Progress Note Assessment/Plan: Assessment: 72 y/o female with recurrent R breast infection S/p R breast I&D 05/08/17 S: Doing well today. Pain well controlled. O: Afebrile NAD, alert Wound looks good today with healthy granulation tissue. No erythema. Mild induration in the 3 O'clock position Plan: Pt would like to go home. Will consult with ID about discharge with tid abx. Continue wet to dry dressings. If pt stays, will change dressings twice per day. 05/13/17 08:34 Objective: Vital Signs Temp Pulse Resp BP Pulse Ox 36.7 C 71 16 110/68 91 L 05/13/17 07:09 05/13/17 07:09 05/13/17 07:09 05/13/17 07:09 05/13/17 07:09 Microbiology 05/08/17 15:03 Gram Stain - Final Breast - Eswab Laboratory Results 05/11/17 05:03 05/11/17 05:03 ICD10 Worksheet Patient Problems: Problems Problem Status Onset Cellulitis Acute Cellulitis of right breast Acute Severe sepsis Acute
[2017-05-13] MEDS: ENOXAPARIN 40 MG/0.4 ML SYR SC SCH (10:00)
[2017-05-13] MEDS: ASPIRIN 325 MG TAB PO SCH (10:01)
[2017-05-13] MEDS: metFORMIN SR 500 MG TAB PO SCH (10:01)
[2017-05-13] MEDS: CHOLECALCIFEROL VIT D3 1,000 UNITS TAB PO SCH (10:02)
[2017-05-13] MEDS: PANTOPRAZOLE SODIUM 40 MG TAB PO SCH (10:02)
--- NOTE | 2017-05-13 10:55 | PCMIDPN ---
Assessment/Plan: Assessment/Plan: * Recurrent right breast abscess: Clinically improved post drainage with some residual induration and tenderness superiorly. Culture shows growth of Pseudomonas aeruginosa and Enterococcus (susceptibility pending). Unclear if these are true pathogens versus colonizers in this setting. Patient concerned with difficulty of meropenem dosing as outpatient. Reviewed levofloxacin allergy with patient which was related to difficulty getting up/using lower extremities. Thinks she has tolerated Cipro in the past without difficulty. Will begin oral ciprofloxacin 750 mg twice daily targeting Pseudomonas and assess for tolerance as this would allow for oral therapy as outpatient given its excellent oral bioavailability recognizing will not have activity against Enterococcus. Await Enterococcus susceptibilities to see if isolate is susceptible to doxycycline. Will review with Dr. Arango regarding consideration for breast MRI given persistent induration superiorly. 05/13/17 10:52 Subjective: Patient with residual tenderness in right upper breast. She is concerned about twice daily dressing changes and use of 3 times per day meropenem as outpatient. Objective: Vital Signs Temp Pulse Resp BP Pulse Ox 36.7 C 71 16 110/68 91 L 05/13/17 07:09 05/13/17 07:09 05/13/17 07:09 05/13/17 07:09 05/13/17 07:09 Microbiology 05/08/17 15:03 Gram Stain - Final Breast - Eswab Laboratory Results 05/11/17 05:03 05/11/17 05:03 C-Reactive Protein 32.2 mg/L (<10.0) H 05/11/17 05:03 Meropenem # 3 Breast cultures with growth of Pseudomonas and Enterococcus faecalis - Physical Exam General Appearance: alert, no apparent distress EENT: No scleral icterus Cardiac/Chest: other (Right breast with packing in place; no residual erythema; residual induration and tenderness present superior to packing.) Neuro/Psych: other (Oriented appropriately) ICD10 Worksheet Patient Problems: Problems Problem Status Onset Cellulitis Acute Cellulitis of right breast Acute Severe sepsis Acute
[2017-05-13] MEDS: CIPROFLOXACIN 500 MG TAB PO SCH ×2 (12:01→20:56)
[2017-05-13] MEDS ORDERED: GADOBUTROL 10 ML VIAL IVP ONE (13:44)
[2017-05-13] MEDS: HYDROmorphONE/DILAUDID 2 MG/ML INJ IVP PRN (14:15)
[2017-05-14] MEDS: diphenhydrAMINE 25 MG CAP PO SCH ×4 (05:10→23:07)
[2017-05-14] MEDS: LOSARTAN POTASSIUM 50 MG TAB PO SCH (05:59)
[2017-05-14] MEDS: ATENOLOL 50 MG TAB PO SCH (05:59)
[2017-05-14] MEDS: CETIRIZINE 10 MG TAB PO SCH (05:59)
[2017-05-14] MEDS: MONTELUKAST SODIUM 10 MG TAB PO SCH (06:00)
[2017-05-14] MEDS: ACETAMINOPHEN 325 MG TAB PO PRN ×2 (06:05→15:51)
[2017-05-14] MEDS: DOCUSATE SODIUM 100 MG CAP PO PRN (06:06)
[2017-05-14] MEDS: ENOXAPARIN 40 MG/0.4 ML SYR SC SCH (08:25)
[2017-05-14] MEDS: ASPIRIN 325 MG TAB PO SCH (08:25)
[2017-05-14] MEDS: metFORMIN SR 500 MG TAB PO SCH (08:26)
[2017-05-14] MEDS: CHOLECALCIFEROL VIT D3 1,000 UNITS TAB PO SCH (08:26)
[2017-05-14] MEDS: PANTOPRAZOLE SODIUM 40 MG TAB PO SCH (08:26)
[2017-05-14] MEDS: CIPROFLOXACIN 500 MG TAB PO SCH ×2 (10:14→19:35)
--- NOTE | 2017-05-14 14:39 | SOAPPROG ---
SOAP Progress Note Assessment/Plan: Assessment/Plan: 72 Y F hx breast CA, more recent hx of benign breast bx. s/p hematoma, I&D, abscess, and multiple I&D's since then. s/p R breast I&D x 1 this hospital stay. Wound looking healthy--increased granulation. Surrounding skin is soft, nontender, and without erythema. Continue bid moist to dry dressing changes while in house. Change to daily changes once outpatient. Will review MRI images with Dr. Arango. Suspect fluid seen is just at base of wound. Discussed with ID today. Plan for dispo tomorrow, most likely with [facility], frequent office visits, and oral antibiotics. S: still having some pain medial to wound. no fever. O: alert, nad, nontoxic appearing mmm, no jaundice no owb abd soft breast wound clean, soft, granulating, no redness (see above). 05/14/17 14:35 Objective: Vital Signs Temp Pulse Resp BP Pulse Ox 37.1 C 71 16 111/73 92 05/14/17 12:15 05/14/17 12:15 05/14/17 12:15 05/14/17 12:15 05/14/17 12:15 Microbiology 05/08/17 15:03 Gram Stain - Final Breast - Eswab Laboratory Results 05/11/17 05:03 05/11/17 05:03 05/13/17 05/14/17 05/15/17 05:59 05:59 05:59 Intake Total 700 500 Balance 700 500 ICD10 Worksheet Patient Problems: Problems Problem Status Onset Cellulitis Acute Cellulitis of right breast Acute Severe sepsis Acute
--- NOTE | 2017-05-14 15:09 | PCMIDPN ---
Assessment/Plan: Assessment/Plan: * Recurrent right breast abscess: Continued clinical improvement post drainage. Tolerating oral ciprofloxacin well. Enterococcal isolate is resistant to doxycycline. Suspect this may represent colonization rather than true pathogen (clinical improvement with drainage alone and no targeted therapy for Enterococcus today) so will not target with alternative therapy at this point as would require treatment with IV daptomycin which was discussed with patient today. Suspect fluid collection noted on MRI of breast represents dependent fluid rather than discrete abscess. Continue local wound care as outlined by Dr. Arango. Anticipate likely discharge home tomorrow with continued outpatient follow-up. Time spent, 30 min, of which greater than half was spent in education/counseling /coordination of care related to recurrent right breast abscess, MR findings, and plan of care. 05/13/17 10:52 05/14/17 15:03 05/14/17 15:13 Subjective: Patient with less breast tenderness although remains present along superior margin. No problems taking ciprofloxacin to date. Objective: Vital Signs Temp Pulse Resp BP Pulse Ox 37.1 C 71 16 111/73 92 05/14/17 12:15 05/14/17 12:15 05/14/17 12:15 05/14/17 12:15 05/14/17 12:15 Microbiology 05/08/17 15:03 Gram Stain - Final Breast - Eswab Laboratory Results 05/11/17 05:03 05/11/17 05:03 05/13/17 05/14/17 05/15/17 05:59 05:59 05:59 Intake Total 700 500 Balance 700 500 C-Reactive Protein 32.2 mg/L (<10.0) H 05/11/17 05:03 Ciprofloxacin # 1 Status post meropenem x3 days Microbiology 05/08/17 15:03 Breast - Eswab Gram Stain - Final 05/08/17 15:03 Breast - Eswab Anaerobic Culture - Preliminary Pseudomonas Aeruginosa Enterococcus Faecalis which is tetracycline resistant - Physical Exam General Appearance: alert, no apparent distress EENT: No scleral icterus Cardiac/Chest: other (Right breast with packing in place; no residual erythema; mild induration and tenderness superior and medial along incision line) ICD10 Worksheet Patient Problems: Problems Problem Status Onset Cellulitis Acute Cellulitis of right breast Acute Severe sepsis Acute
--- NOTE | 2017-05-14 16:23 | ASMTCMCOM ---
CM Note CM Note Notes: CM met w/ pt and children for dispo planning. Tenative d/c for tomorrow. Pt was switched from ivabx to orals. Pt will need dressing changes 2x a day. Pt would like a referral made to [facility] for RN and OT. Referral made to [facility] and they are able to accept. CM communicated this w/ pt. CM to follow. Plan: [facility], RN and OT Date Signed: 05/14/2017 04:22 PM Electronically Signed By:KAYLA Shaw
[2017-05-15] MEDS: ATENOLOL 50 MG TAB PO SCH (05:12)
[2017-05-15] MEDS: LOSARTAN POTASSIUM 50 MG TAB PO SCH (05:12)
[2017-05-15] MEDS: CETIRIZINE 10 MG TAB PO SCH (05:13)
[2017-05-15] MEDS: MONTELUKAST SODIUM 10 MG TAB PO SCH (05:13)
[2017-05-15 07:27] VITALS: BP 109/80
[2017-05-15] MEDS: ENOXAPARIN 40 MG/0.4 ML SYR SC SCH (08:06)
[2017-05-15] MEDS: PANTOPRAZOLE SODIUM 40 MG TAB PO SCH (08:06)
[2017-05-15] MEDS: CHOLECALCIFEROL VIT D3 1,000 UNITS TAB PO SCH (08:07)
[2017-05-15] MEDS: ASPIRIN 325 MG TAB PO SCH (08:07)
[2017-05-15] MEDS: metFORMIN SR 500 MG TAB PO SCH (08:07)
[2017-05-15] MEDS: CIPROFLOXACIN 500 MG TAB PO SCH (10:33)
--- NOTE | 2017-05-15 11:54 | PDIAF ---
- Diagnosis Diagnosis: s/p I&D of recurrent right breast abscess/cellulitis. Code Status: Full Code - Medication Management Discharge Medications: Medications to Continue on Transfer Atenolol [Tenormin 50 mg (*)] 25 mg PO DAILY06 01/15/14 [Last Taken 05/08/17 08: 30] CETIRIZINE HCL [ZYRTEC] 10 mg PO DAILY06 01/15/14 [Last Taken 05/06/17] Fluticasone Nasal [Flonase Nasal Downs] 1 sprays NASAL DAILY PRN 01/15/14 [Last Taken 05/08/17] Losartan Potassium [Cozaar] 100 mg PO DAILY06 01/15/14 [Last Taken 05/08/17 08: 30] Montelukast Sodium [Singulair 10 mg (*)] 10 mg PO DAILY06 01/15/14 [Last Taken 05/08/17 08:30] Albuterol [Proventil Inhaler HFA (*)] 1 - 2 puffs IH Q4H PRN 03/13/17 [Last Taken Unknown] Cholecalciferol Vit D3 [Vitamin D3 (*)] 2,000 units PO DAILY 03/13/17 [Last Taken 05/07/17] Esomeprazole Mag Trihydrate [Nexium] 40 mg PO DAILY 03/13/17 [Last Taken 08:30] Fluticasone Hfa 220 Mcg [Flovent 220 MCG Hfa MDI (*)] 1 puffs IH BID PRN [Last Taken 05/07/17] Herbals/Supplements -Info Only 1 ea PO DAILY 03/13/17 [Last Taken 3 Days Ago ~] metFORMIN HCL [Metformin HCl ER] 500 mg PO DAILY 03/13/17 [Last Taken 05/08/17 08:30] Aspirin [Aspirin 325 mg (*)] 325 mg PO DAILY 03/24/17 [Last Taken 05/07/17] Ipratropium/Albuterol [Duoneb (*)] 3 ml IH Q6HRS PRN #30 deyvial 04/29/17 [Last Taken 05/06/17] Ciprofloxacin [Cipro] 750 mg PO BID@1000,2000 tab 05/15/17 [Last Taken Unknown] Labor And Delivery Nurse Antibiotics: Oral Cipro per Dr. Pollard's instructions. Mahnaz is aware. Discharge Medications: Refer to the Discharge Home Medication list for PRN reason. PICC Care - Routine: N/A - Orders Services needed: Home Care, Registered Nurse, Occupational Therapy Home Care Face to Face: I certify that this patient was under my care and that I had the required [id number] encounter meeting the encounter requirements on the discharge day. My findings support the fact that the patient is homebound as defined in Home Care Face to Face Continued: CMS Chapter 7 Medicare Benefits Manual 30.1.1 , The condition of the patient is such that there exists a normal inability to leave home and consequently, leaving home would require a considerable and taxing effort. Isolation Type: Contact Isolation Diet Recommendation: no restrictions on diet Diet Texture: Regular Texture Diet Wound Care Instructions: please change dressing daily using moist to dry gauze dressings. prefer use of continuous thin pritesh wrap to avoid the mistake of leaving old gauze in the wound. Thanks. - Follow Up Care Current Providers and Referrals: José Arango MD [Medical Doctor] - 05/17/17 3:00 pm Lilia Romero MD [Primary Care Provider] - Casa Pollard MD [Medical Doctor] - (per his instructions.)
--- NOTE | 2017-05-15 11:55 | SOAPPROG ---
SOAP Progress Note Assessment/Plan: Assessment/Plan: 72 Y F hx breast CA, more recent hx of benign breast bx. s/p hematoma, I&D, abscess, and multiple I&D's since then. s/p R breast I&D x 1 this hospital stay. Wound clean, granulating. No erythema. Surrounding tissue soft. Dressing changed. D/c today. Patient will be picking up Rx for Cipro per Dr. Pollard's instructions. Early f/u this Saturday with Dr. Arango. 05/15/17 11:54 Objective: Vital Signs Temp Pulse Resp BP Pulse Ox 36.8 C 72 16 109/80 92 05/15/17 07:26 05/15/17 07:26 05/15/17 07:26 05/15/17 07:26 05/15/17 07:26 Microbiology 05/08/17 15:03 Gram Stain - Final Breast - Eswab Laboratory Results 05/11/17 05:03 05/11/17 05:03 05/14/17 05/15/17 05/16/17 05:59 05:59 05:59 Intake Total 700 850 Balance 700 850 ICD10 Worksheet Patient Problems: Problems Problem Status Onset Cellulitis Acute Cellulitis of right breast Acute Severe sepsis Acute
[2017-05-15 12:23] VITALS: PULSE 75; RESP 18; TEMP 98; O2SAT 96
--- NOTE | 2017-05-15 14:43 | PCMIDPN ---
Assessment/Plan: Assessment/Plan: * Recurrent right breast abscess: Clinically improved without residual findings of infection. No purulence noted at base of wound. Wound is granulating nicely. No surrounding cellulitis. Continue ciprofloxacin with anticipated 3 week course of therapy given complexity of infectious clinical course. Ongoing wound care via surgical service. Plan for discharge from hospital without patient follow-up with me next week on 05/21/2017. Time spent, 25 min, of which greater than half was spent in education/counseling /coordination of care related to recurrent right breast abscess and plan of care post hospital discharge. 05/15/17 14:40 Subjective: Patient feels improved with less breast tenderness. No issues with ciprofloxacin currently. Objective: Vital Signs Temp Pulse Resp BP Pulse Ox 36.6 C 75 18 109/80 96 05/15/17 12:00 05/15/17 12:00 05/15/17 12:00 05/15/17 12:00 05/15/17 12:00 Microbiology 05/08/17 15:03 Gram Stain - Final Breast - Eswab Anaerobic Culture - Final Pseudomonas Aeruginosa Enterococcus Faecalis Laboratory Results 05/11/17 05:03 05/11/17 05:03 05/14/17 05/15/17 05/16/17 05:59 05:59 05:59 Intake Total 700 850 Balance 700 850 C-Reactive Protein 32.2 mg/L (<10.0) H 05/11/17 05:03 Ciprofloxacin # 2 - Physical Exam General Appearance: alert, no apparent distress EENT: No scleral icterus Cardiac/Chest: other (Right breast wound bed with granulation throughout; no necrosis or purulence; induration over superior margin has decreased; no surrounding skin erythema) ICD10 Worksheet Patient Problems: Problems Problem Status Onset Cellulitis Acute Cellulitis of right breast Acute Severe sepsis Acute
--- NOTE | 2017-05-15 15:13 | ASMTLACE ---
LACE Length of stay for Answers: 4-6 days current admission Acuity / Level of Answers: Yes Care: Did the patient have an inpatient admission? Comorbidities - select Answers: Diabetes (uncontrolled or all that apply controlled) # of Emergency department Answers: 1-2 visits in the last 6 months Score: 9 Date Signed: 05/15/2017 03:12 PM Electronically Signed By:Jade Vergara RN
== END 2017-05-15 13:00 | disposition home or self-care (01) | DRG 585 ==
LOC: EEVIPCON 12:27 → F3N 12:27 → F3E 13:04 → OBSVTOIN 05-09 15:06 → F3E 05-09 18:26
PROVIDERS: ADMIT Surgery; ATTEND Surgery
PROC: 0HBT0ZX Excision of Right Breast, Open Approach, Diagnostic (ICD-10-PCS; principal; 2017-05-09)
DX: N61.1 Abscess of the breast and nipple (principal); B96.5 Pseudomonas (aeruginosa) (mallei) (pseudomallei) as the cause of diseases classified elsewhere; Z85.3 Personal history of malignant neoplasm of breast; I10 Essential (primary) hypertension; E78.5 Hyperlipidemia, unspecified; Z79.2 Long term (current) use of antibiotics; Z86.711 Personal history of pulmonary embolism
CPT/HCPCS: 0159T; 96374; A9585; C8908; J1100; J1170; J1335; J1650; J2060; J2185; J2370; J2405; J2704; J3010; J7613

== ENCOUNTER 2018-01-10 13:40 | Emergency (ER) | payer OTHER, MEDICARE ==
--- NOTE | 2018-01-10 17:13 | EDPHY ---
H & P Stated Complaint: Fell, injuries to R knee. L ankle, L wrist, R elbow. Time Seen by Provider: 01/10/18 14:18 HPI/ROS: CHIEF COMPLAINT: Left ankle, left wrist, and right elbow pain HISTORY OF PRESENT ILLNESS: This is a 72-year-old female who tripped and fell. This was a mechanical fall with no preceding symptoms. She did not strike her head. She is complaining of left ankle pain, left wrist pain, and right elbow pain. She is not aware of any numbness or weakness. REVIEW OF SYSTEMS: A ten system review of systems was performed and is negative with the exception of the items mentioned in the HPI. Past medical history: 1. Breast cancer 2. Reactive airway disease Past surgical history: Breast surgery Social history: She is . She is here with her daughter and has other family in the area. No tobacco use. General Appearance: Alert. Vital signs reviewed. Initial blood pressure 157/ 94. Head: Normocephalic atraumatic. Eyes: Pupils equal and round, no conjunctival injection, no discharge. Anicteric. ENT, Mouth: Mucous membranes are moist, no dental injury or trismus. Neck: No pain with active range of motion of her neck. No pain with palpation over the cervical spine in the midline. Respiratory: Lungs are clear to auscultation; no wheezes, rales, or rhonchi. Thorax: Nontender to palpation. No crepitus. Cardiovascular: Regular rate and rhythm; no murmur, rub, or gallop. Gastrointestinal: Abdomen is soft and nontender. Skin: Warm and dry, no rashes on exposed skin, normal color. Back: Nontender to palpation over the thoracolumbar spine. Extremities: Tender to palpation over the right elbow, left ankle, left wrist and carpal bones with some swelling in the region of the triquetrum. No lacerations. Neurological: Alert and oriented. Moving all four extremities easily and equally. Facial expressions symmetric. Sensation intact to light touch over all 4 extremities. Psychiatric: Normal affect. - Personal History Current Tetanus Diphtheria and Acellular Pertussis (TDAP): Yes - Medical/Surgical History Hx Asthma: Yes Hx Chronic Respiratory Disease: No Hx Diabetes: Yes Hx Cardiac Disease: No Hx Renal Disease: No Hx Cirrhosis: No Hx Alcoholism: No Hx HIV/AIDS: No Hx Splenectomy or Spleen Trauma: No Other PMH: Asthma, prediabetes, breast CA - lumpectomy r side, - Social History Smoking Status: Never smoked Constitutional: Initial Vital Signs Temperature (C) 36.5 C 01/10/18 13:41 Heart Rate 82 01/10/18 13:41 Respiratory Rate 16 01/10/18 13:41 Blood Pressure 157/94 H 01/10/18 13:41 O2 Sat (%) 95 01/10/18 13:41 O2 Delivery Mode Room Air Allergies/Adverse Reactions: Penicillins Allergy (Severe, Verified 01/12/18 10:17) THROAT SWELLING meperidine HCl [From Demerol] Allergy (Intermediate, Verified 01/12/18 10:17) TACHYCARDIC levofloxacin [From Levaquin] Allergy (Mild, Verified 01/12/18 10:17) "COULDNT STAND UP - NO STRENGTH" oxycodone [From Percocet] Allergy (Mild, Verified 01/12/18 10:17) Other-Enter Comments epinephrine [Epinephrine] Allergy (Unknown, Verified 01/12/18 10:17) TACHYCARDIC meperidine Allergy (Unknown, Verified 01/12/18 10:17) chloramphenicol [From Chloromycetin] Allergy (Verified 01/12/18 10:17) Levaquin Allergy (Unknown, Uncoded 05/20/17 11:55) tendonopathy Home Medications: Medication Instructions Recorded Albuterol [Proventil Inhaler HFA 2 puffs IH 01/12/18 (*)] Ciprofloxacin [Cipro] 500 mg PO 01/12/18 Esomeprazole Magnesium [Nexium] 20 mg PO 01/12/18 Furosemide [Lasix] 40 mg PO 01/12/18 HYDROmorphone HCL [Dilaudid 2 mg 2 mg PO Q4-6PRN PRN #20 tab 01/12/18 (*)] Ipratropium [Atrovent Hfa (*)] 200 puffs IH 01/12/18 LORazepam [Ativan (*)] 0.5 mg PO 01/12/18 Montelukast Sodium [Singulair 10 10 mg PO DAILY@1800 01/12/18 mg (*)] metFORMIN HCL [Glucophage 500 mg 500 mg PO 01/12/18 (*)] Medical Decision Making ED Course/Re-evaluation: Mechanical fall. An x-ray of the left ankle is negative for fracture or dislocation. I believe that she has a left ankle sprain and an air cast will be applied. X-ray of the right elbow shows a mildly impacted right radial head fracture. On reexamination she has normal sensation over the right upper extremity. She has full active range of motion of her right wrist and digits. A sling was placed on the right elbow. She complained of some right shoulder pain, prompting a right shoulder x-ray that is negative for fracture or dislocation. The radiologist noted the possibility of an 8th rib fracture. She was re- examined and has no tenderness over her ribcage on either the right or the left. An x-ray of the left wrist shows a possible distal radial metaphysis fracture and triquetral fracture. As she has tenderness over this these areas, I assume that these fractures are real. A Velcro wrist/thumb spica splint was applied. She was able to ambulate in the emergency department and understands that these various injuries will make self care somewhat difficult. She does have family help. She is referred to Orthopedics for follow-up. She is given instructions for splint and sling care and also for rice therapy. Differential Diagnosis: I considered a differential diagnosis that includes but is not limited to fracture, dislocation, sprain, strain, contusion, and laceration. - Data Points Medications Given: Discontinued Medications Acetaminophen (Tylenol) 650 mg PO EDNOW ONE Stop: 01/10/18 16:46 Last Admin: 01/10/18 17:32 Dose: 650 mg Departure - Departure Disposition: Home, Routine, Self-Care Clinical Impression: Radius fracture Qualifiers: Encounter type: initial encounter Radius location: distal physis (incl. Salter- Rodriguez) Fracture alignment: nondisplaced Laterality: left Qualified Code(s): S59.292A - Other physeal fracture of lower end of radius, left arm, initial encounter for closed fracture Radial head fracture, closed Qualifiers: Encounter type: initial encounter Fracture alignment: nondisplaced Laterality: left Qualified Code(s): S52.125A - Nondisplaced fracture of head of left radius , initial encounter for closed fracture Fracture, triquetral bone Qualifiers: Encounter type: initial encounter Fracture type: closed Fracture alignment: nondisplaced Laterality: left Qualified Code(s): S62.115A - Nondisplaced fracture of triquetrum [cuneiform] bone, left wrist, initial encounter for closed fracture Ankle sprain Qualifiers: Encounter type: initial encounter Involved ligament of ankle: unspecified ligament Laterality: left Qualified Code(s): S93.402A - Sprain of unspecified ligament of left ankle, initial encounter Condition: Good Instructions: Ankle Sprain (ED), Hand Fracture (ED), Elbow Fracture (ED), Wrist Fracture in Adults (ED), Ankle Stirrup Splint (ED), R.I.C.E. Treatment (ED ) Additional Instructions: Adult Pain & Fever Control: We recommend Acetaminophen (Tylenol) and Ibuprofen (Motrin,Advil) for pain and fever control. When fever is high or pain severe, both drugs can be used at the same time, but at different intervals. Please note the time differences. Your dose is: Acetaminophen [650]mg every 4 to 6 hours Ibuprofen [400]mg every [8] hours with food OR Note: do not take Acetaminophen with Hydrocodone (Vicodin, Lortab) or Oycodone (Percocet). These medications also contain Acetaminophen. No more than 3000mg of Acetaminophen should be taken in 24 hours (for an adult). I am referring you to orthopedist Dr. Valladares. He works at [facility]. You can also see Dr. Wood, orthopedics, who is on-call today for the emergency department. I recommend that you call 1 of them on Saturday morning and arrange follow-up appointment. I will give you reports of your x- ray readings so that you can share them with the office staff when they are making your follow-up appointment. Wear the sling on your right arm--if you have to take it off to take care of some of the activities of daily living you can do so, but please try to minimize movement of that arm. Leave the splint in place on the left arm and hand. Wear the ankle splint. I know that all of these devices are going to make it difficult to get around, so please be very careful. Referrals: Lilia Romero MD [Primary Care Provider] - As per Instructions Ike Valladares MD [Medical Doctor] - As per Instructions Ricky Woodruff MD [Medical Doctor] - As per Instructions
[2018-01-10] MEDS: ACETAMINOPHEN 325 MG TAB PO ONE (17:32)
[2018-01-10 17:50] VITALS: BP 128/81
== END 2018-01-10 17:50 | disposition home or self-care (01) ==
LOC: EEVIPCON 13:40
DX: S52.121A Displaced fracture of head of right radius, initial encounter for closed fracture (principal); S52.592A Other fractures of lower end of left radius, initial encounter for closed fracture; S93.402A Sprain of unspecified ligament of left ankle, initial encounter; S62.115A Nondisplaced fracture of triquetrum [cuneiform] bone, left wrist, initial encounter for closed fracture; W01.0XXA Fall on same level from slipping, tripping and stumbling without subsequent striking against object, initial encounter
CPT/HCPCS: 73030; 73070; 73100; 73130; 73610; 99284; A4565; L3807; L4350

== ENCOUNTER 2018-01-12 10:15 | Emergency (ER) | payer OTHER, MEDICARE ==
--- NOTE | 2018-01-12 10:30 | EDPHY ---
H & P Stated Complaint: Here Fri post fall;pain in L wrist very painful;unrelieved w/ OTC meds Time Seen by Provider: 01/12/18 10:29 - Medical/Surgical History Hx Asthma: Yes Hx Chronic Respiratory Disease: No Hx Diabetes: Yes Hx Cardiac Disease: No Hx Renal Disease: No Hx Cirrhosis: No Hx Alcoholism: No Hx HIV/AIDS: No Hx Splenectomy or Spleen Trauma: No Other PMH: Asthma, prediabetes, breast CA - lumpectomy r side, - Social History Smoking Status: Never smoked Constitutional: Initial Vital Signs Temperature (C) 37 C 01/12/18 10:17 Heart Rate 96 01/12/18 10:17 Respiratory Rate 18 01/12/18 10:17 Blood Pressure 128/80 H 01/12/18 10:17 O2 Sat (%) 95 01/12/18 10:17 O2 Delivery Mode Room Air Allergies/Adverse Reactions: Penicillins Allergy (Severe, Verified 01/12/18 10:17) THROAT SWELLING meperidine HCl [From Demerol] Allergy (Intermediate, Verified 01/12/18 10:17) TACHYCARDIC levofloxacin [From Levaquin] Allergy (Mild, Verified 01/12/18 10:17) "COULDNT STAND UP - NO STRENGTH" oxycodone [From Percocet] Allergy (Mild, Verified 01/12/18 10:17) Other-Enter Comments epinephrine [Epinephrine] Allergy (Unknown, Verified 01/12/18 10:17) TACHYCARDIC meperidine Allergy (Unknown, Verified 01/12/18 10:17) chloramphenicol [From Chloromycetin] Allergy (Verified 01/12/18 10:17) Levaquin Allergy (Unknown, Uncoded 05/20/17 11:55) tendonopathy Home Medications: Medication Instructions Recorded Montelukast Sodium [Singulair 10 10 mg PO DAILY@1800 01/12/18 mg (*)] Medical Decision Making ED Course/Re-evaluation: CHIEF COMPLAINT: HISTORY OF PRESENT ILLNESS: must have 4 elements: Location, Quality, Severity , Duration, Timing, Context, Modifying Factors, Associated Signs and Symptoms REVIEW OF SYSTEMS: A comprehensive 10 system review of systems is otherwise negative aside from elements mentioned in the history of present illness and medical decision making. PHYSICAL EXAM: HR, BP, O2 Sat, RR. Temp noted General Appearance: Alert, well hydrated, appropriate, and non-toxic appearing. Head: Atraumatic without scalp tenderness or obvious injury Eyes: Pupils equal, round, reactive to light and accommodation, EOMI, no trauma , no injection. Ears: Clear bilaterally, no perforation, normal landmarks Nose: Atraumatic, no rhinorrhea, clear. Throat: There is no erythema or exudates, no lesions, normal tonsils, mucus membranes moist. Neck: Supple, 2+ carotid upstroke, nontender, no lymphadenopathy. Respiratory: No retractions, no distress, no wheezes, and no accessory muscle use. Lungs are clear to auscultation bilaterally. Cardiovascular: Regular rate and rhythm, no murmurs, rubs, or gallops. Bilateral carotid, radial, dorsalis pedis, and posterior tibial pulses intact. Good capillary refill all extremities. Gastrointestinal: Abdomen is soft, nontender, non-distended, no masses, no rebound, no guarding, no peritoneal signs. Musculoskeletal: Normal active ROM of all extremities, atraumatic. Neurological: Alert, appropriate, and interactive. The patient has normal DTRs and non-focal cranial nerves, motor, sensory, and cerebellar exam. Skin: No rashes, good turgor, no nodules on palpation. Past medical history: Past surgical history: Family history: Social history: DIAGNOSTICS/PROCEDURES/CRITICAL CARE TIME: DIFFERENTIAL DIAGNOSIS: MEDICAL DECISION MAKING: Departure - Departure Referrals: Lilia Romero MD [Primary Care Provider] - As per Instructions
--- NOTE | 2018-01-12 11:19 | EDPHY ---
H & P Stated Complaint: Here Fri post fall;pain in L wrist very painful;unrelieved w/ OTC meds Time Seen by Provider: 01/12/18 10:29 - Medical/Surgical History Hx Asthma: Yes Hx Chronic Respiratory Disease: No Hx Diabetes: Yes Hx Cardiac Disease: No Hx Renal Disease: No Hx Cirrhosis: No Hx Alcoholism: No Hx HIV/AIDS: No Hx Splenectomy or Spleen Trauma: No Other PMH: Asthma, prediabetes, breast CA - lumpectomy r side, - Social History Smoking Status: Never smoked Constitutional: Initial Vital Signs Temperature (C) 37 C 01/12/18 10:17 Heart Rate 96 01/12/18 10:17 Respiratory Rate 18 01/12/18 10:17 Blood Pressure 128/80 H 01/12/18 10:17 O2 Sat (%) 95 01/12/18 10:17 O2 Delivery Mode Room Air Allergies/Adverse Reactions: Penicillins Allergy (Severe, Verified 01/12/18 10:17) THROAT SWELLING meperidine HCl [From Demerol] Allergy (Intermediate, Verified 01/12/18 10:17) TACHYCARDIC levofloxacin [From Levaquin] Allergy (Mild, Verified 01/12/18 10:17) "COULDNT STAND UP - NO STRENGTH" oxycodone [From Percocet] Allergy (Mild, Verified 01/12/18 10:17) Other-Enter Comments epinephrine [Epinephrine] Allergy (Unknown, Verified 01/12/18 10:17) TACHYCARDIC meperidine Allergy (Unknown, Verified 01/12/18 10:17) chloramphenicol [From Chloromycetin] Allergy (Verified 01/12/18 10:17) Levaquin Allergy (Unknown, Uncoded 05/20/17 11:55) tendonopathy Home Medications: Medication Instructions Recorded Albuterol [Proventil Inhaler HFA 2 puffs IH 01/12/18 (*)] Ciprofloxacin [Cipro] 500 mg PO 01/12/18 Esomeprazole Magnesium [Nexium] 20 mg PO 01/12/18 Furosemide [Lasix] 40 mg PO 01/12/18 Ipratropium [Atrovent Hfa (*)] 200 puffs IH 01/12/18 LORazepam [Ativan (*)] 0.5 mg PO 01/12/18 Montelukast Sodium [Singulair 10 10 mg PO DAILY@1800 01/12/18 mg (*)] metFORMIN HCL [Glucophage 500 mg 500 mg PO 01/12/18 (*)] Medical Decision Making - Diagnostics Imaging: I viewed and interpreted images myself ED Course/Re-evaluation: CHIEF COMPLAINT: Wrist pain, recent fracture HISTORY OF PRESENT ILLNESS: The patient is a 72 y/o female arriving with a daughter complaining of worsening left wrist pain and swelling in the setting of a known fracture. Two days ago on 01/10/18 she fell and injured her left wrist and right elbow. X-rays showed possible hairline fractures of the distal radial metaphysis and triquetrum with widening of the joint between the scaphoid and lunate on the left side and a mildly impacted radial head fracture on the right elbow. She went home in a Velcro splint and sling and developed progressively worsening pain and swelling in her left hand and wrist. She has been using ibuprofen and acetaminophen for pain due to history of side effects with Vicodin and Percocet. Last night when she got up to use the bathroom she had "excruciating 02/24 pain" and fell onto her left hand, which worsened her symptoms. Her daughter administered 2mg-4mg doses of Dilaudid for her pain with only slight alleviation. She returned today due to worsening pain. She had some difficulty moving her fingers over night, but this improved when her daughter loosened the splint. No weakness or paresthesias. REVIEW OF SYSTEMS: A 10 point review of systems was performed and is negative with the exception of the elements mentioned in the history of present illness. PHYSICAL EXAM: HR, BP, O2 Sat, RR. Temp noted General Appearance: Alert, well hydrated, appropriate, and non-toxic appearing. Head: Atraumatic without scalp tenderness or obvious injury Eyes: Pupils equal, round, reactive to light and accommodation, EOMI, no trauma , no injection. Nose: Atraumatic, no rhinorrhea, clear. Throat: Mucus membranes moist. Neck: Supple, non-tender, no lymphadenopathy. Respiratory: No retractions, no distress, no wheezes, and no accessory muscle use. Lungs are clear to auscultation bilaterally. Cardiovascular: Regular rate and rhythm, no murmurs, rubs, or gallops. Good capillary refill all extremities. Gastrointestinal: Abdomen is soft, non-tender, non-distended, no masses, no rebound, no guarding, no peritoneal signs. Musculoskeletal: Tenderness and swelling over left hand and wrist. Velcro splint in place and sling on right arm. Otherwise normal active ROM of all extremities, atraumatic. Neurological: Alert, appropriate, and interactive. The patient has non-focal cranial nerves, motor, sensory, and cerebellar exam. Skin: No rashes, good turgor, no nodules on palpation. PAST MEDICAL HISTORY: Breast cancer, asthma, prediabetes PAST SURGICAL HISTORY: Mastectomy SOCIAL HISTORY: Daughter at bedside. Prior medical records reviewed including imaging reports from 01/10/18. DIAGNOSTICS/PROCEDURES/CRITICAL CARE TIME: Left wrist x-ray: no change from prior Left hand x-ray: no change from prior DIFFERENTIAL DIAGNOSIS: The differential diagnosis for the patient's pain included but was not limited to fracture, ligamentous injury, contusion, muscular strain. MEDICAL DECISION MAKING: This is a 72 y/o female with a recent wrist fracture who returns now with worsening left wrist and hand pain over the last 2 days. She has pain and swelling over her left wrist. Plan to reevaluate with additional x-rays. 2mg PO Dilaudid ordered for pain. X-rays show no changes from prior. Plan for splinting with 3-way orthoglass sugar tong/thumbspika and referral to hand surgery for follow up. She will be discharged with script for oral Dilaudid for pain. Return precautions discussed. She is comfortable with this plan. - Data Points Medications Given: Discontinued Medications Hydromorphone HCl (Dilaudid) 2 mg PO EDNOW ONE Stop: 01/12/18 12:05 Last Admin: 01/12/18 12:06 Dose: 2 mg Departure - Departure Disposition: Home, Routine, Self-Care Condition: Good Instructions: Wrist Fracture in Adults (ED) Additional Instructions: 1. Take Dilaudid as prescribed as needed for severe pain. 2. Continue taking ibuprofen and acetaminophen as directed on the packaging for pain and inflammation. 3. Keep splint in place until follow up with orthopedist. 4. Follow up with orthopedist within the next week for reevaluation. 5. Return to the ED for worsening of condition. Referrals: Lilia Romero MD [Primary Care Provider] - As per Instructions Noah Saleem MD [Medical Doctor] - As per Instructions Ricky Woodruff MD [Medical Doctor] - As per Instructions Report Scribed for: Jacob Winston Report Scribed by: Cami Nicole Date of Report: 01/12/18 Time of Report: 11:20
[2018-01-12] MEDS ORDERED: HYDROmorphONE/DILAUDID 2 MG TAB PO ONE (12:04)
[2018-01-12 12:50] VITALS: BP 159/105
== END 2018-01-12 13:00 | disposition home or self-care (01) ==
LOC: EEVIPCON 10:15
PROC: 2W3DX1Z Immobilization of Left Lower Arm using Splint (ICD-10-PCS; principal; 2018-01-12)
DX: S52.502A Unspecified fracture of the lower end of left radius, initial encounter for closed fracture (principal); S62.012A Displaced fracture of distal pole of navicular [scaphoid] bone of left wrist, initial encounter for closed fracture; S62.112A Displaced fracture of triquetrum [cuneiform] bone, left wrist, initial encounter for closed fracture; J45.909 Unspecified asthma, uncomplicated; R73.03 Prediabetes; Z85.3 Personal history of malignant neoplasm of breast; W19.XXXA Unspecified fall, initial encounter; Y92.9 Unspecified place or not applicable; Y93.9 Activity, unspecified; Y99.9 Unspecified external cause status
CPT/HCPCS: 29125; 73110; 73130; 99283; A4565